=== PATIENT | male | born 1960 | race Caucasian/White ===

== ENCOUNTER 2018-12-15 09:57 | Inpatient (IN) ==
[2018-12-15] MEDS ORDERED: MoRPHine SULFATE 4 MG/ML 1 ML CARP\\VIAL ONE (10:18)
[2018-12-15] MEDS ORDERED: ONDANSETRON INJ 2 MG/ML 2 ML VIAL ONE (10:21)
[2018-12-15] MEDS ORDERED: SODIUM CHLORIDE 0.9% 1000ML 1,000 ML IV ONE ×3 (10:23→11:16)
[2018-12-15] MEDS ORDERED: ONDANSETRON INJ 2 MG/ML 2 ML VIAL IV STA (10:24)
[2018-12-15] MEDS ORDERED: OPTIRAY 320 125ml IV PRN (10:36)
--- NOTE | 2018-12-15 10:37 | XRay Report ---
XR chest 1V portable CLINICAL HISTORY: Chest pain. COMPARISON STUDY: No previous studies for comparison. FINDINGS: Lung volumes are normal. There is no pneumothorax or pleural effusion. There is no consolid ation or evidence for pulmonary edema. Cardiac size is normal. Mediastinal contours are normal. IMPRESSION: No acute cardiopulmonary findings. Electronically signed by: Tony Bonilla M.D. 12/15/2018 10:36 AM
[2018-12-15 10:38] LABS: Hematocrit (blood only) 48.3 % (42-52); Hemoglobin 16.7 g/dL (14.0-18.0); Mean Corpuscular Hgb Conc 34.6 g/dL (32-36); Mean Corpuscular Volume 98.4 fL (80-100); Mean Platelet Volume 11.6 fL (7.4-10.4); Platelet Count 299 K/uL (130-400); RDW Coefficient of Variation 12.5 % (11.5-14.5); RDW Standard Deviation 44.9 fL (36.4-46.3); Red Blood Count 4.91 M/uL (4.7-6.1); White Blood Count 26.26 K/uL (4.8-10.8)
[2018-12-15 10:42] LABS: iSTAT Creatinine 0.7 mg/dl (0.6-1.3); iSTAT Hemoglobin 17.3 g/dl (14.0-18.0); iSTAT Ionized Calcium 1.18 mmol/l (1.12-1.32); iSTAT Potassium 4.8 mEq/L (3.3-5.0)
--- NOTE | 2018-12-15 10:55 | CT Scan Report ---
CT OF THE CHEST WITH IV CONTRAST CLINICAL HISTORY: back pain and chest pain COMPARISON STUDY: No previous studies for comparison. TECHNIQUE: Following the IV administration of 119 mL of Optiray-320, CT of the thorax was performed from the thoracic inlet to the lung bases. Images are reviewed in the axial, sagittal, and coronal pl anes. IV contrast was administered without complication. A dose lowering technique was utilized adhe ring to the principles of ALARA. CT DOSE: 590.38 mGy.cm FINDINGS: Thyroid: Imaged portions of the thyroid gland are normal in appearance. Thoracic aorta: Noncontrast images reveal no evidence of acute aortic hematoma. Postcontrast images r eveal no evidence of thoracic aortic dissection. There is no evidence for aneurysm. Pulmonary vasculature: There is no definite pulmonary embolism however the study is limited due to co ntrast timing and significant respiratory motion artifact. HEART: There is no pericardial effusion. Lungs and pleural spaces: There is significant respiratory motion artifact. There is no pneumothorax. There is no focal pulmonary consolidation. There are no pleural effusions. Mediastinum: There is no evidence of pathologic lymphadenopathy Ramonita: There is no evidence of pathologic hilar adenopathy Axilla: There is no evidence of pathologic axillary lymphadenopathy Upper abdomen: Partially visualized upper abdominal viscera is within normal limits. Skeletal structures: There are no lytic or blastic osseous lesions. IMPRESSION: 1. Study compromised due to respiratory motion artifact 2. No evidence of thoracic aortic aneurysm or dissection 3. No acute intrathoracic findings. Electronically signed by: Williams Jacques M.D. 12/15/2018 10:54 AM
[2018-12-15 11:10] LABS: Alanine Aminotransferase 43 U/L (12-78); Aspartate Aminotransferase 25 U/L (15-37); BUN Creatinine Ratio 15.3 (10-20); Blood Urea Nitrogen 19 mg/dl (7-18); Calcium 8.2 mg/dl (8.5-10.1); Carbon Dioxide 5 mmol/L (21-32); Chloride 106 mmol/L (98-107); Creatinine Clr Calc Pharmacy 65.2 ml/min; Est GFR (African American) 71.9; Glucose 384 mg/dl (70-99); Sodium 137 mmol/L (136-145)
[2018-12-15 11:12] LABS: Albumin Globulin Ratio 1.1 (0.9-2); Alkaline Phosphatase 153 U/L (45-117); Bilirubin,Total 0.5 mg/dl (0.2-1); Globulin 3.5 gm/dl (2.5-4.0); Total Protein 7.5 gm/dl (6.4-8.2); Troponin I < 0.015 ng/ml (0-0.045)
--- NOTE | 2018-12-15 11:14 | CT Scan Report ---
CT ANGIOGRAM OF THE ABDOMEN AND PELVIS CLINICAL HISTORY: Atypical chest pain. Back pain. COMPARISON STUDY: Abdominal CT dated 03/20/2009. TECHNIQUE: Following the IV administration of 119 cc of Optiray 320, CT angiogram of the abdomen and pelvis was performed from the lung bases the proximal femora. Images are reviewed in the axial, sagit chela, and coronal planes. 3-D MIPS images are created and assessed. IV contrast was administered witho ut complication. A dose lowering technique was utilized adhering to the principles of ALARA. The exa mination is degraded by motion artifact. FINDINGS: Lower chest: The heart is enlarged and without pericardial effusion. The lung bases are clear. There is a small hiatal hernia. Liver: The contrast-enhanced liver is normal in size, contour, and attenuation. There is no intrahepa tic or ductal dilatation. Gallbladder: Unremarkable. Spleen: Normal in size and attenuation, noting heterogeneous arterial phase enhancement. Pancreas: Moderately atrophic and grossly unremarkable. Adrenal glands: Unremarkable. Kidneys: The contrast enhanced kidneys are normal in size and without hydronephrosis. The kidneys enh ance symmetrically. Abdominal aorta and iliac arteries: The abdominal aorta is normal in course and caliber noting mild a therosclerotic calcification. The iliac arteries are widely patent bilaterally. There is no aneurysm or dissection identified. Major branches of the abdominal aorta: The celiac trunk, superior mesenteric, and inferior mesenteric arteries are widely patent. Hepatic arterial anatomy is conventional. The splenic artery is patent. Single bilateral renal arteries are patent. Bowel: There is moderate colonic fecal retention. No bowel obstruction is seen. The appendix is norm al as visualized. Peritoneum: There is no intraperitoneal free air or abdominal ascites. There is a fat-containing umbi lical hernia. There is induration within the simultaneous fat of the ventral abdominal wall. Lymphadenopathy: None. Pelvic viscera: The prostate gland is enlarged and heterogeneous, measuring 5.5 cm in transverse diam eter. There is median lobe hypertrophy. The bladder is distended. The bladder wall is thickened and t rabeculated indicating chronic outlet obstruction. Skeletal structures: No destructive bony lesions are seen. IMPRESSION: 1. Motion compromised examination. 2. There is no aneurysm or dissection identified involving the abdominal aorta. 3. Unremarkable CT angiogram of the major branches of the abdominal aorta. 4. Cardiomegaly. 5. No acute infectious or inflammatory findings are identified in the abdomen or pelvis. 6. Moderate constipation. 7. Prostatomegaly with evidence of chronic bladder outlet obstruction. 8. Foci of induration are seen throughout the subcutaneous fat of the ventral abdominal wall, possibl y related to subcutaneous injections. Clinical correlation will be required. Electronically signed by: Navjot Barriga M.D. 12/15/2018 11:13 AM
[2018-12-15] MEDS ORDERED: SEVERE STRESS LEVEL ONE (11:15)
[2018-12-15] MEDS ORDERED: DKA GOAL RANGE 150-250 mg/dl ONE ×2 (11:15→12:57)
[2018-12-15] MEDS ORDERED: INSULIN REGULAR 250 UNITS in SODIUM CHLORIDE 0.9% 247.5 ML IV SCH ×2 (11:15→12:57)
[2018-12-15] MEDS ORDERED: PIPERACILLIN/TAZOBACTAM 4.5 GM/120 ML BAG IV ONE (11:16)
[2018-12-15] MEDS ORDERED: VANCOMYCIN CONSULT ACTIVE PRN (11:16)
[2018-12-15] MEDS ORDERED: VANCOMYCIN HCL 1,500 MG in SODIUM CHLORIDE 0.9% 500 ML IV ONE (11:16)
[2018-12-15] MEDS ORDERED: PIPERACILL/TAZOBAC CONSULT ACTIVE PRN ×2 (11:16→12:57)
[2018-12-15 11:17] LABS: Basophils # (auto) 0.12 K/uL (0-0.2); Basophils % (auto) 0.5 %; Eosinophils # (auto) 0.07 K/uL (0-0.5); Eosinophils % (auto) 0.3 %; Immature Granulocytes # (auto) 0.38 K/uL (0.00-0.02); Immature Granulocytes % (auto) 1.4 %; Lymphocytes # (auto) 3.93 K/uL (1.2-3.4); Monocytes # (auto) 1.13 K/uL (0.11-0.59); Monocytes % (auto) 4.3 %; Neutrophils # (auto) 20.63 K/uL (1.4-6.5); Neutrophils % (auto) 78.5 %
[2018-12-15] MEDS ORDERED: SODIUM BICARBONATE 8.4% 150 MEQ in DEXTROSE 5% 1,000 ML IV SCH (11:40)
[2018-12-15 11:46] LABS: Oxygen Saturation VBG 90.4 %; pH VBG 6.9 (7.36-7.41)
[2018-12-15 11:52] LABS: Acetaminophen < 2 ug/ml (10-30); Salicylate 5.5 mg/dl (2.8-20)
--- NOTE | 2018-12-15 12:02 | History & Physical Report ---
Date of Service December 15, 2018 Assessment & Plan (1) DKA (diabetic ketoacidoses): DM-I pt Has not checked BS in years per Recent weight loss Elevated AG and LA DKA protocol A1c pending Admit to ICU (2) Leukocytosis: Likely in response to DKA Diffuse rash Will cover with abx for now but no clear infection Vanco/zosyn in the ED, will continue zosyn for now (3) HTN (hypertension): continue home meds when taking PO PRN for now (4) Alcohol abuse: is uncertain and pt does not answer states at least 1 glass of per night and "maybe more. That could be an issue." Will put on risk for alcohol withdrawal protocol for now (5) DVT prophylaxis: Heparin for DVT proph History of Present Illness Primary Care Provider: Mike Sage MD 58 y/o M who was brought to the ED by EMS after he was found to be SOB and ill appearing at home. tells me that pt had been in [place] for a friend's birthday until yesterday. He was complaining of back pain yesterday, which he attributed to carrying heavy bags. was up this AM preparing for work around 5a and pt stated his back hurt more at that time. Then around 6am pt had 3 episodes of emesis and started to have SOB. also noted a diffuse rash over his chest, abd, back that she had not seen prior. At one point her asked her to rub an area under his L axilla, but he did not expressly state he was having chest pain. Pt was thrashing around in bed and having difficulty breathing, so she called 911. states that pt is a Type I DM pt. She is uncertain of his insulin regimen at home but know that he takes humalin and lantus. She states that he has stopped taking his BS for the last several years. She states he was recently started on HTN medication in the last year. She states he has lost a lot of weight in the last year and she has expressed concern to him about this. She denies known hx of prostate issues, but states that on recent car trips they have had to stop almost every hour for him to urinate. states that he has never had an episode of DKA to her knowledge. "He is never sick." She states he has been struggling recently as he has been unemployed for the last year. Pt states he is still having back pain. He also states he is very thirsty. Denies headache, vision changes, nausea, abd pain. Pt denies fever, SOB, chest pain, c/d, LE pain or swelling. Allergies Allergy/AdvReac Type Severity Reaction Status Date / Time No Known Allergies Allergy Unverified 12/15/18 11:31 Home Medications Home Medications Medication Instructions Recorded Confirmed Type insulin glargine [Lantus U-100 10 units SUBCUT QAM 12/15/18 12/15/18 History Insulin] losartan 25 mg PO DAILY 12/15/18 12/15/18 History Past Med/Surg History Medical History Diabetes HTN (hypertension) Family History Father Heart disease [facility] Social History Preferred Language: Serbian marital status: Current Living Situation: Spouse current occupational status: unemployed and previously employed Feels Safe at Home: Yes Smoking Status: Never smoker Hx Alcohol Use: Yes Hx Substance Use: No Review of Systems Pertinent positives and negatives reviewed in HPI--all others negative Physical Exam Vital Signs (Past 24 Hours): Last Vital Signs Pulse 114 H 12/15/18 10:45 Resp 32 H 12/15/18 10:45 BP 162/87 H 12/15/18 10:45 Pulse Ox 98 12/15/18 10:45 Constitutional: WD/WN, vitals as above + acute distress and + ill appearing Pt has lost weight since I have last seen him Thrashing in bed at times, other times resting comfortably Eyes: normal visual diaz by confrontation and + anicteric sclerae Neck: normal visual inspection and trachea midline Respiratory: + respiratory distress (thrashing at times, other times lying calm and breathing is WNL) Auscultation: lungs clear to auscultation bilaterally Cardiovascular: Rate/Rhythm: regular rhythm and + tachycardic Gastrointestinal (Abdomen): Inspection/Auscultation: abdomen not distended Percussion/Palpation: abdomen soft; abdomen nontender Musculoskeletal: Head/Neck/Chest: normocephalic and head atraumatic negative for edema, peripheral pulses intact Skin: diffuse rash over trunk, patchy Neurologic: awake; not confused Speech / Cognition: normal speech Psychiatric: Orientation: alert Affect: + anxious affect Results & Data Diagnostic Findings CT chest: neg for acute CXR: neg for acute CT AP: 1. Motion compromised examination. 2. There is no aneurysm or dissection identified involving the abdominal aorta. 3. Unremarkable CT angiogram of the major branches of the abdominal aorta. 4. Cardiomegaly. 5. No acute infectious or inflammatory findings are identified in the abdomen or pelvis. 6. Moderate constipation. 7. Prostatomegaly with evidence of chronic bladder outlet obstruction. 8. Foci of induration are seen throughout the subcutaneous fat of the ventral a bdominal wall, possibly related to subcutaneous injections. Clinical correlation will be required. ECG Rhythm: sinus tachycardia Code Status & VTE Plan Code Status Full code VTE Prophylaxis Plan VTE Prophylaxis will be ordered: Yes (1) DKA (diabetic ketoacidoses) Diabetes mellitus complication detail: without coma Diabetes mellitus type: type 1 Qualified Code(s): E10.10 - Type 1 diabetes mellitus with ketoacidosis without coma
[2018-12-15] MEDS ORDERED: LORazepam 1 MG TAB PO PRN ×2 (12:18)
[2018-12-15] MEDS ORDERED: LORazepam 1 MG/2 ML VIAL IV PRN (12:18)
[2018-12-15] MEDS ORDERED: NovoLIN-R BOLUS FROM BAG IV ONE (12:20)
[2018-12-15] MEDS: INSULIN REGULAR 250 UNITS in SODIUM CHLORIDE 0.9% 247.5 ML IV SCH (12:23)
[2018-12-15] MEDS ORDERED: CARBOHYDRATES FOR HYPOGLYCEMIA PO PRN (12:30)
[2018-12-15] MEDS ORDERED: GLUCAGON FOR INJ 1 MG VIAL IM PRN (12:30)
[2018-12-15] MEDS ORDERED: GLUCOSE 10 TABS/TUBE PO PRN (12:30)
[2018-12-15] MEDS ORDERED: DEXTROSE 50% 50 ML SYRINGE IV PRN (12:30)
[2018-12-15] MEDS ORDERED: GLUCOSE 40% GEL 15 GM TUBE PO PRN (12:30)
[2018-12-15 12:36] LABS: HCO3 ABG 3 mmol/L (19-24); Oxygen Saturation ABG 99.2 % (90-95); PCO2 ABG 14 mmHg (35-46); PO2 ABG 203 mm/Hg (80-95)
[2018-12-15] MEDS ORDERED: METOPROLOL TARTRATE 1 MG/ML VIAL IV PRN (12:38)
[2018-12-15 12:40] LABS: Allen Test Pos (Pos)
[2018-12-15] MEDS ORDERED: MoRPHine SULFATE 10 MG/ML CARP/VIAL IV STA (12:56)
[2018-12-15] MEDS ORDERED: MODERATE STRESS LEVEL ONE (12:57)
[2018-12-15] MEDS ORDERED: ICU PROTOCOL FOR HYPERGLYCEMIA PRN (12:57)
[2018-12-15] MEDS ORDERED: PIPERACILLIN/TAZOBACTAM 4.5 GM in DEXTROSE 5% 100 ML IV STA (12:57)
[2018-12-15] MEDS ORDERED: PHARMACY GLYCEMIC MGMT CONSULT STA (12:57)
[2018-12-15] MEDS ORDERED: INSULIN ASPART 100 UNITS/ML 3 ML PEN SC SCH (13:00)
[2018-12-15] MEDS ORDERED: PIPERACILLIN/TAZOBACTAM 4.5 GM in DEXTROSE 5% 100 ML IV ONE (13:30)
[2018-12-15 13:48] LABS: Base Excess VBG -27.6 mEq/L; pH VBG 6.85 (7.36-7.41)
[2018-12-15] MEDS: INSULIN ASPART 100 UNITS/ML 3 ML PEN SC SCH ×3 (14:18→20:10)
[2018-12-15] MEDS ORDERED: SODIUM BICARB 8.4% INJ 50 MEQ/50 ML SYR ONE (14:33)
[2018-12-15] MEDS ORDERED: SODIUM BICARB 8.4% INJ 50 MEQ/50 ML SYR IV STA (14:35)
[2018-12-15 14:42] LABS: BUN Creatinine Ratio 15.2 (10-20); Blood Urea Nitrogen 21 mg/dl (7-18); Calcium 7.9 mg/dl (8.5-10.1); Carbon Dioxide < 5 mmol/L (21-32); Chloride 105 mmol/L (98-107); Est GFR (African American) 62.7; Est GFR (Non-African American) 54.1; Glucose 471 mg/dl (70-99); Magnesium 2.6 mg/dl (1.8-2.4); Phosphorus 7.2 mg/dl (2.5-4.9); Potassium 4.5 mmol/L (3.5-5.1); Sodium 136 mmol/L (136-145)
[2018-12-15 14:57] LABS: Amphetamines+Metham, Urine Neg (Neg); Barbiturates, Urine Neg (Neg); Benzodiazepine, Urine Neg (Neg); Cocaine, Urine Neg (Neg); MDMA (Ecstacy), Urine Neg (Neg); Methadone, Urine Neg (Neg); Opiate, Urine Neg (Neg); Phencyclidine, Urine Neg (Neg)
--- NOTE | 2018-12-15 15:11 | Critical Care Consultation ---
Date of Consultation December 15, 2018 Assessment & Plan (1) DKA (diabetic ketoacidoses): Reason Critically Ill: 58-year-old male with past medical history of DM type I, who presents to the ICU with acute metabolic encephalopathy secondary to DKA. Neuro - [facility] ICU: Positive Acute metabolic encephalopathy/DKA/metabolic acidosis -Blood glucose 390 in the ED, pH 6.90 -Placed on insulin drip and bicarb drip -Hemoglobin A1c pending, states he has not been checking his glucose regularly in the past 2 years -Every 4 hours BMP, mag and phosphorus, VBG -Every hour blood glucose Cardiac - Hypertensioncontinue losartan when appropriate Respiratory - Tachypneacompensating for metabolic acidosis GI - Abdominal tendernessCT abdomen negative for acute process, likely symptomatic from DKA - RENAL/LYTES - Q. 4-hour BMPs, potassium additive to fluids for anticipated hypokalemia during correction of acidosis - Foleystrict I's and O's Suspected BPHCT abdomen showed prostatomegaly and chronic hyperinflation of bladder, may need follow-up outpatient ENDO - DM type Imanaged as stated above, will transition to insulin injection when appropriate, will need consult for nurse educator during this admission HEME - LeukocytosisWBC 27 on admission, likely secondary to DKA/metabolic acidosis, will rule out infectious process - routine CBCs, trend ID - Vancomycin and Zosyn narrowed to Rocephin Blood cultures and pro-calcitonin pending Chest x-ray negative UA pending Influenza swab pending LINES/IV ACCESS - Peripheral IV x2, Florence DVT PROPHYLAXIS - SCDs, subcu heparin (2) DVT prophylaxis: (3) Metabolic acidosis: (4) Encephalopathy acute: Supervising Physician Co-Signing Physician Notes I have personally evaluated and examined this patient. I agree with assessment and plan of Cait HUGGINS. Initially attempted PICC line, patient unable to follow commands adequately and violated sterile field several times so this procedure was aborted and moved to central venous access. Please see procedure note for further details. Central venous access required due to patient moving arms and requiring aggressive potassium repletion for severe DKA with profound metabolic acidosis. I have personally spent 70 minutes of critical care time in the direct management of this patient. This is a life/limb threatening event. This includes time spent evaluating patient, direct bedside care, chart review, placing orders, interpretation of diagnostic studies, discussion with consultants, patient, and/or family members regarding treatment decisions, as well as other required patient management activities. This time is exclusive of all separately billable procedures, and teaching time and separate from and in addition to any other critical care service time. History of Present Illness Attending Physician: Cuong Logan History of Present Illness 58-year-old male with past medical history diabetes type 1, who presented to the ED via EMS with altered mental status. Patient returned from a trip to [place] yesterday and had been complaining of back pain. states that the patient had episode of emesis x3 this morning and she later found the patient thrashing and breathing rapidly in bed. At this point she called 911. Of note, patient had stated he had not been feeling well for the past couple of weeks. She also states that the patient had been poorly managing his diabetes for the past 2 years. In the ED, blood glucose was 390 on admission and pH was 6.90. He was placed on insulin drip and bicarb drips. On arrival to the ICU the patient is confused, appearing very uncomfortable and tachypneic. He was afebrile, and complains of abdominal pain with palpation and back pain. He denies chest pain, neck pain, palpitations, syncope, dizziness. Of note, pH dropped to 6.85 on VBG, and patient given 2 amps of bicarb. Will remain in ICU for management of DKA with severe metabolic acidosis for now. Allergies Allergy/AdvReac Type Severity Reaction Status Date / Time No Known Allergies Allergy Unverified 12/15/18 11:31 Home Medications Home Medications Medication Instructions Recorded Confirmed Type insulin glargine [Lantus U-100 10 units SUBCUT QAM 12/15/18 12/15/18 History Insulin] losartan 25 mg PO DAILY 12/15/18 12/15/18 History Patient History Medical History Diabetes HTN (hypertension) Family History Father Heart disease [place] Social History Communication Ability: Effective Handle Bender Required: No Beliefs That Will Affect Care: None marital status: Current Living Situation: Spouse current occupational status: unemployed and previously employed Other Information That Helps Us Care for You: No Feels Safe at Home: Yes Safety Concerns: Feels Safe At This Time Smoking Status: Light tobacco smoker Hx Alcohol Use: Yes Hx Substance Use: No Review of Systems Unable to assess 12 system ROS secondary to altered mental status. See HPI Physical Exam Vital Signs (Past 24 Hours): Last Vital Signs Temp 35.8 C L 12/15/18 12:48 Pulse 110 H 12/15/18 12:48 Resp 36 H 12/15/18 12:48 BP 155/85 H 12/15/18 12:48 Pulse Ox 100 12/15/18 12:48 Constitutional: + acute distress, + ill appearing and + altered mental status Eyes: PERRL, conjunctivae normal, anicteric sclerae Neck: trachea midline, no thyromegaly No nuchal rigidity Respiratory: normal respiratory effort, lungs clear to auscultation Rapid and shallow breathing Cardiovascular: RRR, no murmur, no edema Rate/Rhythm: + tachycardic Heart Sounds: normal S1 and normal S2 No edema, no JVD Gastrointestinal (Abdomen): Abdomen is soft flat. Tender with palpation. Bowel normoactive with auscultation in all 4 quadrants Skin: no rashes, warm and dry Neurologic: Patient is confused but alert to self and identifies family. Displays rapid alternating movements. PERRLA. Cough gag corneals intact. Genitourinary: Florence inserted Results & Data Laboratory Results Laboratory Results - last 24 hr 12/15/18 12/15/18 12/15/18 10:12 10:25 10:25 WBC 26.26 H RBC 4.91 Hgb 16.7 POC Hgb Hct 48.3 POC Hct MCV 98.4 MCH 34.0 MCHC 34.6 RDW Std Deviation 44.9 RDW Coeff of Mart 12.5 Plt Count 299 MPV 11.6 H Immature Gran % (Auto) 1.4 Neut % (Auto) 78.5 Lymph % (Auto) 15.0 Stanley % (Auto) 4.3 Eos % (Auto) 0.3 Baso % (Auto) 0.5 Immature Gran # (Auto) 0.38 H Neut # (Auto) 20.63 H Lymph # (Auto) 3.93 H Stanley # (Auto) 1.13 H Eos # (Auto) 0.07 Baso # (Auto) 0.12 ABG pH ABG pCO2 ABG pO2 ABG HCO3 ABG O2 Saturation ABG Base Excess [place] Test VBG pH VBG pCO2 VBG pO2 VBG HCO3 VBG O2 Saturation VBG Base Excess Barometric Pressure Oxygen Given POC Sodium Sodium 137 POC Potassium Potassium 5.0 POC Chloride Chloride 106 Carbon Dioxide 5 L* POC Total CO2 Anion Gap 26.0 H POC Anion Gap POC BUN BUN 19 H Creatinine 1.26 POC Creatinine Est Cr Clr Drug Dosing 65.2 Est GFR ( Amer) 71.9 Est GFR (Non-Af Amer) 62.0 BUN/Creatinine Ratio 15.3 Glucose 384 H* POC Glucose 367 H* POC Glucose (other) POC Lactic Acid Jaspal Calcium 8.2 L POC Ioniz Calcium Vivi Phosphorus Magnesium Total Bilirubin 0.5 AST 25 ALT 43 Alkaline Phosphatase 153 H Troponin I < 0.015 Total Protein 7.5 Albumin 4.0 Globulin 3.5 Albumin/Globulin Ratio 1.1 Lipase 55 L Beta-Hydroxybutyric Acd Specimen Hemolysis Salicylates Acetaminophen Ethyl Alcohol mg/dL 12/15/18 12/15/18 12/15/18 10:25 10:29 10:58 WBC RBC Hgb POC Hgb 17.3 Hct POC Hct 51 MCV MCH MCHC RDW Std Deviation RDW Coeff of Mart Plt Count MPV Immature Gran % (Auto) Neut % (Auto) Lymph % (Auto) Stanley % (Auto) Eos % (Auto) Baso % (Auto) Immature Gran # (Auto) Neut # (Auto) Lymph # (Auto) Stanley # (Auto) Eos # (Auto) Baso # (Auto) ABG pH ABG pCO2 ABG pO2 ABG HCO3 ABG O2 Saturation ABG Base Excess [place] Test VBG pH VBG pCO2 VBG pO2 VBG HCO3 VBG O2 Saturation VBG Base Excess Barometric Pressure Oxygen Given POC Sodium 139 Sodium POC Potassium 4.8 Potassium POC Chloride 114 H Chloride Carbon Dioxide POC Total CO2 6 L* Anion Gap POC Anion Gap 26.0 H POC BUN 20 H BUN Creatinine POC Creatinine 0.7 Est Cr Clr Drug Dosing Est GFR ( Amer) Est GFR (Non-Af Amer) BUN/Creatinine Ratio Glucose POC Glucose POC Glucose (other) 393 H* POC Lactic Acid Jaspal Calcium POC Ioniz Calcium Vivi 1.18 Phosphorus Magnesium Total Bilirubin AST ALT Alkaline Phosphatase Troponin I Total Protein Albumin Globulin Albumin/Globulin Ratio Lipase Beta-Hydroxybutyric Acd 85.71 H Specimen Hemolysis Salicylates 5.5 Acetaminophen < 2 L Ethyl Alcohol mg/dL 12/15/18 12/15/18 12/15/18 11:05 11:26 11:59 WBC RBC Hgb POC Hgb Hct POC Hct MCV MCH MCHC RDW Std Deviation RDW Coeff of Mart Plt Count MPV Immature Gran % (Auto) Neut % (Auto) Lymph % (Auto) Stanley % (Auto) Eos % (Auto) Baso % (Auto) Immature Gran # (Auto) Neut # (Auto) Lymph # (Auto) Stanley # (Auto) Eos # (Auto) Baso # (Auto) ABG pH ABG pCO2 ABG pO2 ABG HCO3 ABG O2 Saturation ABG Base Excess [place] Test VBG pH 6.90 L VBG pCO2 22 L VBG pO2 78 VBG HCO3 4 VBG O2 Saturation 90.4 VBG Base Excess -28.0 Barometric Pressure 737.7 Oxygen Given POC Sodium Sodium POC Potassium Potassium POC Chloride Chloride Carbon Dioxide POC Total CO2 Anion Gap POC Anion Gap POC BUN BUN Creatinine POC Creatinine Est Cr Clr Drug Dosing Est GFR ( Amer) Est GFR (Non-Af Amer) BUN/Creatinine Ratio Glucose POC Glucose 450 H* POC Glucose (other) POC Lactic Acid Jaspal 4.46 H Calcium POC Ioniz Calcium Vivi Phosphorus Magnesium Total Bilirubin AST ALT Alkaline Phosphatase Troponin I Total Protein Albumin Globulin Albumin/Globulin Ratio Lipase Beta-Hydroxybutyric Acd Specimen Hemolysis Salicylates Acetaminophen Ethyl Alcohol mg/dL 12/15/18 12/15/18 12/15/18 12:05 13:03 13:17 WBC RBC Hgb POC Hgb Hct POC Hct MCV MCH MCHC RDW Std Deviation RDW Coeff of Mart Plt Count MPV Immature Gran % (Auto) Neut % (Auto) Lymph % (Auto) Stanley % (Auto) Eos % (Auto) Baso % (Auto) Immature Gran # (Auto) Neut # (Auto) Lymph # (Auto) Stanley # (Auto) Eos # (Auto) Baso # (Auto) ABG pH ABG pCO2 14 L ABG pO2 203 H ABG HCO3 3 L ABG O2 Saturation 99.2 H ABG Base Excess -28.9 L [place] Test Pos VBG pH 6.85 L VBG pCO2 35 L VBG pO2 41 VBG HCO3 6 VBG O2 Saturation 67.0 VBG Base Excess -27.6 Barometric Pressure 737.6 736.5 Oxygen Given ROOM AIR POC Sodium Sodium 136 POC Potassium Potassium 4.5 POC Chloride Chloride 105 Carbon Dioxide < 5 L* POC Total CO2 Anion Gap 27.0 H POC Anion Gap POC BUN BUN 21 H Creatinine 1.41 H POC Creatinine Est Cr Clr Drug Dosing 54.0 Est GFR ( Amer) 62.7 Est GFR (Non-Af Amer) 54.1 BUN/Creatinine Ratio 15.2 Glucose 471 H* POC Glucose POC Glucose (other) POC Lactic Acid Jaspal Calcium 7.9 L POC Ioniz Calcium Vivi Phosphorus 7.2 H Magnesium 2.6 H Total Bilirubin AST ALT Alkaline Phosphatase Troponin I Total Protein Albumin Globulin Albumin/Globulin Ratio Lipase Beta-Hydroxybutyric Acd Specimen Hemolysis Salicylates Acetaminophen Ethyl Alcohol mg/dL 12/15/18 13:17 WBC RBC Hgb POC Hgb Hct POC Hct MCV MCH MCHC RDW Std Deviation RDW Coeff of Mart Plt Count MPV Immature Gran % (Auto) Neut % (Auto) Lymph % (Auto) Stanley % (Auto) Eos % (Auto) Baso % (Auto) Immature Gran # (Auto) Neut # (Auto) Lymph # (Auto) Stanley # (Auto) Eos # (Auto) Baso # (Auto) ABG pH ABG pCO2 ABG pO2 ABG HCO3 ABG O2 Saturation ABG Base Excess [place] Test VBG pH VBG pCO2 VBG pO2 VBG HCO3 VBG O2 Saturation VBG Base Excess Barometric Pressure Oxygen Given POC Sodium Sodium POC Potassium Potassium POC Chloride Chloride Carbon Dioxide POC Total CO2 Anion Gap POC Anion Gap POC BUN BUN Creatinine POC Creatinine Est Cr Clr Drug Dosing Est GFR ( Amer) Est GFR (Non-Af Amer) BUN/Creatinine Ratio Glucose POC Glucose POC Glucose (other) POC Lactic Acid Jaspal Calcium POC Ioniz Calcium Vivi Phosphorus Magnesium Total Bilirubin AST ALT Alkaline Phosphatase Troponin I Total Protein Albumin Globulin Albumin/Globulin Ratio Lipase Beta-Hydroxybutyric Acd Specimen Hemolysis Salicylates Acetaminophen Ethyl Alcohol mg/dL < 3.0 Medications Administered Home Medications insulin glargine [Lantus U-100 Insulin] 10 units SUBCUT QAM 12/15/18 [History Confirmed 12/15/18] losartan 25 mg PO DAILY 12/15/18 [History Confirmed 12/15/18] Active Medications Dextrose (Dextrose 50%) 25 - 50 ml IV UD PRN; Protocol PRN Reason: Hypoglycemia Protocol Stop: 01/14/19 12:29 Glucagon (Glucagen) 1 mg IM UD PRN; Protocol PRN Reason: Hypoglycemia Protocol Stop: 01/14/19 12:29 Glucose (Glucose 40%) 15 - 30 gm PO UD PRN; Protocol PRN Reason: Hypoglycemia Protocol Stop: 01/14/19 12:29 Glucose (Dex4 Glucose) 4 - 8 tabs PO UD PRN; Protocol PRN Reason: Hypoglycemia Protocol Stop: 01/14/19 12:29 Heparin Sodium (Porcine) (Heparin Sodium (Porcine)) 5,000 units SQ Q12 PATSY Stop: 01/14/19 20:59 Sodium Bicarbonate 150 meq/ (Dextrose) 1,150 mls @ 120 mls/hr IV .Q9H35M PATSY Stop: 12/15/18 21:14 Last Admin: 12/15/18 12:16 Dose: 120 mls/hr Documented by: Insulin Human Regular 250 (units/ Sodium Chloride) 250 mls @ 3 mls/hr IV .Q24H PATSY; Protocol Stop: 01/14/19 12:19 Last Titration: 12/15/18 14:07 Dose: 5.9 units/hr, 5.9 mls/hr Documented by: Lorazepam (Ativan) 1 mg in 2 mls @ 2 mls/min IV ONE PRN; Protocol PRN Reason: EtoH Withdrawal AWSS 6-10 Stop: 01/14/19 12:17 Potassium Acetate 10 meq/ (Sodium Chloride) 105 mls @ 105 mls/hr IV Q1H STA Stop: 12/15/18 15:36 Insulin Aspart (Novolog Flexpen) 0 units SC [facility] Stop: 01/14/19 12:59 Last Admin: 12/15/18 13:20 Dose: Not Given Documented by: Insulin Aspart (Novolog Flexpen) 0 units SC [facility] Stop: 01/14/19 12:59 Last Admin: 12/15/18 14:18 Dose: Not Given Documented by: Ioversol (Optiray 320 125ml) 119 ml IV ONCE PRN PRN Reason: Interaction Checking Stop: 12/19/18 10:35 Last Admin: 12/15/18 10:36 Dose: 119 ml Documented by: Lorazepam (Ativan) 1 mg PO ONE PRN; Protocol PRN Reason: EtoH Withdrawal AWSS 6-10 Lorazepam (Ativan) 1 - 3 mg PO UD PRN; Protocol PRN Reason: EtoH Withdrawal AWSS 6-10+ Stop: 01/14/19 12:17 Metoprolol Tartrate (Lopressor) 5 mg IV Q5M PRN PRN Reason: Tachycardia Stop: 01/14/19 12:37 Miscellaneous (Carbohydrates For Hypoglycemia) 15 - 30 gm PO UD PRN PRN Reason: Hypoglycemia Treatment Stop: 01/14/19 12:29 Miscellaneous (Pending 1/2nss+20meq Kcl Ivf) 1 ea N/A Q2H PATSY Stop: 01/14/19 12:56 Miscellaneous (Pending D5 1/2ns+20meq Kcl Ivf) 1 ea N/A Q2H PATSY Stop: 01/14/19 12:56 Miscellaneous (Icu Protocol For Hyperglycemia) 1 ea N/A PRN PRN; Protocol PRN Reason: Hyperglycemia Protocol Stop: 12/17/18 12:56 Miscellaneous Information (Consult) 1 ea N/A UD PRN PRN Reason: Consult Stop: 01/14/19 11:15 Miscellaneous Information (Consult) 1 ea N/A UD PRN PRN Reason: Consult Stop: 01/14/19 11:15 Miscellaneous Information (Consult Glycemic Management Pharmacy) 1 ea N/A NOW STA Stop: 12/15/18 12:58 Last Admin: 12/15/18 14:40 Dose: 1 ea Documented by: Sodium Bicarbonate (Sodium Bicarbonate 8.4%) 100 meq IV NOW STA Stop: 12/15/18 14:36 Last Admin: 12/15/18 14:39 Dose: 100 meq Documented by: (1) DKA (diabetic ketoacidoses) Diabetes mellitus complication detail: without coma Diabetes mellitus type: type 1 Qualified Code(s): E10.10 - Type 1 diabetes mellitus with ketoacidosis without coma
[2018-12-15] MEDS ORDERED: PHARMACY GLYCEMIC MGMT CONSULT PRN (15:15)
[2018-12-15 15:17] LABS: INR 1.1 (0.9-1.1); Prothrombin Time 11.2 Seconds (9.0-12.0)
[2018-12-15] MEDS: PENDING 1/2NSS+20mEq KCL IVF SCH ×4 (15:18→22:25)
[2018-12-15] MEDS: PENDING D5 1/2NS+20mEq KCL IVF SCH ×5 (15:18→22:25)
[2018-12-15] MEDS ORDERED: MIDAZOLAM HCL 5 MG/ML 1 ML VIAL IV STA ×2 (15:20→16:26)
[2018-12-15] MEDS ORDERED: POTASSIUM CHLORIDE PWD 20 MEQ PACK PO ONE (15:21)
[2018-12-15] MEDS ORDERED: MIDAZOLAM HCL 1 MG/ML 2ML VIAL ONE (15:24)
[2018-12-15] MEDS: POTASSIUM ACETATE 10 MEQ in 0.9 % SODIUM CHLORIDE 100 ML IV SCH ×2 (15:32→16:46)
[2018-12-15 16:22] LABS: Appearance Urine Clear (Clear); Bacteria Urine Automated Negative (Negative); Bilirubin Urine Negative (Negative); Blood Urine 1+ (Negative); Color Urine Yellow; Epithelial Cell Urine Auto >30 /lpf (0-5); Glucose Urine UA 3+ (Negative); Leukocyte Esterase Urine Negative (Negative); Nitrite Urine Negative (Negative); Protein Urine 1+ (Negative); RBC Urine Automated 0-4 /hpf (0-4); Specific Gravity Urine 1.036 (1.000-1.030); Urobilinogen Urine Negative (Negative)
[2018-12-15 16:26] LABS: Ketones Urine 4+ (Negative)
--- NOTE | 2018-12-15 16:30 | Emergency Department Note ---
Entered by Sheba Phillips acting as a scribe for History of Present Illness General Chief complaint: Shoulder Pain Time Seen by Provider: 12/15/18 10:14 Source: family History of Present Illness Onset (ago): day(s) (last night) Location: back Radiation: extremity (left arm) and other (chest) Pain Consistency: + other (worsening) Maximum Pain Intensity: 10 Quality: + stabbing Associated symptoms: + denies other symptoms (rhinorrhea), + chest pain, + nausea/vomiting, + shortness of breath and + other (left arm pain, abdominal pain); no cough The patient is a 58 year old male who presents to the Emergency Room with complaints of worsening back pain starting last night. Per the patients , last night the patient started having a sharp pain in between his shoulder blades. She states that by this morning it was radiating into the left side of his chest, under his left armpit, and down his left arm. She reports that he has also been short of breath and vomiting from the pain. The patient complains of a bdominal pain. The patient denies cough and rhinorrhea. 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 and A total of 10 systems reviewed and were otherwise negative Physical Exam Vital Signs Vital Signs - 24 hr 12/15/18 10:00 12/15/18 10:33 12/15/18 10:45 Temperature Temperature Source Sepsis Recent Fever Within 48 Hours No Sepsis New/Unexplained Change in Mental Status No Sepsis Action Taken by Nursing No Action Required Pulse Rate 110 H Pulse Rate [Apical] 114 H Pulse Rate from SpO2 Sensor Pulse Rhythm Regular Pulse Rhythm [Apical] Regular Respiratory Rate 31 H 32 H Respiratory Effort / Characteristics Short of Breath Short of Breath Respiratory Depth Respiratory Pattern Regular Rapid/Shallow Tachypnea Blood Pressure 211/107 H Blood Pressure [Left Arm] Blood Pressure [Right Arm] 162/87 H Blood Pressure Mean 141 Blood Pressure Mean [Left Arm] Blood Pressure Mean [Right Arm] 112 Blood Pressure Position [Left Arm] Blood Pressure Position [Right Arm] Pulse Oximetry 98 100 98 Oxygen Delivery Method Room Air Room Air Room Air 12/15/18 11:15 12/15/18 12:29 12/15/18 12:48 Temperature 35.8 C L Temperature Source Temporal Artery Scan Sepsis Recent Fever Within 48 Hours Sepsis New/Unexplained Change in Mental Status Sepsis Action Taken by Nursing Pulse Rate 111 H Pulse Rate [Apical] 112 H 110 H Pulse Rate from SpO2 Sensor Pulse Rhythm Pulse Rhythm [Apical] Regular Respiratory Rate 30 H 30 H 36 H Respiratory Effort / Characteristics Short of Breath Spontaneous SOB on Exertion Respiratory Depth Normal Respiratory Pattern Rapid/Shallow Tachypnea Tachypnea Blood Pressure 173/95 H Blood Pressure [Left Arm] 155/85 H Blood Pressure [Right Arm] 157/80 H Blood Pressure Mean Blood Pressure Mean [Left Arm] 108 Blood Pressure Mean [Right Arm] 105 Blood Pressure Position [Left Arm] Lying Blood Pressure Position [Right Arm] Lying Pulse Oximetry 100 98 100 Oxygen Delivery Method Room Air Room Air Room Air 12/15/18 15:00 12/15/18 15:30 Temperature Temperature Source Sepsis Recent Fever Within 48 Hours Sepsis New/Unexplained Change in Mental Status Sepsis Action Taken by Nursing Pulse Rate 115 H 120 H Pulse Rate [Apical] Pulse Rate from SpO2 Sensor 116 H 120 H Pulse Rhythm Pulse Rhythm [Apical] Respiratory Rate 31 H 30 H Respiratory Effort / Characteristics Respiratory Depth Respiratory Pattern Blood Pressure 120/76 127/55 L Blood Pressure [Left Arm] Blood Pressure [Right Arm] Blood Pressure Mean 90 79 Blood Pressure Mean [Left Arm] Blood Pressure Mean [Right Arm] Blood Pressure Position [Left Arm] Blood Pressure Position [Right Arm] Pulse Oximetry 100 100 Oxygen Delivery Method Room Air GENERAL: Rolling around in bed, alert, tachypneic, unable to talk, holding chest and back EYE EXAM: normal conjunctiva. PERRL and EOM's grossly intact. OROPHARYNX: no exudate, no erythema, lips, buccal mucosa, and tongue normal and mucous membranes are dry NECK: supple, no nuchal rigidity, no adenopathy, non-tender LUNGS: Clear to auscultation. Normal chest wall mechanics HEART: tachycardic, no murmurs, S1 normal and S2 normal ABDOMEN: abdomen soft, acutely tender in the epigastric/RUQ, normo-active bowel, sounds, no masses, no rebound or guarding. BACK: Back is symmetrical on inspection and there is no deformity, no midline tenderness, no CVA tenderness. SKIN: no rashes and no bruising UPPER EXTREMITIES: upper extremities are grossly normal. LOWER EXTREMITIES: No pitting edema. NEURO EXAM: Normal sensorium, cranial nerves II-XII grossly intact, soft speech, no gross weakness of arms, no gross weakness of legs. Radial pulses are equal bilaterally. DP and pedal pulses are equal bilaterally. BED SIDE ULTRA SOUND: No pericardial effusion. Normal proximal aorta. No free fluid in the pelvis. Course ED COURSE: Vital signs were reviewed and showed hypertension and tachycardia. The patients medical record was reviewed The above diagnostic studies were performed and reviewed. ED treatments and interventions as stated above. 1014: The patient was evaluated in room A12A. A complete history and physical examination was performed. I performed a bedside ultrasound at this time. 1025: I called radiology at this time and told them to clear the table for the patient. 1026: I called the charge nurse to have radiology have his test be read first once it is done. 1027: I reevaluated the patient and he is getting an EKG at this time. 1032: I reevaluated the patient and he is going to CT at this time. 1044: I reviewed the imaging and CT at this time. There is no obvious dissection. 1047: I reevaluated the patient and he declines wanting anything more for pain. 1100: I discussed the patient's case with Dr. Jacques -Radiology. He states that the read for the abdomen and pelvis is next for the other radiologist. 1107: I discussed the patient's case with Dr. Bonilla- Radiology. He informed me of the results of his tests. 1111: Upon reevaluation, the patient is resting more comfortably. I discussed my findings with the patient and he understands and agrees with the treatment plan. Based on the patients age, coexisting illnesses, exam and lab findings the decision to treat as an inpatient was made. The patient remained stable while under my care. The patient will be evaluated for further management. 1113: I discussed the patient's case with Dr. Sage, who is a close friend of the patient. I updated him on his test results at this time. 1118: I paged the hospitalist at this time. 1120: [facility] notified through Dr. Sage and Dr. Sharif [facility] Hospitalist about the patient and will accept him for further management. 1127: Dr. Sage is currently updating and speaking to Dr. Perez [facility] Hospitalist. Consultations Consultation #1: I discussed the patient's case with Dr. Jacques -Radiology. He states that the read for the abdomen and pelvis is next for the other radiologist. Time: 11:00 Consultation #2: I discussed the patient's case with Dr. Bonilla- Radiology. He informed me of the results of his tests. Time: 11:07 Administered Medications Sodium Bicarbonate 150 meq/ (Dextrose) 1,150 mls @ 120 mls/hr IV .Q9H35M [facility] Stop: 12/15/18 21:14 Last Admin: 12/15/18 12:16 Dose: 120 mls/hr Documented by: [id number] Insulin Human Regular 250 (units/ Sodium Chloride) 250 mls @ 8.3 mls/hr IV .Q24H [facility]; Protocol Stop: 01/14/19 12:19 Last Titration: 12/15/18 16:13 Dose: 10 units/hr, 10 mls/hr Documented by: [id number] Cosigned by: [id number] Titration: 12/15/18 15:17 Dose: 8.3 units/hr, 8.3 mls/hr Documented by: [id number] Cosigned by: [id number] Titration: 12/15/18 14:07 Dose: 5.9 units/hr, 5.9 mls/hr Documented by: [id number] Cosigned by: [id number] Titration: 12/15/18 13:10 Dose: 4.2 units/hr, 4.2 mls/hr Documented by: [id number] Cosigned by: [id number] Admin: 12/15/18 12:23 Dose: 3 units/hr, 3 mls/hr Documented by: [id number] Cosigned by: [id number] Potassium Acetate 10 meq/ (Sodium Chloride) 105 mls @ 105 mls/hr IV Q1H PATSY Stop: 12/15/18 17:29 Last Admin: 12/15/18 15:32 Dose: 105 mls/hr Documented by: [id number] Insulin Aspart (Novolog Flexpen) 0 units SC PC PATSY Stop: 01/14/19 12:59 Last Admin: 12/15/18 14:18 Dose: Not Given Documented by: [id number] Cosigned by: [id number] Ioversol (Optiray 320 125ml) 119 ml IV ONCE PRN PRN Reason: Interaction Checking Stop: 12/19/18 10:35 Last Admin: 12/15/18 10:36 Dose: 119 ml Documented by: [id number] Miscellaneous (Pending 1/2nss+20meq Kcl Ivf) 1 ea N/A Q2H PATSY Stop: 01/14/19 12:56 Last Admin: 12/15/18 15:19 Dose: Not Given Documented by: [id number] Admin: 12/15/18 15:18 Dose: Not Given Documented by: [id number] Miscellaneous (Pending D5 1/2ns+20meq Kcl Ivf) 1 ea N/A Q2H PATSY Stop: 01/14/19 12:56 Last Admin: 12/15/18 15:19 Dose: Not Given Documented by: [id number] Admin: 12/15/18 15:18 Dose: Not Given Documented by: [id number] Discontinued Medications Sodium Chloride (Nss 1000ml) 1,000 mls @ 999 mls/hr IV .Q1H1M ONE Stop: 12/15/18 11:23 Last Infusion: 12/15/18 12:23 Dose: 0 mls/hr Documented by: [id number] Admin: 12/15/18 10:30 Dose: 999 mls/hr Documented by: [id number] Sodium Chloride (Nss 1000ml) 1,000 mls @ 999 mls/hr IV .Q1H1M ONE Stop: 12/15/18 11:49 Last Infusion: 12/15/18 14:41 Dose: 0 mls/hr Documented by: [id number] Admin: 12/15/18 13:17 Dose: 999 mls/hr Documented by: [id number] Sodium Chloride (Nss 1000ml) 1,000 mls @ 999 mls/hr IV .Q1H1M ONE Stop: 12/15/18 12:16 Last Infusion: 12/15/18 16:13 Dose: 0 mls/hr Documented by: [id number] Admin: 12/15/18 14:40 Dose: 999 mls/hr Documented by: [id number] Piperacillin Sod/Tazobactam Sod (Zosyn) 4.5 gm in 120 mls @ 240 mls/hr IV NOW ONE Stop: 12/15/18 11:45 Last Infusion: 12/15/18 12:58 Dose: 0 mls/hr Documented by: [id number] Admin: 12/15/18 12:15 Dose: 240 mls/hr Documented by: [id number] Vancomycin HCl 1,500 mg/ (Sodium Chloride) 530 mls @ 200 mls/hr IV NOW ONE Stop: 12/15/18 13:54 Last Infusion: 12/15/18 15:32 Dose: 0 mls/hr Documented by: [id number] Admin: 12/15/18 12:16 Dose: 200 mls/hr Documented by: [id number] Piperacillin Sod/Tazobactam (Sod 4.5 gm/ Dextrose) 120 mls @ 30 mls/hr IV Q8H STA Stop: 12/15/18 16:56 Last Admin: 12/15/18 14:42 Dose: Not Given Documented by: [id number] Insulin Aspart (Novolog Flexpen) 0 units SC [facility] PATSY Stop: 01/14/19 12:59 Last Admin: 12/15/18 13:20 Dose: Not Given Documented by: [id number] Cosigned by: [id number] Insulin Human Regular (Novolin R Bolus From Bag) 3 units IV 1220 ONE Stop: 12/15/18 12:21 Last Admin: 12/15/18 12:27 Dose: 3 units Documented by: [id number] Cosigned by: [id number] Midazolam HCl (Versed) 2 mg IV NOW STA Stop: 12/15/18 15:21 Last Admin: 12/15/18 15:33 Dose: 2 mg Documented by: [id number] Midazolam HCl (Versed) Confirm Administered Dose 2 mg .ROUTE .STK-MED ONE Stop: 12/15/18 15:25 Last Admin: 12/15/18 15:34 Dose: Not Given Documented by: [id number] [facility] (Insulin Protocol Dka Goal Range) 1 ea N/A ONE ONE Stop: 12/15/18 11:16 Last Admin: 12/15/18 13:17 Dose: 1 ea Documented by: [id number] [facility] (Insulin Protocol Severe Stress) 1 ea N/A ONE ONE Stop: 12/15/18 11:16 Last Admin: 12/15/18 14:19 Dose: Not Given Documented by: [id number] [facility] (Insulin Protocol Dka Goal Range) 1 ea N/A ONE ONE Stop: 12/15/18 12:58 Last Admin: 12/15/18 14:17 Dose: Not Given Documented by: [id number] [facility] (Insulin Protocol Moderate Stress Level) 1 ea N/A ONE ONE Stop: 12/15/18 12:58 Last Admin: 12/15/18 14:17 Dose: 1 ea Documented by: [id number] [facility] Information (Consult Glycemic Management Pharmacy) 1 ea N/A NOW STA Stop: 12/15/18 12:58 Last Admin: 12/15/18 14:40 Dose: 1 ea Documented by: [id number] Morphine Sulfate (Morphine Sulfate) Confirm Administered Dose 8 mg .ROUTE .STK- MED ONE Stop: 12/15/18 10:19 Last Admin: 12/15/18 10:17 Dose: 6 mg Documented by: [id number] Morphine Sulfate (Morphine Sulfate) 6 mg IV NOW STA Stop: 12/15/18 12:57 Last Admin: 12/15/18 13:01 Dose: Not Given Documented by: [id number] Ondansetron HCl (Zofran) Confirm Administered Dose 4 mg .ROUTE .STK-MED ONE Stop: 12/15/18 10:22 Last Admin: 12/15/18 10:23 Dose: 4 mg Documented by: [id number] Ondansetron HCl (Zofran) 4 mg IV NOW STA Stop: 12/15/18 10:25 Last Admin: 12/15/18 10:30 Dose: Not Given Documented by: [id number] Sodium Bicarbonate (Sodium Bicarbonate 8.4%) Confirm Administered Dose 100 meq .ROUTE .STK-MED ONE Stop: 12/15/18 14:34 Last Admin: 12/15/18 14:40 Dose: Not Given Documented by: [id number] Sodium Bicarbonate (Sodium Bicarbonate 8.4%) 100 meq IV NOW STA Stop: 12/15/18 14:36 Last Admin: 12/15/18 14:39 Dose: 100 meq Documented by: [id number] Medical Decision Making Differential Diagnosis Differential diagnosis includes etiologies such as sepsis, UTI, pneumonia, metabolic, electrolyte abnormalities, cardiac sources, intracerebral event, toxicologic, neurologic, as well as others were entertained. Medical Records Attestation: I reviewed the patient's medical records. Home Medications Current Medication List: was personally reviewed by me Laboratory Data Attestation: I reviewed the patient's lab results. Result diagrams: 12/15/18 10:25 12/15/18 13:03 Lab Results 12/15/18 12/15/18 12/15/18 Range/Units 10:12 10:15 10:25 WBC 26.26 H (4.8-10.8) K/uL RBC 4.91 (4.7-6.1) M/uL Hgb 16.7 (14.0-18.0) g/dL POC Hgb (14.0-18.0) g/dl Hct 48.3 (42-52) % POC Hct (42-52) % MCV 98.4 (80-100) fL MCH 34.0 (25-34) pg MCHC 34.6 (32-36) g/dL RDW Std Deviation 44.9 (36.4-46.3) fL RDW Coeff of Mart 12.5 (11.5-14.5) % Plt Count 299 (130-400) K/uL MPV 11.6 H (7.4-10.4) fL Immature Gran % (Auto) 1.4 % Neut % (Auto) 78.5 % Lymph % (Auto) 15.0 % Tift % (Auto) 4.3 % Eos % (Auto) 0.3 % Baso % (Auto) 0.5 % Immature Gran # (Auto) 0.38 H (0.00-0.02) K/uL Neut # (Auto) 20.63 H (1.4-6.5) K/uL Lymph # (Auto) 3.93 H (1.2-3.4) K/uL Tift # (Auto) 1.13 H (0.11-0.59) K/uL Eos # (Auto) 0.07 (0-0.5) K/uL Baso # (Auto) 0.12 (0-0.2) K/uL PT (9.0-12.0) Seconds INR (0.9-1.1) ABG pH (7.35-7.45) ABG pCO2 (35-46) mmHg ABG pO2 (80-95) mm/Hg ABG HCO3 (19-24) mmol/L ABG O2 Saturation (90-95) % ABG Base Excess (-9-1.8) mEq/L [place] Test (Pos) VBG pH (7.36-7.41) VBG pCO2 (38-50) mmHg VBG pO2 mmHg VBG HCO3 mmol/L VBG O2 Saturation % VBG Base Excess mEq/L Barometric Pressure mm/Hg Oxygen Given POC Sodium (135-144) mEq/L Sodium (136-145) mmol/L POC Potassium (3.3-5.0) mEq/L Potassium (3.5-5.1) mmol/L POC Chloride (101-112) mEq/L Chloride (98-107) mmol/L Carbon Dioxide (21-32) mmol/L POC Total CO2 (24-31) mEq/l Anion Gap (3-11) POC Anion Gap (16-25) mmol/L POC BUN (7-18) mg/dl BUN (7-18) mg/dl Creatinine (0.6-1.4) mg/dl POC Creatinine (0.6-1.3) mg/dl Est Cr Clr Drug Dosing ml/min Est GFR ( Amer) Est GFR (Non-Af Amer) BUN/Creatinine Ratio (10-20) Glucose (70-99) mg/dl POC Glucose 367 H* (70-99) POC Glucose (other) (70-99) mg/dl POC Lactic Acid Jaspal (0.90-1.70) mmol/L Calcium (8.5-10.1) mg/dl POC Ioniz Calcium Vivi (1.12-1.32) mmol/l Phosphorus (2.5-4.9) mg/dl Magnesium (1.8-2.4) mg/dl Total Bilirubin (0.2-1) mg/dl AST (15-37) U/L ALT (12-78) U/L Alkaline Phosphatase (45-117) U/L Troponin I (0-0.045) ng/ml Total Protein (6.4-8.2) gm/dl Albumin (3.4-5.0) gm/dl Globulin (2.5-4.0) gm/dl Albumin/Globulin Ratio (0.9-2) Lipase (73-393) U/L Beta-Hydroxybutyric Acd (0.2-2.81) mg/dl Specimen Hemolysis Nasal Screen MRSA (PCR) (Negative) Salicylates (2.8-20) mg/dl Urine Opiates Screen Neg (Neg) Ur Methadone, Qual Neg (Neg) Acetaminophen (10-30) ug/ml Urine Barbiturates Neg (Neg) Ur Phencyclidine (PCP) Neg (Neg) U Amphetamin/Meth Scrn Neg (Neg) MDMA (Ecstasy) Screen Neg (Neg) U Benzodiazepines Scrn Neg (Neg) Ur Cocaine Metabolite Neg (Neg) U Marijuana (THC) Screen Neg (Neg) Ethyl Alcohol mg/dL (0-3) mg/dl 12/15/18 12/15/18 12/15/18 Range/Units 10:25 10:25 10:25 WBC (4.8-10.8) K/uL RBC (4.7-6.1) M/uL Hgb (14.0-18.0) g/dL POC Hgb (14.0-18.0) g/dl Hct (42-52) % POC Hct (42-52) % MCV (80-100) fL MCH (25-34) pg MCHC (32-36) g/dL RDW Std Deviation (36.4-46.3) fL RDW Coeff of Mart (11.5-14.5) % Plt Count (130-400) K/uL MPV (7.4-10.4) fL Immature Gran % (Auto) % Neut % (Auto) % Lymph % (Auto) % Tift % (Auto) % Eos % (Auto) % Baso % (Auto) % Immature Gran # (Auto) (0.00-0.02) K/uL Neut # (Auto) (1.4-6.5) K/uL Lymph # (Auto) (1.2-3.4) K/uL Tift # (Auto) (0.11-0.59) K/uL Eos # (Auto) (0-0.5) K/uL Baso # (Auto) (0-0.2) K/uL PT 11.2 (9.0-12.0) Seconds INR 1.1 (0.9-1.1) ABG pH (7.35-7.45) ABG pCO2 (35-46) mmHg ABG pO2 (80-95) mm/Hg ABG HCO3 (19-24) mmol/L ABG O2 Saturation (90-95) % ABG Base Excess (-9-1.8) mEq/L [place] Test (Pos) VBG pH (7.36-7.41) VBG pCO2 (38-50) mmHg VBG pO2 mmHg VBG HCO3 mmol/L VBG O2 Saturation % VBG Base Excess mEq/L Barometric Pressure mm/Hg Oxygen Given POC Sodium (135-144) mEq/L Sodium 137 (136-145) mmol/L POC Potassium (3.3-5.0) mEq/L Potassium 5.0 (3.5-5.1) mmol/L POC Chloride (101-112) mEq/L Chloride 106 (98-107) mmol/L Carbon Dioxide 5 L* (21-32) mmol/L POC Total CO2 (24-31) mEq/l Anion Gap 26.0 H (3-11) POC Anion Gap (16-25) mmol/L POC BUN (7-18) mg/dl BUN 19 H (7-18) mg/dl Creatinine 1.26 (0.6-1.4) mg/dl POC Creatinine (0.6-1.3) mg/dl Est Cr Clr Drug Dosing 65.2 ml/min Est GFR ( Amer) 71.9 Est GFR (Non-Af Amer) 62.0 BUN/Creatinine Ratio 15.3 (10-20) Glucose 384 H* (70-99) mg/dl POC Glucose (70-99) POC Glucose (other) (70-99) mg/dl POC Lactic Acid Jaspal (0.90-1.70) mmol/L Calcium 8.2 L (8.5-10.1) mg/dl POC Ioniz Calcium Vivi (1.12-1.32) mmol/l Phosphorus (2.5-4.9) mg/dl Magnesium (1.8-2.4) mg/dl Total Bilirubin 0.5 (0.2-1) mg/dl AST 25 (15-37) U/L ALT 43 (12-78) U/L Alkaline Phosphatase 153 H (45-117) U/L Troponin I < 0.015 (0-0.045) ng/ml Total Protein 7.5 (6.4-8.2) gm/dl Albumin 4.0 (3.4-5.0) gm/dl Globulin 3.5 (2.5-4.0) gm/dl Albumin/Globulin Ratio 1.1 (0.9-2) Lipase 55 L (73-393) U/L Beta-Hydroxybutyric Acd (0.2-2.81) mg/dl Specimen Hemolysis Nasal Screen MRSA (PCR) (Negative) Salicylates 5.5 (2.8-20) mg/dl Urine Opiates Screen (Neg) Ur Methadone, Qual (Neg) Acetaminophen < 2 L (10-30) ug/ml Urine Barbiturates (Neg) Ur Phencyclidine (PCP) (Neg) U Amphetamin/Meth Scrn (Neg) MDMA (Ecstasy) Screen (Neg) U Benzodiazepines Scrn (Neg) Ur Cocaine Metabolite (Neg) U Marijuana (THC) Screen (Neg) Ethyl Alcohol mg/dL (0-3) mg/dl 12/15/18 12/15/18 12/15/18 Range/Units 10:29 10:58 11:05 WBC (4.8-10.8) K/uL RBC (4.7-6.1) M/uL Hgb (14.0-18.0) g/dL POC Hgb 17.3 (14.0-18.0) g/dl Hct (42-52) % POC Hct 51 (42-52) % MCV (80-100) fL MCH (25-34) pg MCHC (32-36) g/dL RDW Std Deviation (36.4-46.3) fL RDW Coeff of Mart (11.5-14.5) % Plt Count (130-400) K/uL MPV (7.4-10.4) fL Immature Gran % (Auto) % Neut % (Auto) % Lymph % (Auto) % Tift % (Auto) % Eos % (Auto) % Baso % (Auto) % Immature Gran # (Auto) (0.00-0.02) K/uL Neut # (Auto) (1.4-6.5) K/uL Lymph # (Auto) (1.2-3.4) K/uL Tift # (Auto) (0.11-0.59) K/uL Eos # (Auto) (0-0.5) K/uL Baso # (Auto) (0-0.2) K/uL PT (9.0-12.0) Seconds INR (0.9-1.1) ABG pH (7.35-7.45) ABG pCO2 (35-46) mmHg ABG pO2 (80-95) mm/Hg ABG HCO3 (19-24) mmol/L ABG O2 Saturation (90-95) % ABG Base Excess (-9-1.8) mEq/L [place] Test (Pos) VBG pH (7.36-7.41) VBG pCO2 (38-50) mmHg VBG pO2 mmHg VBG HCO3 mmol/L VBG O2 Saturation % VBG Base Excess mEq/L Barometric Pressure mm/Hg Oxygen Given POC Sodium 139 (135-144) mEq/L Sodium (136-145) mmol/L POC Potassium 4.8 (3.3-5.0) mEq/L Potassium (3.5-5.1) mmol/L POC Chloride 114 H (101-112) mEq/L Chloride (98-107) mmol/L Carbon Dioxide (21-32) mmol/L POC Total CO2 6 L* (24-31) mEq/l Anion Gap (3-11) POC Anion Gap 26.0 H (16-25) mmol/L POC BUN 20 H (7-18) mg/dl BUN (7-18) mg/dl Creatinine (0.6-1.4) mg/dl POC Creatinine 0.7 (0.6-1.3) mg/dl Est Cr Clr Drug Dosing ml/min Est GFR ( Amer) Est GFR (Non-Af Amer) BUN/Creatinine Ratio (10-20) Glucose (70-99) mg/dl POC Glucose (70-99) POC Glucose (other) 393 H* (70-99) mg/dl POC Lactic Acid Jaspal 4.46 H (0.90-1.70) mmol/L Calcium (8.5-10.1) mg/dl POC Ioniz Calcium Vivi 1.18 (1.12-1.32) mmol/l Phosphorus (2.5-4.9) mg/dl Magnesium (1.8-2.4) mg/dl Total Bilirubin (0.2-1) mg/dl AST (15-37) U/L ALT (12-78) U/L Alkaline Phosphatase (45-117) U/L Troponin I (0-0.045) ng/ml Total Protein (6.4-8.2) gm/dl Albumin (3.4-5.0) gm/dl Globulin (2.5-4.0) gm/dl Albumin/Globulin Ratio (0.9-2) Lipase (73-393) U/L Beta-Hydroxybutyric Acd 85.71 H (0.2-2.81) mg/dl Specimen Hemolysis Nasal Screen MRSA (PCR) (Negative) Salicylates (2.8-20) mg/dl Urine Opiates Screen (Neg) Ur Methadone, Qual (Neg) Acetaminophen (10-30) ug/ml Urine Barbiturates (Neg) Ur Phencyclidine (PCP) (Neg) U Amphetamin/Meth Scrn (Neg) MDMA (Ecstasy) Screen (Neg) U Benzodiazepines Scrn (Neg) Ur Cocaine Metabolite (Neg) U Marijuana (THC) Screen (Neg) Ethyl Alcohol mg/dL (0-3) mg/dl 12/15/18 12/15/18 12/15/18 Range/Units 11:26 11:59 12:05 WBC (4.8-10.8) K/uL RBC (4.7-6.1) M/uL Hgb (14.0-18.0) g/dL POC Hgb (14.0-18.0) g/dl Hct (42-52) % POC Hct (42-52) % MCV (80-100) fL MCH (25-34) pg MCHC (32-36) g/dL RDW Std Deviation (36.4-46.3) fL RDW Coeff of Mart (11.5-14.5) % Plt Count (130-400) K/uL MPV (7.4-10.4) fL Immature Gran % (Auto) % Neut % (Auto) % Lymph % (Auto) % Tift % (Auto) % Eos % (Auto) % Baso % (Auto) % Immature Gran # (Auto) (0.00-0.02) K/uL Neut # (Auto) (1.4-6.5) K/uL Lymph # (Auto) (1.2-3.4) K/uL Tift # (Auto) (0.11-0.59) K/uL Eos # (Auto) (0-0.5) K/uL Baso # (Auto) (0-0.2) K/uL PT (9.0-12.0) Seconds INR (0.9-1.1) ABG pH (7.35-7.45) ABG pCO2 14 L (35-46) mmHg ABG pO2 203 H (80-95) mm/Hg ABG HCO3 3 L (19-24) mmol/L ABG O2 Saturation 99.2 H (90-95) % ABG Base Excess -28.9 L (-9-1.8) mEq/L [place] Test Pos (Pos) VBG pH 6.90 L (7.36-7.41) VBG pCO2 22 L (38-50) mmHg VBG pO2 78 mmHg VBG HCO3 4 mmol/L VBG O2 Saturation 90.4 % VBG Base Excess -28.0 mEq/L Barometric Pressure 737.7 737.6 mm/Hg Oxygen Given ROOM AIR POC Sodium (135-144) mEq/L Sodium (136-145) mmol/L POC Potassium (3.3-5.0) mEq/L Potassium (3.5-5.1) mmol/L POC Chloride (101-112) mEq/L Chloride (98-107) mmol/L Carbon Dioxide (21-32) mmol/L POC Total CO2 (24-31) mEq/l Anion Gap (3-11) POC Anion Gap (16-25) mmol/L POC BUN (7-18) mg/dl BUN (7-18) mg/dl Creatinine (0.6-1.4) mg/dl POC Creatinine (0.6-1.3) mg/dl Est Cr Clr Drug Dosing ml/min Est GFR ( Amer) Est GFR (Non-Af Amer) BUN/Creatinine Ratio (10-20) Glucose (70-99) mg/dl POC Glucose 450 H* (70-99) POC Glucose (other) (70-99) mg/dl POC Lactic Acid Jaspal (0.90-1.70) mmol/L Calcium (8.5-10.1) mg/dl POC Ioniz Calcium Vivi (1.12-1.32) mmol/l Phosphorus (2.5-4.9) mg/dl Magnesium (1.8-2.4) mg/dl Total Bilirubin (0.2-1) mg/dl AST (15-37) U/L ALT (12-78) U/L Alkaline Phosphatase (45-117) U/L Troponin I (0-0.045) ng/ml Total Protein (6.4-8.2) gm/dl Albumin (3.4-5.0) gm/dl Globulin (2.5-4.0) gm/dl Albumin/Globulin Ratio (0.9-2) Lipase (73-393) U/L Beta-Hydroxybutyric Acd (0.2-2.81) mg/dl Specimen Hemolysis Nasal Screen MRSA (PCR) (Negative) Salicylates (2.8-20) mg/dl Urine Opiates Screen (Neg) Ur Methadone, Qual (Neg) Acetaminophen (10-30) ug/ml Urine Barbiturates (Neg) Ur Phencyclidine (PCP) (Neg) U Amphetamin/Meth Scrn (Neg) MDMA (Ecstasy) Screen (Neg) U Benzodiazepines Scrn (Neg) Ur Cocaine Metabolite (Neg) U Marijuana (THC) Screen (Neg) Ethyl Alcohol mg/dL (0-3) mg/dl 12/15/18 12/15/18 12/15/18 Range/Units 13:03 13:17 13:17 WBC (4.8-10.8) K/uL RBC (4.7-6.1) M/uL Hgb (14.0-18.0) g/dL POC Hgb (14.0-18.0) g/dl Hct (42-52) % POC Hct (42-52) % MCV (80-100) fL MCH (25-34) pg MCHC (32-36) g/dL RDW Std Deviation (36.4-46.3) fL RDW Coeff of Mart (11.5-14.5) % Plt Count (130-400) K/uL MPV (7.4-10.4) fL Immature Gran % (Auto) % Neut % (Auto) % Lymph % (Auto) % Tift % (Auto) % Eos % (Auto) % Baso % (Auto) % Immature Gran # (Auto) (0.00-0.02) K/uL Neut # (Auto) (1.4-6.5) K/uL Lymph # (Auto) (1.2-3.4) K/uL Tift # (Auto) (0.11-0.59) K/uL Eos # (Auto) (0-0.5) K/uL Baso # (Auto) (0-0.2) K/uL PT (9.0-12.0) Seconds INR (0.9-1.1) ABG pH (7.35-7.45) ABG pCO2 (35-46) mmHg ABG pO2 (80-95) mm/Hg ABG HCO3 (19-24) mmol/L ABG O2 Saturation (90-95) % ABG Base Excess (-9-1.8) mEq/L Dakotah Test (Pos) VBG pH 6.85 L (7.36-7.41) VBG pCO2 35 L (38-50) mmHg VBG pO2 41 mmHg VBG HCO3 6 mmol/L VBG O2 Saturation 67.0 % VBG Base Excess -27.6 mEq/L Barometric Pressure 736.5 mm/Hg Oxygen Given POC Sodium (135-144) mEq/L Sodium 136 (136-145) mmol/L POC Potassium (3.3-5.0) mEq/L Potassium 4.5 (3.5-5.1) mmol/L POC Chloride (101-112) mEq/L Chloride 105 (98-107) mmol/L Carbon Dioxide < 5 L* (21-32) mmol/L POC Total CO2 (24-31) mEq/l Anion Gap 27.0 H (3-11) POC Anion Gap (16-25) mmol/L POC BUN (7-18) mg/dl BUN 21 H (7-18) mg/dl Creatinine 1.41 H (0.6-1.4) mg/dl POC Creatinine (0.6-1.3) mg/dl Est Cr Clr Drug Dosing 54.0 ml/min Est GFR ( Amer) 62.7 Est GFR (Non-Af Amer) 54.1 BUN/Creatinine Ratio 15.2 (10-20) Glucose 471 H* (70-99) mg/dl POC Glucose (70-99) POC Glucose (other) (70-99) mg/dl POC Lactic Acid Jaspal (0.90-1.70) mmol/L Calcium 7.9 L (8.5-10.1) mg/dl POC Ioniz Calcium Vivi (1.12-1.32) mmol/l Phosphorus 7.2 H (2.5-4.9) mg/dl Magnesium 2.6 H (1.8-2.4) mg/dl Total Bilirubin (0.2-1) mg/dl AST (15-37) U/L ALT (12-78) U/L Alkaline Phosphatase (45-117) U/L Troponin I (0-0.045) ng/ml Total Protein (6.4-8.2) gm/dl Albumin (3.4-5.0) gm/dl Globulin (2.5-4.0) gm/dl Albumin/Globulin Ratio (0.9-2) Lipase (73-393) U/L Beta-Hydroxybutyric Acd (0.2-2.81) mg/dl Specimen Hemolysis Nasal Screen MRSA (PCR) (Negative) Salicylates (2.8-20) mg/dl Urine Opiates Screen (Neg) Ur Methadone, Qual (Neg) Acetaminophen (10-30) ug/ml Urine Barbiturates (Neg) Ur Phencyclidine (PCP) (Neg) U Amphetamin/Meth Scrn (Neg) MDMA (Ecstasy) Screen (Neg) U Benzodiazepines Scrn (Neg) Ur Cocaine Metabolite (Neg) U Marijuana (THC) Screen (Neg) Ethyl Alcohol mg/dL < 3.0 (0-3) mg/dl 12/15/18 Range/Units 13:20 WBC (4.8-10.8) K/uL RBC (4.7-6.1) M/uL Hgb (14.0-18.0) g/dL POC Hgb (14.0-18.0) g/dl Hct (42-52) % POC Hct (42-52) % MCV (80-100) fL MCH (25-34) pg MCHC (32-36) g/dL RDW Std Deviation (36.4-46.3) fL RDW Coeff of Mart (11.5-14.5) % Plt Count (130-400) K/uL MPV (7.4-10.4) fL Immature Gran % (Auto) % Neut % (Auto) % Lymph % (Auto) % Tift % (Auto) % Eos % (Auto) % Baso % (Auto) % Immature Gran # (Auto) (0.00-0.02) K/uL Neut # (Auto) (1.4-6.5) K/uL Lymph # (Auto) (1.2-3.4) K/uL Tift # (Auto) (0.11-0.59) K/uL Eos # (Auto) (0-0.5) K/uL Baso # (Auto) (0-0.2) K/uL PT (9.0-12.0) Seconds INR (0.9-1.1) ABG pH (7.35-7.45) ABG pCO2 (35-46) mmHg ABG pO2 (80-95) mm/Hg ABG HCO3 (19-24) mmol/L ABG O2 Saturation (90-95) % ABG Base Excess (-9-1.8) mEq/L Dakotah Test (Pos) VBG pH (7.36-7.41) VBG pCO2 (38-50) mmHg VBG pO2 mmHg VBG HCO3 mmol/L VBG O2 Saturation % VBG Base Excess mEq/L Barometric Pressure mm/Hg Oxygen Given POC Sodium (135-144) mEq/L Sodium (136-145) mmol/L POC Potassium (3.3-5.0) mEq/L Potassium (3.5-5.1) mmol/L POC Chloride (101-112) mEq/L Chloride (98-107) mmol/L Carbon Dioxide (21-32) mmol/L POC Total CO2 (24-31) mEq/l Anion Gap (3-11) POC Anion Gap (16-25) mmol/L POC BUN (7-18) mg/dl BUN (7-18) mg/dl Creatinine (0.6-1.4) mg/dl POC Creatinine (0.6-1.3) mg/dl Est Cr Clr Drug Dosing ml/min Est GFR ( Amer) Est GFR (Non-Af Amer) BUN/Creatinine Ratio (10-20) Glucose (70-99) mg/dl POC Glucose (70-99) POC Glucose (other) (70-99) mg/dl POC Lactic Acid Jaspal (0.90-1.70) mmol/L Calcium (8.5-10.1) mg/dl POC Ioniz Calcium Vivi (1.12-1.32) mmol/l Phosphorus (2.5-4.9) mg/dl Magnesium (1.8-2.4) mg/dl Total Bilirubin (0.2-1) mg/dl AST (15-37) U/L ALT (12-78) U/L Alkaline Phosphatase (45-117) U/L Troponin I (0-0.045) ng/ml Total Protein (6.4-8.2) gm/dl Albumin (3.4-5.0) gm/dl Globulin (2.5-4.0) gm/dl Albumin/Globulin Ratio (0.9-2) Lipase (73-393) U/L Beta-Hydroxybutyric Acd (0.2-2.81) mg/dl Specimen Hemolysis Nasal Screen MRSA (PCR) Negative (Negative) Salicylates (2.8-20) mg/dl Urine Opiates Screen (Neg) Ur Methadone, Qual (Neg) Acetaminophen (10-30) ug/ml Urine Barbiturates (Neg) Ur Phencyclidine (PCP) (Neg) U Amphetamin/Meth Scrn (Neg) MDMA (Ecstasy) Screen (Neg) U Benzodiazepines Scrn (Neg) Ur Cocaine Metabolite (Neg) U Marijuana (THC) Screen (Neg) Ethyl Alcohol mg/dL (0-3) mg/dl Imaging Data Radiologist's Impression: Radiology results as stated below per my review and the radiologist's interpretation: XR chest 1V portable CLINICAL HISTORY: Chest pain. COMPARISON STUDY: No previous studies for comparison. FINDINGS: Lung volumes are normal. There is no pneumothorax or pleural effusion. There is no consolidation or evidence for pulmonary edema. Cardiac size is normal. Mediastinal contours are normal. IMPRESSION: No acute cardiopulmonary findings. Electronically signed by: Tony Bonilla M.D. 12/15/2018 10:[address] OF THE CHEST WITH IV CONTRAST CLINICAL HISTORY: back pain and chest pain COMPARISON STUDY: No previous studies for comparison. TECHNIQUE: Following the IV administration of 119 mL of Optiray-320, CT of the thorax was performed from the thoracic inlet to the lung bases. Images are reviewed in the axial, sagittal, and coronal planes. IV contrast was administered without complication. A dose lowering technique was utilized adhering to the principles of ALARA. CT DOSE: 590.38 mGy.cm FINDINGS: Thyroid: Imaged portions of the thyroid gland are normal in appearance. Thoracic aorta: Noncontrast images reveal no evidence of acute aortic hematoma. Postcontrast images reveal no evidence of thoracic aortic dissection. There is no evidence for aneurysm. Pulmonary vasculature: There is no definite pulmonary embolism however the study is limited due to contrast timing and significant respiratory motion artifact. HEART: There is no pericardial effusion. Lungs and pleural spaces: There is significant respiratory motion artifact. There is no pneumothorax. There is no focal pulmonary consolidation. There are no pleural effusions. Mediastinum: There is no evidence of pathologic lymphadenopathy Ramonita: There is no evidence of pathologic hilar adenopathy Axilla: There is no evidence of pathologic axillary lymphadenopathy Upper abdomen: Partially visualized upper abdominal viscera is within normal limits. Skeletal structures: There are no lytic or blastic osseous lesions. IMPRESSION: 1. Study compromised due to respiratory motion artifact 2. No evidence of thoracic aortic aneurysm or dissection 3. No acute intrathoracic findings. Electronically signed by: Williams Jacques M.D. 12/15/2018 10:[address] ANGIOGRAM OF THE ABDOMEN AND PELVIS CLINICAL HISTORY: Atypical chest pain. Back pain. COMPARISON STUDY: Abdominal CT dated 03/20/2009. TECHNIQUE: Following the IV administration of 119 cc of Optiray 320, CT angiogram of the abdomen and pelvis was performed from the lung bases the proximal femora. Images are reviewed in the axial, sagittal, and coronal planes. 3-D MIPS images are created and assessed. IV contrast was administered without complication. A dose lowering technique was utilized adhering to the principles of ALARA. The examination is degraded by motion artifact. FINDINGS: Lower chest: The heart is enlarged and without pericardial effusion. The lung bases are clear. There is a small hiatal hernia. Liver: The contrast-enhanced liver is normal in size, contour, and attenuation. There is no intrahepatic or ductal dilatation. Gallbladder: Unremarkable. Spleen: Normal in size and attenuation, noting heterogeneous arterial phase enhancement. Pancreas: Moderately atrophic and grossly unremarkable. Adrenal glands: Unremarkable. Kidneys: The contrast enhanced kidneys are normal in size and without hydronephrosis. The kidneys enhance symmetrically. Abdominal aorta and iliac arteries: The abdominal aorta is normal in course and caliber noting mild atherosclerotic calcification. The iliac arteries are widely patent bilaterally. There is no aneurysm or dissection identified. Major branches of the abdominal aorta: The celiac trunk, superior mesenteric, and inferior mesenteric arteries are widely patent. Hepatic arterial anatomy is conventional. The splenic artery is patent. Single bilateral renal arteries are patent. Bowel: There is moderate colonic fecal retention. No bowel obstruction is seen. The appendix is normal as visualized. Peritoneum: There is no intraperitoneal free air or abdominal ascites. There is a fat-containing umbilical hernia. There is induration within the simultaneous fat of the ventral abdominal wall. Lymphadenopathy: None. Pelvic viscera: The prostate gland is enlarged and heterogeneous, measuring 5.5 cm in transverse diameter. There is median lobe hypertrophy. The bladder is dist ended. The bladder wall is thickened and trabeculated indicating chronic outlet obstruction. Skeletal structures: No destructive bony lesions are seen. IMPRESSION: 1. Motion compromised examination. 2. There is no aneurysm or dissection identified involving the abdominal aorta. 3. Unremarkable CT angiogram of the major branches of the abdominal aorta. 4. Cardiomegaly. 5. No acute infectious or inflammatory findings are identified in the abdomen or pelvis. 6. Moderate constipation. 7. Prostatomegaly with evidence of chronic bladder outlet obstruction. 8. Foci of induration are seen throughout the subcutaneous fat of the ventral abdominal wall, possibly related to subcutaneous injections. Clinical correlation will be required. Electronically signed by: Navjot Barriga M.D. 12/15/2018 11:13 AM ECG Data Attestation: I personally reviewed and interpreted this ECG as follows: Indication: back/shoulder pain Rate (beats per minute): 101 Rhythm: normal sinus Findings: + nonspecific-ST abn (lateral leads) and + Q waves (septal) Comparison ECG Date: no prior available Additional Comments: REPEAT EKG: Sinus tachycardia at a rate of 111. Normal axis. Poor baseline in inferior leads. Nonspecific ST changes in the lateral leads. Blood Pressure Blood Pressure Findings: Elevated blood pressure Blood Pressure Disposition: further management by hospitalist DWAIN Narrative Patient is a 58-year-old male who presents the ER in severe distress via EMS. He is rolling around on the bed unable to give a history. She was obtained by the who was initially very agitated as it took so long for someone to get into the room to evaluate her . She notes it started as back pain migrated up through to his chest. She repeatedly asked for a certified emergency vehicle technician to be present at bedside and initially thought I was 1. Explained that as an ER physician. IVs were established blood work was obtained. I formed performed a bedside ultrasound due to the crushing back and chest pain was concern for diss ection with his pressures in the 200s and heart rate in the low 120s. His respiratory rate was in the 40s. BSG per EMS was 400. I-STAT were obtained he was immediately taken to the CT. CT dissection study was negative. Once this resulted blood work was coming back as well and showed that he was in DKA with a severe metabolic acidosis and a lactic acidosis of 4. VBG showed a pH of 6.9. Patient was placed on insulin drip and given insulin bolus. He was given over 2 L IV fluids. He was placed on a bicarb drip as well. Dr. Mandel office was called by the and evaluate the patient at bedside and requested an ABG along with bicarb drip. Patient was given IV morphine and Zofran. He was updated bedside. He was discussed with the hospitalist. He was admitted for further workup of his DKA with metabolic acidosis and significant leukocytosis. He was covered with broad-spectrum antibiotics. Of note EKG did show sinus tachycardia with some mild nonspecific ST wave changes in the lateral leads which I do favor secondary to the stress and the acidosis. Impression & Plan DKA (diabetic ketoacidoses), Metabolic acidosis, Lactic acid acidosis Critical Care Time I have personally spent greater than 75 minutes of critical care time in the direct management of this patient. This includes bedside care, interpretation of diagnostic studies, and testing, discussion with consultants, patient, and family members, and other required patient management activities. This 75 minutes is in excess of all separately billable procedures. Critical Care Time: Yes Total Critical Care Time: 75 Discharge Plan Visit Data *Final* Discharge Date/Time: 12/15/18 12:29 Chief Complaint: Shoulder Pain ED Provider: Darian Thomas Discharge Problem: DKA (diabetic ketoacidoses), Metabolic acidosis, Lactic acid acidosis Patient Disposition: Admitted As Inpatient Discharge Instructions Interventions: ED Discharge Assessment Last Done: 12/15/18 12:29 Discharge Problem: DKA (diabetic ketoacidoses) Qualifiers: Diabetes mellitus type: type 1 Diabetes mellitus complication detail: without coma Qualified Code(s): E10.10 - Type 1 diabetes mellitus with ketoacidosis without coma The scribe's documentation has been prepared under my direction and personally reviewed by me in its entirety. I confirm that the note above accurately reflects all work, treatment, procedures, and medical decision making performed by me.
--- NOTE | 2018-12-15 17:03 | Procedure Note ---
Procedure Note Date of Service December 15, 2018 Procedure date: Noted above Procedure: Central venous access Pre-procedure indication: Need for aggressive electrolyte repletion, profound metabolic acidosis Post-procedure Diagnosis: same as above Prior to Procedure: Informed Consent: The risks, benefits, indications, potential complications, and alternatives were explained to the patient's , patient has acute encephalopathy metabolic in origin and informed consent obtained. Attending Staff: Tonya Blackwell DO Resident/APC: Cait HUGGINS Skin Prep: Chlorhexidine Anesthesia: 4 mL 1% lidocaine without epinephrine The identity of the patient was confirmed and a bedside time out was performed. Description of Procedure: After sterile prep and sterile drape utilizing standard sterile technique the superficial skin of the right internal jugular area was anesthetized. The target vessel was identified and entered with an 18-gauge needle. Dark venous blood return was noted. A guidewire was inserted through the needle and into the vessel. The needle was withdrawn and a skin harman was made. A tissue dilator was advanced via Seldinger technique and removed. A triple lumen catheter was inserted via Seldinger technique and the guidewire removed. All ports floyd and flushed easily. A Biopatch was placed, and the catheter was secured via silk suture at the proximal point and commercial device at the distal point. A sterile dressing was then applied. Complications: None Estimated blood loss: Trace Patient tolerated the procedure well. Procedure Date: Noted Above Procedure: Procedural Ultrasound Indication: Central venous access Attending: Tonya Blackwell DO Resident/Physician [employer] Programmer: Cait HUGGINS Artery visualized: Yes Vein visualized: Yes Compressible Vein: Yes Vein patent: Yes Guidewire or Short Catheter seen in vein prior to dilation: Yes Line confirmed in Vein with ultrasound: Yes Lung Sliding on side of attempt (if applicable): NA If no lung sliding or not obtained has CXR been ordered: Yes Impression: Successful central venous access placement Images obtained are saved for permanent record
[2018-12-15 17:09] LABS: Influenza A virus by PCR Neg for Influ A (Neg); Influenza B virus by PCR Neg for Influ B (Neg)
--- NOTE | 2018-12-15 17:26 | XRay Report ---
XR chest 1V portable HISTORY: Central line placement. COMPARISON: Chest 12/15/2018. FINDINGS: Interval placement of a right jugular central venous catheter which terminates at the expec misha location of the SVC. Study is slightly rotated. The heart is top normal in size. No pleural effus ions. No pneumothorax. No evidence for pulmonary edema. No focal lung consolidations to suggest pneum onia. IMPRESSION: The right jugular central venous catheter terminates at the expected location of the SVC. No pneumoth orax. Electronically signed by: Umair Stark M.D. 12/15/2018 5:24 PM
[2018-12-15] MEDS ORDERED: POTASSIUM ACETATE 20 MEQ in 0.9 % SODIUM CHLORIDE 100 ML IV ONE (17:30)
[2018-12-15 17:56] LABS: Base Excess VBG -15.4 mEq/L; Oxygen Saturation VBG 80.1 %; pH VBG 7.26 (7.36-7.41)
[2018-12-15] MEDS ORDERED: cefTRIAXone SODIUM 1,000 MG in DEXTROSE 5% 50 ML IV SCH (18:00)
[2018-12-15 18:30] LABS: Blood Urea Nitrogen 23 mg/dl (7-18); Calcium 6.9 mg/dl (8.5-10.1); Carbon Dioxide 9 mmol/L (21-32); Chloride 114 mmol/L (98-107); Creatinine Clr Calc Pharmacy 56.4 ml/min; Est GFR (African American) 66.1; Est GFR (Non-African American) 57.1; Glucose 394 mg/dl (70-99); Magnesium 2.1 mg/dl (1.8-2.4); Phosphorus 1.4 mg/dl (2.5-4.9); Potassium 3.8 mmol/L (3.5-5.1); Sodium 144 mmol/L (136-145); Troponin I < 0.015 ng/ml (0-0.045)
[2018-12-15] MEDS ORDERED: POTASSIUM PHOS 3 MMOL/1 ML INFUSION IV STA ×2 (18:33→22:13)
[2018-12-15] MEDS ORDERED: POTASSIUM PHOSPHATE 24 MMOL in SODIUM CHLORIDE 0.9% 500 ML IV ONE (19:00)
[2018-12-15] MEDS ORDERED: METOCLOPRAMIDE HCL INJ 5 MG/ML 2 ML VIAL IV ONE (19:08)
[2018-12-15] MEDS ORDERED: SODIUM CHLOR 0.45% + 20MEQ KCL 20 MEQ/1,000 ML BAG IV SCH (20:00)
[2018-12-15] MEDS: HEPARIN SOD 5,000 UNIT/0.5 ML VIAL SQ SCH (20:11)
[2018-12-15 21:21] LABS: Base Excess VBG -7.5 mEq/L; Oxygen Saturation VBG 80.9 %; pH VBG 7.38 (7.36-7.41)
[2018-12-15 21:38] LABS: BUN Creatinine Ratio 15.7 (10-20); Blood Urea Nitrogen 22 mg/dl (7-18); Calcium 6.7 mg/dl (8.5-10.1); Carbon Dioxide 17 mmol/L (21-32); Chloride 117 mmol/L (98-107); Creatinine Clr Calc Pharmacy 54.8 ml/min; Est GFR (African American) 63.8; Est GFR (Non-African American) 55.1; Glucose 239 mg/dl (70-99); Magnesium 1.7 mg/dl (1.8-2.4); Potassium 3.3 mmol/L (3.5-5.1); Sodium 146 mmol/L (136-145)
[2018-12-15 21:49] LABS: Troponin I < 0.015 ng/ml (0-0.045)
[2018-12-15] MEDS ORDERED: POTASSIUM PHOSPHATE 15 MMOL in SODIUM CHLORIDE 0.9% 250 ML IV ONE (22:30)
[2018-12-15] MEDS: D5W AND 1/2NSS + 20MEQ KCL 20 MEQ/1,000 ML BAG IV SCH (22:34)
[2018-12-16 01:17] LABS: Base Excess VBG -3.2 mEq/L; Oxygen Saturation VBG 81.9 %; pH VBG 7.43 (7.36-7.41)
[2018-12-16 01:30] LABS: Calcium 6.7 mg/dl (8.5-10.1); Creatinine Clr Calc Pharmacy 55.2 ml/min; Est GFR (African American) 64.4; Est GFR (Non-African American) 55.6; Magnesium 1.6 mg/dl (1.8-2.4); Potassium 3.1 mmol/L (3.5-5.1)
[2018-12-16] MEDS ORDERED: POTASSIUM PHOS 3 MMOL/1 ML INFUSION IV STA (02:57)
[2018-12-16] MEDS ORDERED: MAGNESIUM SULFATE / D5W 1 GM/100 ML BAG IV ONE (03:15)
[2018-12-16] MEDS: POTASSIUM CHLORIDE / WTR 20 MEQ/100 ML PLCT IV SCH ×2 (03:26→04:57)
[2018-12-16] MEDS ORDERED: POTASSIUM PHOSPHATE 24 MMOL in SODIUM CHLORIDE 0.9% 500 ML IV ONE (03:45)
[2018-12-16] MEDS: D5W AND 1/2NSS + 20MEQ KCL 20 MEQ/1,000 ML BAG IV SCH ×3 (04:56→18:09)
[2018-12-16] MEDS: INSULIN REGULAR 250 UNITS in SODIUM CHLORIDE 0.9% 247.5 ML IV SCH (04:56)
[2018-12-16 07:18] LABS: Phosphorus 0.9 mg/dl (2.5-4.9)
[2018-12-16 07:45] LABS: BUN Creatinine Ratio 16.9 (10-20); Calcium 6.8 mg/dl (8.5-10.1); Creatinine Clr Calc Pharmacy 76.9 ml/min; Est GFR (African American) 96.2; Magnesium 1.9 mg/dl (1.8-2.4); Phosphorus 2.7 mg/dl (2.5-4.9); Potassium 4.2 mmol/L (3.5-5.1)
--- NOTE | 2018-12-16 07:54 | Critical Care Progress Note ---
Date of Service December 16, 2018 Assessment & Plan (1) DKA (diabetic ketoacidoses): Reason Critically Ill: 58-year-old male with past medical history of DM type I, who presents to the ICU with acute metabolic encephalopathy secondary to DKA. Neuro - [facility] ICU: Positive Acute metabolic encephalopathy/DKA/metabolic acidosis -Blood glucose 390 in the ED, pH 6.90 -A1c 16.9, will need ict educator -Continue insulin drip, will convert to Lantus/NovoLog when appropriate -Routine BMPs -Every hour blood glucose Cardiac - Hypertensioncontinue losartan Respiratory - Tachypnearesolved GI - Abdominal tendernessCT abdomen negative for acute process, likely symptomatic from DKA - RENAL/LYTES - Routine BMPs, replete electrolytes as indicated - Foleystrict I's and O's Suspected BPHCT abdomen showed prostatomegaly and chronic hyperinflation of bladder, may need follow-up outpatient ENDO - DM type Imanaged as stated above, will transition to insulin injection when appropriate, will need consult for ict educator during this admission HEME - LeukocytosisWBC 27 on admission, likely secondary to DKA/metabolic acidosis, will rule out infectious process - routine CBCs, trend ID - Vancomycin and Zosyn narrowed to Rocephin Initial blood cultures pending Pro-calcitonin elevated, will repeat blood cultures Chest x-ray negative UA negative for infection Influenza negative LINES/IV ACCESS - Peripheral IV x2, Florence DVT PROPHYLAXIS - SCDs, subcu heparin (2) DVT prophylaxis: (3) Metabolic acidosis: (4) Encephalopathy acute: Supervising Physician Co-Signing Physician Notes I have personally evaluated and examined this patient. I agree with assessment and plan of Cait HUGGINS. Significant improvement in metabolic derangements. Mental status is also improving. We are discontinuing antibiotics at this time, there does not appear to be a urinary nor pulmonary source of infection. His lipase is elevated but the CT scan obtained yesterday while noncontrast still appears to be largely unremarkable. There is still complaining of back pain and while I would entertain the thought of discitis with the acute kidney injury and metabolic derangements obtaining additional studies which are nonspecific would be of minimal benefit therefore I have ordered a second set of blood cultures to further evaluate for discitis. I do believe discitis would be rather unlikely, he does not have significant risk factors of IV drug use, alcoholism, the renal failure is presumptive acute, he does have diabetes and appears to be significantly out of control so this will need to be followed. I have discussed the case with the hospitalist service. He is stable for downgrade out of the ICU. Subjective 58-year-old male with past medical history diabetes type 1, who presented to the ED via EMS with altered mental status. Patient returned from a trip to [place] and had been complaining of back pain. states that the patient had episode of emesis x3 yesterday morning and she later found the patient thrashing and breathing rapidly in bed. At this point she called 911. Of note, patient had stated he had not been feeling well for the past couple of weeks. She also states that the patient had been poorly managing his diabetes for the past 2 years.In the ED, blood glucose was 390 on admission and pH was 6.90. He was pl aced on insulin drip and bicarb drips. This morning mentation has significantly improved although patient is still confused. Gap closed and bicarb improved as well. Unable to wean from insulin drip at this point. Patient remains hemodynamically stable and able for downgrade to telemetry status. Patient denies chest pain, palpitations, dyspnea, headache, neck pain. Patient still complains of back pain and mild abdominal pain. Review of Systems All systems reviewed & are unremarkable except as noted in HPI & below Physical Exam Vital Signs (Past 24 Hours): Last Vital Signs Temp 36.5 C 12/16/18 04:00 Pulse 99 H 12/16/18 06:00 Resp 15 12/16/18 06:00 BP 121/68 12/16/18 06:00 Pulse Ox 99 12/16/18 06:00 Constitutional: + altered mental status and comfortable Eyes: PERRL, conjunctivae normal, anicteric sclerae Neck: trachea midline, no thyromegaly Respiratory: normal respiratory effort, lungs clear to auscultation Cardiovascular: RRR, no murmur, no edema Heart Sounds: normal S1 and normal S2 Gastrointestinal (Abdomen): Soft flat, soft, mildly tender with palpation, normoactive bowel sounds in all 4 quadrants Skin: no rashes, warm and dry Neurologic: Confused, PERRLA, symmetrical movement Genitourinary: Florence, adequate urine output (1) DKA (diabetic ketoacidoses) Diabetes mellitus complication detail: without coma Diabetes mellitus type: type 1 Qualified Code(s): E10.10 - Type 1 diabetes mellitus with ketoacidosis without coma
[2018-12-16] MEDS ORDERED: ACETAMINOPHEN 65 ML IV PRN (08:00)
[2018-12-16] MEDS: HEPARIN SOD 5,000 UNIT/0.5 ML VIAL SQ SCH ×2 (08:38→20:58)
[2018-12-16] MEDS: INSULIN ASPART 100 UNITS/ML 3 ML PEN SC SCH ×5 (08:56→21:01)
[2018-12-16 09:28] LABS: BUN Creatinine Ratio 15.5 (10-20); Calcium 6.5 mg/dl (8.5-10.1); Creatinine Clr Calc Pharmacy 77.7 ml/min; Est GFR (African American) 97.4; Est GFR (Non-African American) 84.1; Magnesium 1.9 mg/dl (1.8-2.4); Phosphorus 2.7 mg/dl (2.5-4.9); Potassium 3.5 mmol/L (3.5-5.1)
[2018-12-16 10:06] LABS: Estimated Average Glucose > 438 mg/dl
[2018-12-16 10:15] LABS: Hemoglobin A1C > 16.9 % (4.5-5.6)
[2018-12-16 10:50] LABS: Basophils # (auto) 0.02 K/uL (0-0.2); Basophils % (auto) 0.1 %; Eosinophils # (auto) 0.02 K/uL (0-0.5); Eosinophils % (auto) 0.1 %; Hematocrit (blood only) 36.1 % (42-52); Hemoglobin 12.9 g/dL (14.0-18.0); Immature Granulocytes # (auto) 0.04 K/uL (0.00-0.02); Immature Granulocytes % (auto) 0.3 %; Lymphocytes # (auto) 0.87 K/uL (1.2-3.4); Lymphocytes % (auto) 6.1 %; Mean Corpuscular Hgb Conc 35.7 g/dL (32-36); Mean Corpuscular Volume 90.5 fL (80-100); Mean Platelet Volume 10.9 fL (7.4-10.4); Monocytes # (auto) 1.26 K/uL (0.11-0.59); Monocytes % (auto) 8.8 %; Neutrophils # (auto) 12.03 K/uL (1.4-6.5); Neutrophils % (auto) 84.6 %; Platelet Count 177 K/uL (130-400); RDW Coefficient of Variation 12.4 % (11.5-14.5); RDW Standard Deviation 41.4 fL (36.4-46.3); Red Blood Count 3.99 M/uL (4.7-6.1); White Blood Count 14.24 K/uL (4.8-10.8)
[2018-12-16 11:24] LABS: Alanine Aminotransferase 32 U/L (12-78); Albumin Level 2.5 gm/dl (3.4-5.0); Alkaline Phosphatase 74 U/L (45-117); Aspartate Aminotransferase 26 U/L (15-37); Bilirubin Direct < 0.1 mg/dl (0-0.2); Bilirubin,Total 0.3 mg/dl (0.2-1); Total Protein 5.4 gm/dl (6.4-8.2)
[2018-12-16] MEDS ORDERED: INSULIN GLARGINE SOLOSTAR 100 UNITS/ML 3 ML PEN SC ONE (13:00)
--- NOTE | 2018-12-16 14:02 | Pharmacy Report ---
Pharmacy Glycemic Short Note 2 - Date of Service December 16, 2018 - Glycemic Short BSG Results (Last 24 hours): 12/15/18 12/15/18 12/15/18 13:03 13:03 14:05 Glucose 471 H* POC Glucose 438 H* 466 H* 12/15/18 12/15/18 12/15/18 15:15 16:09 17:05 Glucose POC Glucose 467 H* 421 H* 393 H* 12/15/18 12/15/18 12/15/18 17:40 18:07 19:20 Glucose 394 H* POC Glucose 391 H* 323 H 12/15/18 12/15/18 12/15/18 20:05 21:03 21:09 Glucose 239 H POC Glucose 284 H 258 H 12/15/18 12/15/18 12/16/18 22:17 23:00 00:06 Glucose POC Glucose 179 H 185 H 178 H 12/16/18 12/16/18 12/16/18 01:02 01:05 02:07 Glucose 181 H POC Glucose 172 H 173 H 12/16/18 12/16/18 12/16/18 04:06 05:01 05:25 Glucose POC Glucose 131 H 104 H 145 H 12/16/18 12/16/18 12/16/18 05:41 06:08 06:55 Glucose 180 H POC Glucose 140 H 135 H 12/16/18 12/16/18 12/16/18 07:33 08:47 08:48 Glucose 200 H POC Glucose 175 H 196 H 12/16/18 12/16/18 12/16/18 09:42 11:48 12:48 Glucose POC Glucose 171 H 133 H 106 H 12/16/18 12/16/18 12/16/18 13:03 13:18 13:32 Glucose POC Glucose 94 97 88 OUTPATIENT ANTIDIABETIC REGIMEN: * Lantus 5-10 units qAM * ?Humulin -- unsure if patient uses * HbA1c: >16.9% ASSESSMENT: * Mr Sanchez is a 58yo Type 1 diabetic male admitted with severe DKA. * According to the patient and his , he has not checked his BSGs for years. reports weight loss in the past year. * Labs on admission: * Glucose: 450 mg/dL, anion gap 27, bicarb <5, BHBA 85.7, urine ketones 4+, pH 6.82 * Patient was admitted to the ICU and started on an insulin infusion. * Presently, labs have resolved. * Glucose: 133, 88, anion gap 11, bicarb 17, pH 7.43 * Patient is ordered a diet. IVF are infusing with dextrose. * Pt was transferred from ICU to tele this morning. Lantus dose was ordered to aid in transition off of IV insulin infusion PLAN FOR INPATIENT GLYCEMIC CONTROL: * Continue insulin gtt until BSGs are stable x2 AND insulin gtt rate is less than 2 units/hr * Patient's BSGs have fallen below 100mg/dL, so anticipate that insulin gtt may not be required again after Lantus administration. * Basal insulin * Lantus 15 units SQ x1 dose * Will re-assess and dose Lantus again in the morning * Bolus insulin -- begin when insulin gtt is discontinued * NovoLog per scale q4h for now -- to provide continuous coverage in the setting of significant DKA and extremely elevated A1c * Goal Range: Low 140 mg/dL - High 180 mg/dL * Correction Factor: 45 mg/dL/unit * Nutritional / Prandial insulin per carb ratio of 1 unit per 20 grams CHO consumed PLAN FOR DISCHARGE: * Will re-assess as admission progresses. Certainly, patient requires adjustments to outpatient regimen, even if those changes are simply improved patient compliance. * Patient's A1c (>16.9%) corresponds to an estimated average glucose of >430 mg/dL. * Patient will require immediate f/u with outpatient providers after discharge to work toward optimizing A1c and improving diabetic care. * Consider consulting CDE.
[2018-12-16 18:43] LABS: BUN Creatinine Ratio 11.8 (10-20); Creatinine Clr Calc Pharmacy 76.2 ml/min; Est GFR (African American) 95.1; Potassium 3.4 mmol/L (3.5-5.1)
[2018-12-16 18:55] LABS: Cortisol Random 17.05 mcg/dl; Vitamin D, 25 Hydrox 15.1 ng/ml (30-100)
[2018-12-16] MEDS: DICLOFENAC SOD 1% GEL 100 GM TUBE EXT SCH ×2 (19:18→20:59)
[2018-12-16] MEDS: CLOTRIMAZOLE 10 MG TROCHE BUCCAL SCH ×2 (19:18→23:16)
--- NOTE | 2018-12-16 20:41 | Hospitalist Progress Note ---
Date of Service December 16, 2018 Assessment & Plan (1) DKA (diabetic ketoacidoses): resolved insulin drip just about off pharmacy consult & management appreciated patient uncertain if he wants to change humulin-R to newer agent (novolog,etc) we discussed his markedly high a1c and I highly advised referral to tin flipper he expressed a lot of reluctancy in doing such but may be willing to see Trini Dejan stop serial labs cut fluid rate - he is eating although he had very high WBC count at admission I see no evidence of infectious process and agree w/ d/c of antibiotics (2) Uncontrolled type 1 diabetes mellitus: see above in "DKA" uncertain how much etoh he drinks but certainly could be playing a role in his T1DM in addition to noncompliance (3) Encephalopathy acute: 2nd to DKA resolving (4) Cold intolerance: check TSH, r/o hypothyroidism check random cortisol (5) Mood disorder: would benefit from psych eval and counseling at minimum check TSH,b12,vit D level,etc (6) Back pain: musculoskeletal CT chest w/o pathology may have been related to carrying a heavy piece of luggage recently voltaren gel qid heat (7) Candidiasis of mouth and esophagus: clotrimazole 5x/day x 7-10 days 2nd to severe hyperglycemia (8) DVT prophylaxis: heparin TID repeat lipase in am --- doubt of clinical significance likely reactive central line d/c today updated at bedside Subjective pt overall feeling better he reports not having felt well for some time admits to not checking blood sugars at home admits to not following with any physician for his DM has had T1DM since childhood takes 10 units Lantus takes humulin-R 20 units breakfast, 10 units lunch, 20 units with dinner 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 has had oral/tongue pain also with cold intolerance for 1-2 years main complaint during the visit is that of upper back pain near the left scapula worsened by movement Constitutional: + anorexia; no fever and no chills Ear, Nose, Mouth, Throat: no sore throat and no dysphagia Respiratory: no cough and no dyspnea Cardiovascular: no chest pain Gastrointestinal: no abdominal pain, no nausea, no vomiting and no change in stools Genitourinary (Male): + urinary frequency and + nocturia Neurologic: no numbness Psychiatric: + depression and + anxiety Physical Exam Vital Signs (Past 24 Hours): Last Vital Signs Temp 37.1 C 12/16/18 19:12 Pulse 92 H 12/16/18 19:12 Resp 17 12/16/18 19:12 BP 131/71 12/16/18 19:12 Pulse Ox 100 12/16/18 19:12 Constitutional: + ill appearing and + thin; no acute distress ENMT: Mouth: + oral mucosal abnormality (thrush plaques buccal mucosa) Neck: trachea midline, no thyromegaly Respiratory: normal respiratory effort, lungs clear to auscultation Cardiovascular: Rate/Rhythm: regular rate and regular rhythm Heart Sounds: normal S1 and normal S2; no murmur Vessels: posterior tibial pulses present and dorsalis pedis pulses present; no JVD Extremities: + pedal edema Gastrointestinal (Abdomen): normal bowel sounds, soft, nontender, no hepatosplenomegaly Musculoskeletal: tender to touch over left inferior scapular border; no t- spine or l-spine pain Skin: no rashes, warm and dry Neurologic: moves all extremities; no focal motor deficits Psychiatric: Affect: + depressed affect Lymphatic: no cervical lymphadenopathy (1) DKA (diabetic ketoacidoses) Diabetes mellitus complication detail: without coma Diabetes mellitus type: type 1 Qualified Code(s): E10.10 - Type 1 diabetes mellitus with ketoacidosis without coma (2) Uncontrolled type 1 diabetes mellitus Glycemic state: with hyperglycemia Qualified Code(s): E10.65 - Type 1 diabetes mellitus with hyperglycemia (3) Back pain Back pain location: thoracic back pain Chronicity: acute Back pain laterality: left Qualified Code(s): M54.6 - Pain in thoracic spine
[2018-12-16] MEDS: POTASSIUM CHLORIDE 20 MEQ TABCR PO SCH (20:58)
[2018-12-17 07:13] LABS: Hematocrit (blood only) 34.9 % (42-52); Hemoglobin 12.2 g/dL (14.0-18.0); Mean Corpuscular Volume 91.6 fL (80-100); Platelet Count 129 K/uL (130-400); RDW Coefficient of Variation 13.2 % (11.5-14.5); RDW Standard Deviation 43.9 fL (36.4-46.3); Red Blood Count 3.81 M/uL (4.7-6.1); White Blood Count 6.92 K/uL (4.8-10.8)
[2018-12-17 07:43] LABS: BUN Creatinine Ratio 10.3 (10-20); Calcium 7.3 mg/dl (8.5-10.1); Creatinine Clr Calc Pharmacy 102.9 ml/min; Magnesium 1.9 mg/dl (1.8-2.4); Potassium 3.9 mmol/L (3.5-5.1)
[2018-12-17 07:49] LABS: Phosphorus 2.1 mg/dl (2.5-4.9)
[2018-12-17] MEDS: INSULIN ASPART 100 UNITS/ML 3 ML PEN SC SCH ×2 (08:03→11:58)
[2018-12-17] MEDS: CLOTRIMAZOLE 10 MG TROCHE BUCCAL SCH ×2 (08:03→10:03)
[2018-12-17] MEDS: HEPARIN SOD 5,000 UNIT/0.5 ML VIAL SQ SCH (08:04)
[2018-12-17] MEDS: DICLOFENAC SOD 1% GEL 100 GM TUBE EXT SCH ×2 (08:10→12:02)
[2018-12-17] MEDS: POTASSIUM CHLORIDE 20 MEQ TABCR PO SCH (08:11)
[2018-12-17] MEDS ORDERED: INSULIN GLARGINE SOLOSTAR 100 UNITS/ML 3 ML PEN SC STA (08:13)
[2018-12-17] MEDS ORDERED: SODIUM PHOSPHATE 3 MMOL/1 ML INFUSION IV STA (08:45)
[2018-12-17] MEDS ORDERED: MAGNESIUM SULFATE / D5W 1 GM/100 ML BAG IV ONE (09:15)
[2018-12-17] MEDS ORDERED: SODIUM PHOSPHATE 15 MMOL in SODIUM CHLORIDE 0.9% 250 ML IV ONE (10:00)
--- NOTE | 2018-12-17 13:20 | Pharmacy Report ---
Pharmacy Glycemic Short Note 2 - Date of Service December 17, 2018 - Glycemic Short BSG Results (Last 24 hours): 12/16/18 12/16/18 12/16/18 13:03 13:18 13:32 Glucose POC Glucose 94 97 88 12/16/18 12/16/18 12/16/18 13:50 14:06 14:21 Glucose POC Glucose 89 90 107 H 12/16/18 12/16/18 12/16/18 14:39 14:56 15:41 Glucose POC Glucose 98 118 H 134 H 12/16/18 12/16/18 12/16/18 16:06 16:40 17:44 Glucose POC Glucose 118 H 110 H 172 H 12/16/18 12/16/18 12/16/18 17:51 18:35 20:54 Glucose 198 H POC Glucose 206 H 233 H 12/17/18 12/17/18 12/17/18 06:43 07:21 10:58 Glucose 260 H POC Glucose 258 H 317 H OUTPATIENT ANTIDIABETIC REGIMEN: * Lantus 5-10 units qAM * ?Humulin -- unsure if patient uses * HbA1c: >16.9% ASSESSMENT: * BSGs since being transitioned off the insulin infusion have been hyperglycemic, 155-890-234mx/dL. 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 With an A1C >17% his average daily BSG is >430mg/dL. * Given this elevated A1C, I hesitate to correct his sugars too quickly. Pronounced corrections in A1C have been linked to retinal detachment. * I did speak with the hospitalist, BSGs bt 200-~280mg/dL are acceptable. 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 If he responds poorly to the 13units given this AM, we will reassess tomorrow. * It doesn't sound like he is interested in counting carbs. Ergo, will recommend a set dose of novolog/regular insulin: 4u TIDM * Prompt f/u with endo
--- NOTE | 2018-12-17 13:31 | Discharge Summary ---
Date of Service December 17, 2018 Admission HPI Per Admitting Provider 58 y/o M who was brought to the ED by EMS after he was found to be SOB and ill appearing at home. tells me that pt had been in [place] for a friend's birthday until yesterday. He was complaining of back pain yesterday, which he attributed to carrying heavy bags. was up this AM preparing for work around 5a and pt stated his back hurt more at that time. Then around 6am pt had 3 episodes of emesis and started to have SOB. also noted a diffuse rash over his chest, abd, back that she had not seen prior. At one point her asked her to rub an area under his L axilla, but he did not expressly state he was having chest pain. Pt was thrashing around in bed and having difficulty breathing, so she called 911. states that pt is a Type I DM pt. She is uncertain of his insulin regimen at home but know that he takes humalin and lantus. She states that he has stopped taking his BS for the last several years. She states he was recently started on HTN medication in the last year. She states he has lost a lot of weight in the last year and she has expressed concern to him about this. She denies known hx of prostate issues, but states that on recent car trips they have had to stop almost every hour for him to urinate. states that he has never had an episode of DKA to her knowledge. "He is never sick." She states he has been struggling recently as he has been unemployed for the last year. Pt states he is still having back pain. He also states he is very thirsty. Denies headache, vision changes, nausea, abd pain. Pt denies fever, SOB, chest pain, c/d, LE pain or swelling. Principal Diagnosis DKA Discharge Exam Constitutional WD/WN, vitals as above Eyes PERRL, conjunctivae normal, anicteric sclerae ENMT external ear and nose normal, oropharynx normal Neck trachea midline, no thyromegaly Respiratory normal respiratory effort, lungs clear to auscultation Cardiovascular RRR, no murmur, no edema Gastrointestinal (Abdomen) normal bowel sounds, soft, nontender, no hepatosplenomegaly Musculoskeletal Extremities: extremities normal to inspection; no cyanosis and no clubbing Skin no rashes, warm and dry Neurologic moves all extremities and awake; no focal motor deficits Psychiatric A+Ox3, euthymic affect Discharge Data Allergies Allergy/AdvReac Type Severity Reaction Status Date / Time No Known Allergies Allergy Unverified 12/15/18 11:31 Consultations Director Of Revenue Procedures Performed RIJ placement Ordered Studies 12/15/18 10:23 CT angio chest dissec wo/w con Stat 12/15/18 10:24 CT angio abdomen pelvis w con Stat 12/15/18 16:25 US point of care ultrasound Stat CXR x 2 Hospital Course (1) DKA (diabetic ketoacidoses): Resolved, severe, pH 6.8 on presentation Treated with insulin drip and copious IVFs-now titrated off insulin gtt and all IVFs--> and on Basal/bolus insulin, glucose in the 200s [facility] is ok given severely chronically elevated glucose with HgbA1C>17% pharmacy consult & management appreciated although he had very high WBC count at admission I see no evidence of infectious process and have since d/cd all antibiotics Plan to discharge to home on Lantus 13 units and Novolog 4 units with meals--> will certainly need to be titrated upward, but want to go slowly as Becky points out risk of retinal detachment with correcting glucose too quickly in the setting of severe chronically elevated glucose. -Pt will follow up with PCP for up-titration on Thursday after discharge (2) Uncontrolled type 1 diabetes mellitus: see above in "DKA" (3) Encephalopathy acute: Secondary to DKA Resolved (4) Cold intolerance: TSH and random cortisol checked and both normal (5) Mood disorder: Suspected--> would benefit from psych eval and counseling at minimum as outpt TSH, B12 normal Vit D low (6) Back pain: musculoskeletal in nature with TTP on examination, improving on day of discharge CT chest w/o pathology may have been related to carrying a heavy piece of luggage recently Continue voltaren gel qid and heat (7) Candidiasis of mouth and esophagus: clotrimazole 5x/day x 7-10 days Secondary to severe hyperglycemia (8) Enlarged prostate: Seen on CT abd/pel with evidence in bladder of chronic bladder outlet obstruction. -f/u with PCP and possible Urology referral as outpt (9) Thrombocytopenia: Plts mildly decreased today from yesterday at 129, however received copious fluids and likely hemodilutional. HIT risk score 3, no antibody testing needed Repeat CBC later on day of discharge stable from the morning, no evidence of bleeding Stable for dc to home and have PCP check CBC as outpt (10) Hypophosphatemia: replaced (11) Vitamin D deficiency: Vit D level low here at 15 -recommended to pt to buy OTC Vit D3 1000 units daily (12) Elevated lipase: mildly elevated at 600 during admission, no evidence of pancreatitis on CT, came down on own, nonspecific finding (13) DVT prophylaxis: heparin TID, then held when platelets dropped Dispo-much improved, stable for dc to home today Total Time Total Time Spent Total Time Spent (In Minutes): >30 min Total Time Includes: Examination of the Patient, Discharge Planning and Medication Reconciliation Discharge Plan Discharge Items Patient Disposition: Home - Self-Care Reason For Visit: DKA Discharge Diagnosis: DKA Condition: Fair Discharge Goals: Decrease discomfort, Improve disease control and Therapeutic intervention Activity: As commented below Lifting: Gradually increase as tolerated Bathing: No limitations Exercise/Sports: Gradually increase as tolerated Non-emergency contact: Primary Care Provider Call non-emergency contact if: you have any medication questions, your symptoms worsen, your pain is not controlled, your pain is worsening, your pain is unusual for you and your pain is concerning for you Follow-up/Referrals: Mike Sage MD [Primary Care Provider] - (Follow up on Thursday12/20/18 as planned) Diet: Carb Count or DM1 Addtl Provider Instructions: You were admitted with DKA and treated with IV fluids and insulin which resulted in improvement in your condition. You should continue Lantus 13 units once daily in the morning, but increase to 15 units daily if your fasting glucose in the AM is >200. You should take the Novolog 4 units with each meal. Both of these insulins will likely need to be titrated upward, but we don't want to do this too quickly given how high your blood glucose has been lately. Please follow up with Dr. Sage as scheduled on Thursday. Prescriptions: New Novolog Flexpen U-100 Insulin 100 unit/mL Insulin Pen 4 units SC TIDM Qty: 15 RF: 0 Lantus Solostar U-100 Insulin 100 unit/mL (3 mL) insulin pen 13 units SQ DAILY Qty: 15 RF: 0 clotrimazole 10 mg Joanne 10 mg buccal [id number] Qty: 45 RF: 0 Continued losartan 25 mg tablet 25 mg PO DAILY RF: 0 Discontinued Lantus U-100 Insulin 100 unit/mL solution 10 units subcut QAM RF: 0 Stand-Alone Forms: [facility], [facility] Discharge Orders: Discharge Order (Routine); Ordered 12/17/18 Ordered By: Haydee Lehman Admission Data Admit Date/Time: 12/15/18 12:01 Attending Provider: Haydee Lehman Admit Provider: Emily Borrego Primary Care Provider: Mike Sage Other Providers: Hermes Blackwell Service: Telemetry Other Interventions: Discharge Summary Assessment (RN) Last Done: 12/17/18 16:29 Pending Studies at Discharge: No DC Date/Time DO NOT enter until pt leaves facility: 12/17/18 16:50
[2018-12-17 16:19] LABS: Hematocrit (blood only) 37.3 % (42-52); Hemoglobin 12.8 g/dL (14.0-18.0); Mean Corpuscular Hgb Conc 34.3 g/dL (32-36); Mean Platelet Volume 10.8 fL (7.4-10.4); Platelet Count 130 K/uL (130-400); RDW Coefficient of Variation 13.1 % (11.5-14.5); RDW Standard Deviation 44.9 fL (36.4-46.3); Red Blood Count 3.97 M/uL (4.7-6.1); White Blood Count 5.77 K/uL (4.8-10.8)
[2018-12-18] MEDS ORDERED: POTASSIUM CHLORIDE 20 MEQ TABCR PO SCH (09:00)
== END 2018-12-17 16:50 | disposition home or self-care (01) | DRG 637 ==
LOC: ED 09:57 → 1E 12:01 → SUATTDRO 12:01 → 1E 12:29 → 2S 12-16 11:04
DX: F10.10 Alcohol abuse, uncomplicated; F41.8 Other specified anxiety disorders; E10.10 Type 1 diabetes mellitus with ketoacidosis without coma; Z79.899 Other long term (current) drug therapy; R35.0 Frequency of micturition; F17.200 Nicotine dependence, unspecified, uncomplicated; I10 Essential (primary) hypertension; R35.1 Nocturia; F39 Unspecified mood [affective] disorder; Z79.4 Long term (current) use of insulin; B37.0 Candidal stomatitis; G93.41 Metabolic encephalopathy; Z91.19 Patient's noncompliance with other medical treatment and regimen; R21 Rash and other nonspecific skin eruption

== ENCOUNTER 2019-04-16 09:47 | Inpatient (IN) ==
[2019-04-16] MEDS ORDERED: ONDANSETRON INJ 2 MG/ML 2 ML VIAL IV STA (10:15)
[2019-04-16] MEDS ORDERED: SODIUM CHLORIDE 0.9% 1000ML 1,000 ML IV SCH (10:15)
[2019-04-16] MEDS ORDERED: SODIUM CHLORIDE 0.9% 500 ML IV SCH (10:15)
[2019-04-16] MEDS ORDERED: FAMOTIDINE 20MG/5ML IV PUSH IV STA (10:24)
[2019-04-16 10:25] LABS: Basophils # (auto) 0.02 K/uL (0-0.2); Basophils % (auto) 0.4 %; Eosinophils # (auto) 0.08 K/uL (0-0.5); Eosinophils % (auto) 1.5 %; Hematocrit (blood only) 38.9 % (42-52); Hemoglobin 14.5 g/dL (14.0-18.0); Immature Granulocytes # (auto) 0.01 K/uL (0.00-0.02); Immature Granulocytes % (auto) 0.2 %; Lymphocytes # (auto) 1.37 K/uL (1.2-3.4); Lymphocytes % (auto) 25.6 %; Mean Corpuscular Hgb Conc 37.3 g/dL (32-36); Mean Corpuscular Volume 85.5 fL (80-100); Monocytes # (auto) 0.66 K/uL (0.11-0.59); Monocytes % (auto) 12.3 %; Neutrophils # (auto) 3.21 K/uL (1.4-6.5); Platelet Count 247 K/uL (130-400); RDW Coefficient of Variation 11.9 % (11.5-14.5); RDW Standard Deviation 36.8 fL (36.4-46.3); Red Blood Count 4.55 M/uL (4.7-6.1); White Blood Count 5.35 K/uL (4.8-10.8)
[2019-04-16 10:27] LABS: iSTAT Creatinine 0.8 mg/dl (0.6-1.3); iSTAT Hemoglobin 13.9 g/dl (14.0-18.0); iSTAT Ionized Calcium 1.21 mmol/l (1.12-1.32); iSTAT Potassium 4.5 mEq/L (3.3-5.0)
[2019-04-16 10:33] LABS: Alanine Aminotransferase 28 U/L (12-78); Albumin Level 3.9 gm/dl (3.4-5.0); Aspartate Aminotransferase 12 U/L (15-37); Blood Urea Nitrogen 11 mg/dl (7-18); Calcium 9.9 mg/dl (8.5-10.1); Carbon Dioxide 26 mmol/L (21-32); Chloride 98 mmol/L (98-107); Est GFR (African American) 95.1; Glucose 169 mg/dl (70-99); Magnesium 2.5 mg/dl (1.8-2.4); Potassium 4.3 mmol/L (3.5-5.1); Sodium 132 mmol/L (136-145)
--- NOTE | 2019-04-16 10:36 | XRay Report ---
XR chest 1V portable CLINICAL HISTORY: 58 years-old Male presenting with back pain, abd pain. TECHNIQUE: Portable upright AP view of the chest was obtained. COMPARISON: 03/30/2019. FINDINGS: Atherosclerosis of the aortic arch. Cardiac silhouette top normal in size. No focal opacity. No large effusion or pneumothorax. Osseous structures normal. Upper abdomen normal. IMPRESSION: 1. No acute cardiopulmonary disease. Electronically signed by: Edu Burk M.D. 04/16/2019 10:34 AM
[2019-04-16] MEDS: HYDROmorphone INJ 0.5 MG/0.5 ML SYR IV PRN ×6 (10:39→22:38)
[2019-04-16 10:44] LABS: Albumin Globulin Ratio 1.2 (0.9-2); Alkaline Phosphatase 51 U/L (45-117); Bilirubin,Total 0.7 mg/dl (0.2-1); Globulin 3.2 gm/dl (2.5-4.0); Total Protein 7.1 gm/dl (6.4-8.2); Troponin I < 0.015 ng/ml (0-0.045)
[2019-04-16 11:06] LABS: Acetaminophen < 2 ug/ml (10-30); Salicylate < 1.7 mg/dl (2.8-20)
[2019-04-16 11:59] LABS: Appearance Urine Clear (Clear); Bilirubin Urine Negative (Negative); Blood Urine Negative (Negative); Color Urine Yellow; Glucose Urine UA Negative (Negative); Ketones Urine Negative (Negative); Leukocyte Esterase Urine Negative (Negative); Nitrite Urine Negative (Negative); Protein Urine Negative (Negative); Specific Gravity Urine 1.011 (1.000-1.030); Urobilinogen Urine Negative (Negative); pH Urine 7.5 (4.5-7.5)
[2019-04-16] MEDS ORDERED: OPTIRAY 320 125ml IV PRN (13:12)
[2019-04-16] MEDS ORDERED: DEXAMETHASONE **PF** INJ 10 MG/ML VIAL IV ONE (13:28)
[2019-04-16] MEDS ORDERED: DiphenhydrAMINE HCL 50 MG/ML VIAL IV STA (13:28)
--- NOTE | 2019-04-16 13:35 | CT Scan Report ---
CT angio chest PE protocol CLINICAL HISTORY: 58 years-old Male presenting with Vera abdominal and thoracic back pain, recent hos pitalization and travel, concern for pulmonary embolus. TECHNIQUE: Multidetector CT angiography of the chest was performed after administration of intravenou s contrast. 3-D volumetric and/or maximum intensity projection (MIP) images were subsequently reconst ructed for review. IV contrast: 94 mL of Optiray 320. One or more dose lowering techniques were used consistent with the principles of ALARA (as low as reasonably achievable), including automatic exposu re control, mA or kV adjustment to individual patient size, and/or use of iterative reconstruction. COMPARISON: 12/15/2018. CT DOSE (mGy.cm): The estimated cumulative dose is 604.06 mGy.cm. FINDINGS: General House Worker topogram: Unremarkable. Pulmonary vasculature: The study is adequate for assessment of the pulmonary vascular tree. No filling defect within the pul monary arteries to suggest embolus. Main pulmonary artery is not enlarged. No flattening of the inter ventricular septum. No intracardiac filling defect. No reflux of contrast into the hepatic veins. Remaining chest: Soft tissues: Normal thyroid and thoracic inlet. No axillary, supraclavicular, mediastinal, or hilar lymphadenopathy. Normal aorta. Normal heart size. Coronary artery calcification. No pericardial or pl eural effusion. Upper abdomen normal. Lungs and airways: No pneumothorax. Central airways patent. Pulmonary arteries are not significantly enlarged relative to adjacent bronchi. No interlobular septal thickening. Minimal dependent changes l ikely atelectasis. Mild mosaic attenuation at the lung bases. Musculoskeletal: Normal osseous structures. IMPRESSION: 1. No evidence of pulmonary embolus. 2. Mosaic attenuation of the lung bases could suggest mild small airways disease. 3. No focal infiltrate to suggest pneumonia or other acute intrathoracic pathology. Electronically signed by: Edu Burk M.D. 04/16/2019 1:32 PM
--- NOTE | 2019-04-16 13:42 | CT Scan Report ---
CT abd pelvis oral and IV con CLINICAL HISTORY: 58 years-old Male presenting with severe abd pain, recent dry CT with dilated cecum . TECHNIQUE: Multidetector CT of the abdomen and pelvis was performed after the administration of oral and intravenous contrast. IV contrast: 94 mL of Optiray 320. One or more dose lowering techniques wer e used consistent with the principles of ALARA (as low as reasonably achievable), including automatic exposure control, mA or kV adjustment to individual patient size, and/or use of iterative reconstruc tion. COMPARISON: 04/13/2019. CT DOSE (mGy.cm): The estimated cumulative dose is 604.06. FINDINGS: Aircraft Engine Mechanic topogram: Unremarkable. Lung bases: Normal heart size. Coronary artery calcification. No pericardial or pleural effusion. Min imal dependent changes likely atelectasis. Liver: Normal morphology. Well-defined hypodense lesion in the left hepatic lobe likely hepatic cyst or hamartoma. Patent hepatic vasculature. Biliary: No intrahepatic or extrahepatic biliary ductal dilatation. Normal gallbladder. Pancreas: Mild parenchymal atrophy. Spleen: Normal. Splenule noted. Adrenal glands: Normal. Kidneys and ureters: Normal. No hydronephrosis. Bladder: Circumferential bladder wall thickening. Pelvic organs: Prostate enlargement likely secondary to benign prostatic hyperplasia. Bowel: Fluid in the colon suggests a diarrheal state. Resolution of prior stool burden. No colonic or small bowel distention. The appendix is normal. No bowel obstruction. Trace hiatal hernia may be pre sent. Duodenal diverticulum anteriorly at the level of the descending portion. Peritoneal cavity: No free fluid or intraperitoneal gas. Lymph nodes: No enlarged lymph nodes in the abdomen or pelvis. Vasculature: Atherosclerosis of the normal caliber abdominal aorta. IVC patent. Abdominal wall: Skin thickening and subcutaneous fat infiltration in the lower abdominal wall more so on the left. Fat-containing umbilical hernia. Musculoskeletal: Normal. IMPRESSION: 1. Skin thickening and subcutaneous fat infiltration in the lower anterior abdominal wall more so on the left. This most likely relates to medication administration. Correlate clinically to exclude pauline lulitis. 2. Fluid in the colon suggests a diarrheal or cathartic state. No stool burden. No colonic distentio n. No bowel obstruction. 3. Chronic bladder outlet obstruction secondary to prostatomegaly. Electronically signed by: Edu Burk M.D. 04/16/2019 1:41 PM
--- NOTE | 2019-04-16 15:03 | History & Physical Report ---
Date of Service April 16, 2019 Assessment & Plan (1) Abdominal pain, generalized: Patient's abdominal pain is significant and unremitting. Given the CT scan showing relative improvement of his large stool burden rules out possibility this is related to obstipation. Possibilities could include his bladder outlet obstruction and urinary tract infection versus abdominal wall cellulitis that is yet to declare itself versus shingles on that left side. Patient has no systemic signs or symptoms of infection such as leukocytosis or fever. We will control his pain check blood cultures and follow fever curve and white blood cell count. If cellulitis declares itself likely covering for MRSA would be warranted and vancomycin should be started. Given the patient does inject himself for insulin coverage of cellulitis may be more likely if the patient appears to have what could be zoster we will begin acyclovir or valacyclovir. CT scan seem to rule out any significant intra-abdominal pathology with exception of enlarged bladder and urine analysis will be checked, Flomax will be begun (2) Diabetes type 1, uncontrolled: Patient's blood glucoses have been reasonably controlled as far as Mrs. Sanchez showed me on her glucometer. Patient be maintained on a substitution of Lantus for Tresiba and sliding scale and A1c will be checked (3) HTN (hypertension): Patient traditionally is on lisinopril for blood pressure control and secondary prevention of diabetic nephropathy this will be maintained (4) Insomnia: Patient related significant insomnia to me during my evaluation we will try Seroquel at bedtime consider an at bedtime antidepressant such as Remeron to help both mood appetite and insomnia. This we discussed further with the patient throughout his hospital stay (5) DVT prophylaxis: Lovenox will be used for DVT prevention History of Present Illness Primary Care Provider: Mike Sage MD 58-year-old insulin requiring diabetic who presents to the ER with complaints of muscular paraspinous back pain and intense abdominal pain more left-sided than right. Patient's been wrestling with infrequent bowel habits as an outpatient and did have an outpatient CT scan on 13 April showing large cecum wi th moderate stool burden in his abdomen. No other intra-abdominal pathology was seen. Patient states that his back pain began as intrascapular thoracic axial back pain with then progressed towards muscular back pain of the latissimus dorsi and serratus. 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 He also feels left side of his abdomen is more distended or and tender even to light touch. Of note the patient is a subcutaneous insulin user but uses abdomen for injection sites. In the emergency department the quite patient required parenteral opiate pain relief. Laboratories initially did not show any significant abnormalities. CT angiogram of his chest was without pulmonary embolism, or other significant pathology. CT scan of the abdomen pelvis with oral contrast shows skin thickening and subcutaneous fat infiltration of the lower anterior abdominal wall more so on the left most likely related to medication administration fluid- filled: No stool burden chronic bladder outlet obstruction. Patient is currently pending a MRI scan of his spine as ordered by emergency attending Allergies Allergy/AdvReac Type Severity Reaction Status Date / Time Iodinated Contrast- Oral and Allergy Rash Verified 04/16/19 14:00 IV Dye Home Medications Home Medications Medication Instructions Recorded Confirmed Type insulin degludec [Tresiba 10 unit SUBCUT HS 02/23/19 04/16/19 History FlexTouch U-100] acetaminophen [Tylenol Extra 1,000 mg PO Q6H PRN 03/30/19 04/16/19 History Strength] cholecalciferol (vitamin D3) 1,000 unit PO DAILY 03/30/19 04/16/19 History [Vitamin D3] gabapentin 600 mg PO DIRECTED 03/30/19 04/16/19 History ibuprofen [Advil] 800 mg PO Q8H PRN 03/30/19 04/16/19 History insulin aspart U-100 [Novolog 0 units SC DIRECTED 03/30/19 04/16/19 History Flexpen U-100 Insulin] insulin degludec [Tresiba 15 unit SUBCUT QAM 03/30/19 04/16/19 History FlexTouch U-100] lisinopril 10 mg PO QAM 03/30/19 04/16/19 History ergocalciferol (vitamin D2) 50,000 unit PO WK 04/16/19 04/16/19 History [Vitamin D2] Past Med/Surg History Medical History DKA (diabetic ketoacidoses) DVT prophylaxis Diabetes Diabetes type 1, uncontrolled HTN (hypertension) Leukocytosis No significant past surgical history Thrombocythemia Family History Father Heart disease [place] Social History Preferred Language: [place] Communication Ability: Effective Beliefs That Will Affect Care: None marital status: Current Living Situation: Spouse current occupational status: unemployed and previously employed Feels Safe at Home: Yes Smoking Status: Never smoker Tobacco Type: cigars Second Hand Exposure: No Hx Alcohol Use: No (none since last admit in December,) Hx Substance Use: No Review of Systems Review of Systems: ROS: Patient is in mild to moderate discomfort saying he has not slept for days and has not had normal bowel movements for days No double vision blurry vision No problems with speech or swallowing No palpitations, chest pain or pressure No Wheezing or breathing issues Left-sided persistent abdominal pain worsened to touch, no nausea or vomiting with decreased appetite of late recently with liquid stools No burning urine urine frequency he is aware that he has an enlarged prostate but does not denies lower urinary tract symptoms No focal joint pain relates paraspinous muscular pain No skin rashes or oral lesions regularly no changes on his left abdominal wall No unusual bruising or bleeding Persistent bilateral focused back pain without radicular symptoms or loss of strength No changes in memory or confusion Physical Exam Physical Exam: The patient appeared in mild to moderate distress Vital signs as documented. Head exam is unremarkable. normocephalic, atraumatic oropharynx is clear as he recently has had a history of thrush Neck is without jugular venous distension, thyromegaly, or lymphademopathy Lungs are clear to auscultation and percussion. Cardiac exam reveals Rhythm is regular. First and second heart sounds normal. Abdominal exam reveals normal bowel sounds, diffusely tender to percussion to palpation no focal areas of guarding rebound no acute abdomen, no masses, no organomegaly Extremities are nonedematous and both pedal pulses are present Neurologic exam is A&Ox3, no focal deficits, strength is equal bilateral sensation is equal bilaterally Psychologically seems anxious Skin is warm Dry without bruises or lesions particularly no skin changes to his left abdominal wall Results & Data Vital Signs (Past 12 Hours) Vital Signs Temp Pulse Pulse Resp BP BP Pulse Ox 04/16/19 14:22 92 H 18 104/75 98 04/16/19 14:01 95 04/16/19 13:37 108 H 20 112/71 98 04/16/19 12:43 85 16 147/95 H 100 04/16/19 11:28 92 H 16 157/90 H 98 04/16/19 10:42 82 20 147/89 H 100 04/16/19 10:15 100 04/16/19 09:51 36.6 C 106 H 18 89/[address] scan of the abdomen pelvis shows skin thickening and subcutaneous fat in filtration of the lower anterior abdominal wall more so on the left, this most likely represents medication administration however clinical correlation is recommended. Fluid in the colon suggest diarrheal cathartic state no stool burden no colonic distention no obstruction Chronic bladder outlet obstruction secondary prostatomegaly CT chest for PE shows no evidence of PE mosaic attenuation of the lung bases suggesting small airway disease no focal infiltrate suggesting pneumonia or other intrathoracic pathology EKG shows sinus rhythm with nonspecific T wave changes which is similar to March 2019 PG Care Time/CCT Total # of Minutes Spent Total Time Spent with Patient: Total time spent is greater than 50% in coordination of care (as documented) at patient's floor/unit and/or counseling patient:
[2019-04-16] MEDS ORDERED: GLUCAGON FOR INJ 1 MG VIAL SQ PRN (16:16)
[2019-04-16] MEDS ORDERED: DEXTROSE 50% 50 ML SYRINGE IV PRN (16:16)
[2019-04-16] MEDS ORDERED: CARBOHYDRATES FOR HYPOGLYCEMIA PO PRN (16:16)
[2019-04-16] MEDS ORDERED: GLUCOSE 40% GEL 15 GM TUBE PO PRN (16:16)
[2019-04-16] MEDS ORDERED: ACETAMINOPHEN 500 MG TAB PO PRN (16:16)
[2019-04-16] MEDS ORDERED: IBUPROFEN 800 MG TAB PO PRN (16:16)
[2019-04-16] MEDS ORDERED: GABAPENTIN 600 MG TAB PO PRN (16:16)
[2019-04-16] MEDS ORDERED: GLUCOSE 10 TABS/TUBE PO PRN (16:16)
--- NOTE | 2019-04-16 16:22 | Magnetic Resonance Report ---
MR thoracic spine wo con CLINICAL HISTORY: 58 years-old Male presenting with thoracic back pain, chronic mid back pain. TECHNIQUE: Multisequence, multiplanar MR imaging of the thoracic spine was performed without the use of intravenous contrast. IV contrast: None. COMPARISON: Correlation made to CTA chest from earlier today. FINDINGS: Localizer images: Unremarkable. Normal thoracic kyphosis. Vertebral bodies maintain normal height and alignment. Mild disc desiccatio n may be present in the thoracic spine. No intervertebral disc height loss. Small disc osteophyte com plexes noted at T5-6 through T7-8, with mild effacement of the ventral thecal sac. Mild contouring of the anterior spinal cord along the paracentral right aspect at T6-7 and paracentral left aspect at T 7-8. No significant neural foraminal narrowing. Thoracic spinal cord normal in morphology and signal intensity. No gross evidence of an epidural isabela ection. No paraspinal muscle edema. T2 flow-voids within the vasculature preserved. Visualized soft t issues within normal limits. IMPRESSION: Mild degenerative changes in the midthoracic spine from T5-6 through T7-8 with mild contouring of the spinal cord. No evidence of spinal cord impingement. No neural foraminal narrowing. Electronically signed by: Edu Burk M.D. 04/16/2019 4:20 PM
--- NOTE | 2019-04-16 17:28 | Emergency Department Note ---
Entered by Serenity Pham acting as a scribe for Fransisco Norwood MD ED Provider Note CHIEF COMPLAINT: Back pain HISTORY OF PRESENT ILLNESS: The patient is a 58 year old male who presents to the Emergency Room with complaints of worsening left sided back pain. The patient states that he was discharged in December for DKA. He reports that he started to develop back pain 2 weeks after discharge. He reports that the pain worsens when he takes deep breaths and with movement. The patient notes that he believes that the pain is muscular and not thoracic. He notes that his pain is a 9/10. He states that he received CT scans 2 days ago for his CT scan that showed constipation, but no perforation of abscess. He reports that he has developed abdominal pain 3 days ago. He states that he has been experiencing nausea and vomiting that started last night. The patient reports that he has been taking 2000 mg of Tylenol, 2400 mg of Advil, and 650 mg of Aspirin a day for his pain. He states that he has been having normal blood sugar of 128-158 recently. Pt denies LOC, headache, fevers, chills, diaphoresis, visual changes, neck pain, chest pain, breathing difficulties, dark or bloody stools, hematemesis, melena, hematochezia, urinary symptoms, numbness, weakness, lymphadenopathy, rash, or other complaints. REVIEW OF SYSTEMS: See HPI for pertinent positives and negatives. A total of ten systems were reviewed and were otherwise negative. PMHx/PSHx: DKA SOCIAL HISTORY: Patient lives at home. PHYSICAL EXAM: GENERAL: Awake, alert, very uncomfortable-appearing, in severe distress HENT: Normocephalic, atraumatic. Oropharynx unremarkable. EYES: PERRL. Normal conjunctiva. Sclera non-icteric. NECK: Inspection normal. Non-tender. Supple. No nuchal rigidity. FROM. No masses. RESPIRATORY: Clear to auscultation. No wheezes. No rales. Normal respiratory effort. CARDIAC: Tachycardic. Normal rhythm. No murmurs. No rubs. Extremities warm and well perfused. Pulses equal. No JVD. GI: Soft, non-distended. Diffuse severe tenderness to palpation. Guarding. No rebound. No masses. RECTAL: Deferred. MUSCULOSKELETAL: Atraumatic. Chest examination reveals no tenderness. The back is symmetrical on inspection without obvious abnormality. Tenderness to rhomboids, lats, and lower perispinal msucles. There is no CVA tenderness to palpation. No joint edema. LOWER EXTREMITIES: Calves are equal size bilaterally and non-tender. No edema. No discoloration. NEURO: Normal sensorium. No sensory or motor deficits noted. SKIN: No rash or jaundice noted. EMERGENCY DEPARTMENT COURSE: 1000: Past medical records reviewed. The patient was evaluated in room B12B, and a complete history and physical examination were performed. 1034: I reevaluated the patient and he is currently being medicated. 1045: I reevaluated the patient. 1250: I discussed the patient's [facility] he will evaluate the patient. 1335: The patient had an allergic reaction from the CT dye. He received steroids and Benadryl and is feeling better. 1410: [facility] will further evaluate the patient. MEDICAL DECISION MAKING: Prior records/ancillary studies reviewed. The patient had an admission for DKA in December of this year. The patient had a recent outpatient CT scan which showed a dilated cecum 2 days ago. Nursing notes reviewed and agree them. Additional history obtained from patient's . The patient's history was concerning for abdominal pain, thoracic back pain, and vomiting. Differential diagnosis: Etiologies such as perforated viscus, severe constipation, mesenteric ischemia, diverticulitis, osteomyelitis, discitis, herniated disc, DKA, metabolic, infection, hypo/hyperglycemia, electrolyte abnormalities, cardiac sources, intracerebral event, toxicologic, neurologic, as well as others were entertained. Physical examination: As above. Patient was in severe distress. He is very uncomfortable. Very tender abdomen and thoracic musculature. ER treatment provided: IV Lock Normal saline hydration IV Dilaudid x2 IV Zofran IV Pepcid On reassessment the patient felt better. After CT imaging the patient had an allergic reaction and developed hives and itching diffusely. IV Benadryl 50 mg IV Decadron 10 mg On reassessment the patient was feeling better. His allergic symptoms had abated. No airway issues. Diagnostics interpretation by me: ECG: Nonspecific ST changes not new compared to prior. The labs revealed an unremarkable i-STAT. Normal renal function. CBC was unremarkable. The patient's chemistry panel was unremarkable as well. LFTs negative. Lipase normal. Cardiac troponin is negative. Magnesium minimal elevated. Imaging studies: Chest x-ray. Findings: A chest x-ray was performed and revealed no pneumothorax, effusion, infiltrate, pulmonary edema, free air under the diaphragm, or wide mediastinum. Impression: No acute disease. CT scan of the chest, abdomen and pelvis were performed. There was no evidence of thromboembolic disease. No pneumonia. The patient had no perforated viscus, obstruction, abscess, or other emergent pathology noted within the abdomen and pelvis. Moderate amount of liquid noted scattered throughout the bowel. No impaction or colitis. No radiologic evidence to explain the patient's level of discomfort. MR imaging of the thoracic spine was performed due to the significant amount of upper back pain. There is no evidence of discitis, osteomyelitis, or abnormal cord pathology. The patient was able to rest comfortably after the above treatment. His diagnostic Work-up at this time is unrevealing. Further management will be necessary in the hospital. Consultation: A consultation was placed with the [facility] hospitalist. The case was discussed and diagnostics were reviewed. The patient was evaluated in the ER for further treatment. IMPRESSION: Generalized Abdominal Pain. Thoracic back pain. Hypotension Tachycardia History of diabetes PLAN: Admitted. The scribe's documentation has been prepared under my direction and personally reviewed by me in its entirety. I confirm that the note above accurately reflects all work, treatment, procedures, and medical decision making performed by me. 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 That might be an issue." Hx Substance Use: No Results & Data Vital Signs Vital Signs - 24 hr 04/16/19 09:51 04/16/19 10:15 04/16/19 10:42 Temperature 36.6 C Temperature Source Oral Sepsis Recent Fever Within 48 Hours No Sepsis Action Taken by Nursing No Action Required Pulse Rate 106 H Pulse Rate [Apical] 82 Pulse Rhythm [Apical] Regular Respiratory Rate 18 20 Respiratory Effort / Characteristics Grunting Moaning Non-Labored Respiratory Depth Normal Normal Respiratory Pattern Regular Regular Blood Pressure 89/58 L Blood Pressure [Left Arm] 147/89 H Blood Pressure Mean 68 Blood Pressure Mean [Left Arm] 108 Blood Pressure Position Sitting Blood Pressure Position [Left Arm] Lying Pulse Oximetry 100 100 100 Oxygen Delivery Method Room Air Room Air Room Air Oxygen Flow Rate 04/16/19 11:28 04/16/19 12:43 04/16/19 13:37 Temperature Temperature Source Sepsis Recent Fever Within 48 Hours Sepsis Action Taken by Nursing Pulse Rate Pulse Rate [Apical] 92 H 85 108 H Pulse Rhythm [Apical] Respiratory Rate 16 16 20 Respiratory Effort / Characteristics Non-Labored Spontaneous Non-Labored Spontaneous Non-Labored Spontaneous Respiratory Depth Normal Respiratory Pattern Blood Pressure Blood Pressure [Left Arm] 157/90 H 147/95 H 112/71 Blood Pressure Mean Blood Pressure Mean [Left Arm] 112 112 84 Blood Pressure Position Blood Pressure Position [Left Arm] Lying Pulse Oximetry 98 100 98 Oxygen Delivery Method Room Air Room Air Room Air Oxygen Flow Rate 04/16/19 14:01 04/16/19 14:22 04/16/19 14:26 Temperature Temperature Source Sepsis Recent Fever Within 48 Hours Sepsis Action Taken by Nursing Pulse Rate Pulse Rate [Apical] 92 H Pulse Rhythm [Apical] Respiratory Rate 18 Respiratory Effort / Characteristics Non-Labored Spontaneous Respiratory Depth Normal Respiratory Pattern Blood Pressure Blood Pressure [Left Arm] 104/75 Blood Pressure Mean Blood Pressure Mean [Left Arm] 84 Blood Pressure Position Blood Pressure Position [Left Arm] Pulse Oximetry 95 98 Oxygen Delivery Method Nasal Cannula Nasal Cannula Room Air Oxygen Flow Rate 2 2 Home Medications Current Medication List: was personally reviewed by me Laboratory Data Attestation: I reviewed the patient's lab results. Result diagrams: 04/16/19 10:08 04/16/19 10:08 Lab Results 04/16/19 04/16/19 04/16/19 Range/Units 10:08 10:08 10:08 WBC 5.35 (4.8-10.8) K/uL RBC 4.55 L (4.7-6.1) M/uL Hgb 14.5 (14.0-18.0) g/dL POC Hgb (14.0-18.0) g/dl Hct 38.9 L (42-52) % POC Hct (42-52) % MCV 85.5 (80-100) fL MCH 31.9 (25-34) pg MCHC 37.3 H (32-36) g/dL RDW Std Deviation 36.8 (36.4-46.3) fL RDW Coeff of Mart 11.9 (11.5-14.5) % Plt Count 247 (130-400) K/uL MPV 10.0 (7.4-10.4) fL Immature Gran % (Auto) 0.2 % Neut % (Auto) 60.0 % Lymph % (Auto) 25.6 % [place] % (Auto) 12.3 % Eos % (Auto) 1.5 % Baso % (Auto) 0.4 % Immature Gran # (Auto) 0.01 (0.00-0.02) K/uL Neut # (Auto) 3.21 (1.4-6.5) K/uL Lymph # (Auto) 1.37 (1.2-3.4) K/uL [place] # (Auto) 0.66 H (0.11-0.59) K/uL Eos # (Auto) 0.08 (0-0.5) K/uL Baso # (Auto) 0.02 (0-0.2) K/uL POC Sodium (135-144) mEq/L Sodium 132 L (136-145) mmol/L POC Potassium (3.3-5.0) mEq/L Potassium 4.3 (3.5-5.1) mmol/L POC Chloride (101-112) mEq/L Chloride 98 (98-107) mmol/L Carbon Dioxide 26 (21-32) mmol/L POC Total CO2 (24-31) mEq/l Anion Gap 8.0 (3-11) POC Anion Gap (16-25) mmol/L POC BUN (7-18) mg/dl BUN 11 (7-18) mg/dl Creatinine 1.00 (0.6-1.4) mg/dl POC Creatinine (0.6-1.3) mg/dl Est Cr Clr Drug Dosing Not Reportable Est GFR ( Amer) 95.1 Est GFR (Non-Af Amer) 82.0 BUN/Creatinine Ratio 11.0 (10-20) Glucose 169 H (70-99) mg/dl POC Glucose (other) (70-99) mg/dl Calcium 9.9 (8.5-10.1) mg/dl POC Ioniz Calcium Vivi (1.12-1.32) mmol/l Magnesium 2.5 H (1.8-2.4) mg/dl Total Bilirubin 0.7 (0.2-1) mg/dl AST 12 L (15-37) U/L ALT 28 (12-78) U/L Alkaline Phosphatase 51 (45-117) U/L Troponin I < 0.015 (0-0.045) ng/ml Total Protein 7.1 (6.4-8.2) gm/dl Albumin 3.9 (3.4-5.0) gm/dl Globulin 3.2 (2.5-4.0) gm/dl Albumin/Globulin Ratio 1.2 (0.9-2) Lipase 126 (73-393) U/L TSH 2.850 (0.300-4.500) uIu/ml Urine Color Urine Appearance (Clear) Urine pH (4.5-7.5) Ur Specific [place] (1.000-1.030) Urine Protein (Negative) Urine Glucose (UA) (Negative) Urine Ketones (Negative) Urine Blood (Negative) Urine Nitrite (Negative) Urine Bilirubin (Negative) Urine Urobilinogen (Negative) Ur Leukocyte Esterase (Negative) Salicylates (2.8-20) mg/dl Acetaminophen (10-30) ug/ml 04/16/19 04/16/19 04/16/19 Range/Units 10:08 10:13 11:50 WBC (4.8-10.8) K/uL RBC (4.7-6.1) M/uL Hgb (14.0-18.0) g/dL POC Hgb 13.9 L (14.0-18.0) g/dl Hct (42-52) % POC Hct 41 L (42-52) % MCV (80-100) fL MCH (25-34) pg MCHC (32-36) g/dL RDW Std Deviation (36.4-46.3) fL RDW Coeff of Mart (11.5-14.5) % Plt Count (130-400) K/uL MPV (7.4-10.4) fL Immature Gran % (Auto) % Neut % (Auto) % Lymph % (Auto) % [place] % (Auto) % Eos % (Auto) % Baso % (Auto) % Immature Gran # (Auto) (0.00-0.02) K/uL Neut # (Auto) (1.4-6.5) K/uL Lymph # (Auto) (1.2-3.4) K/uL [place] # (Auto) (0.11-0.59) K/uL Eos # (Auto) (0-0.5) K/uL Baso # (Auto) (0-0.2) K/uL POC Sodium 131 L (135-144) mEq/L Sodium (136-145) mmol/L POC Potassium 4.5 (3.3-5.0) mEq/L Potassium (3.5-5.1) mmol/L POC Chloride 94 L (101-112) mEq/L Chloride (98-107) mmol/L Carbon Dioxide (21-32) mmol/L POC Total CO2 22 L (24-31) mEq/l Anion Gap (3-11) POC Anion Gap 21.0 (16-25) mmol/L POC BUN 10 (7-18) mg/dl BUN (7-18) mg/dl Creatinine (0.6-1.4) mg/dl POC Creatinine 0.8 (0.6-1.3) mg/dl Est Cr Clr Drug Dosing Est GFR ( Amer) Est GFR (Non-Af Amer) BUN/Creatinine Ratio (10-20) Glucose (70-99) mg/dl POC Glucose (other) 170 H (70-99) mg/dl Calcium (8.5-10.1) mg/dl POC Ioniz Calcium Vivi 1.21 (1.12-1.32) mmol/l Magnesium (1.8-2.4) mg/dl Total Bilirubin (0.2-1) mg/dl AST (15-37) U/L ALT (12-78) U/L Alkaline Phosphatase (45-117) U/L Troponin I (0-0.045) ng/ml Total Protein (6.4-8.2) gm/dl Albumin (3.4-5.0) gm/dl Globulin (2.5-4.0) gm/dl Albumin/Globulin Ratio (0.9-2) Lipase (73-393) U/L TSH (0.300-4.500) uIu/ml Urine Color Yellow Urine Appearance Clear (Clear) Urine pH 7.5 (4.5-7.5) Ur Specific [place] 1.011 (1.000-1.030) Urine Protein Negative (Negative) Urine Glucose (UA) Negative (Negative) Urine Ketones Negative (Negative) Urine Blood Negative (Negative) Urine Nitrite Negative (Negative) Urine Bilirubin Negative (Negative) Urine Urobilinogen Negative (Negative) Ur Leukocyte Esterase Negative (Negative) Salicylates < 1.7 L (2.8-20) mg/dl Acetaminophen < 2 L (10-30) ug/ml Administered Medications Sodium Chloride (Nss 1000ml) 1,000 mls @ 125 mls/hr IV .Q8H PATSY Stop: 04/16/19 18:14 Last Admin: 04/16/19 11:28 Dose: 125 mls/hr Documented by: [id number] Ioversol (Optiray 320 125ml) 94 ml IV ONCE PRN PRN Reason: Interaction Checking Stop: 04/20/19 13:11 Last Admin: 04/16/19 13:13 Dose: 94 ml Documented by: [id number] Discontinued Medications Dexamethasone Sodium Phosphate (Decadron Pf) 10 mg IV NOW ONE Stop: 04/16/19 13:29 Last Admin: 04/16/19 13:36 Dose: 10 mg Documented by: [id number] Diphenhydramine HCl (Benadryl) 50 mg IV NOW STA Stop: 04/16/19 13:29 Last Admin: 04/16/19 13:36 Dose: 50 mg Documented by: [id number] Famotidine (Pepcid 20mg Iv Push) 20 mg IV ONE STA Stop: 04/16/19 10:25 Last Admin: 04/16/19 10:39 Dose: 20 mg Documented by: [id number] Hydromorphone HCl (Dilaudid) 0.5 mg IV Q15M PRN PRN Reason: Pain Stop: 04/30/19 10:14 Last Admin: 04/16/19 15:10 Dose: 0.5 mg Documented by: [id number] Admin: 04/16/19 13:01 Dose: 0.5 mg Documented by: [id number] Admin: 04/16/19 11:54 Dose: 0.5 mg Documented by: [id number] Admin: 04/16/19 10:39 Dose: 0.5 mg Documented by: [id number] Sodium Chloride (Nss) 500 mls @ 999 mls/hr IV .Q31M PATSY Stop: 04/16/19 10:45 Last Infusion: 04/16/19 11:28 Dose: 0 mls/hr Documented by: [id number] Admin: 04/16/19 10:38 Dose: 999 mls/hr Documented by: [id number] Ondansetron HCl (Zofran) 4 mg IV NOW STA Stop: 04/16/19 10:16 Last Admin: 04/16/19 10:39 Dose: 4 mg Documented by: [id number] Imaging Data Radiologist's Impression: Radiology results as stated below per my review and the radiologist's interpretation: XR chest 1V portable CLINICAL HISTORY: 58 years-old Male presenting with back pain, abd pain. TECHNIQUE: Portable upright AP view of the chest was obtained. COMPARISON: 03/30/2019. FINDINGS: Atherosclerosis of the aortic arch. Cardiac silhouette top normal in size. No focal opacity. No large effusion or pneumothorax. Osseous structures normal. Upper abdomen normal. IMPRESSION: 1. No acute cardiopulmonary disease. Electronically signed by: Edu Burk M.D. 04/16/2019 10:[address] abd pelvis oral and IV con CLINICAL HISTORY: 58 years-old Male presenting with severe abd pain, recent dry CT with dilated cecum. TECHNIQUE: Multidetector CT of the abdomen and pelvis was performed after the administration of oral and intravenous contrast. IV contrast: 94 mL of Optiray 320. One or more dose lowering techniques were used consistent with the principles of ALARA (as low as reasonably achievable), including automatic exposure control, mA or kV adjustment to individual patient size, and/or use of iterative reconstruction. COMPARISON: 04/13/2019. CT DOSE (mGy.cm): The estimated cumulative dose is 604.06. FINDINGS: Production Control Manager topogram: Unremarkable. Lung bases: Normal heart size. Coronary artery calcification. No pericardial or pleural effusion. Minimal dependent changes likely atelectasis. Liver: Normal morphology. Well-defined hypodense lesion in the left hepatic lobe likely hepatic cyst or hamartoma. Patent hepatic vasculature. Biliary: No intrahepatic or extrahepatic biliary ductal dilatation. Normal gallbladder. Pancreas: Mild parenchymal atrophy. Spleen: Normal. Splenule noted. Adrenal glands: Normal. Kidneys and ureters: Normal. No hydronephrosis. Bladder: Circumferential bladder wall thickening. Pelvic organs: Prostate enlargement likely secondary to benign prostatic hyperplasia. Bowel: Fluid in the colon suggests a diarrheal state. Resolution of prior stool burden. No colonic or small bowel distention. The appendix is normal. No bowel obstruction. Trace hiatal hernia may be present. Duodenal diverticulum anteriorly at the level of the descending portion. Peritoneal cavity: No free fluid or intraperitoneal gas. Lymph nodes: No enlarged lymph nodes in the abdomen or pelvis. Vasculature: Atherosclerosis of the normal caliber abdominal aorta. IVC patent. Abdominal wall: Skin thickening and subcutaneous fat infiltration in the lower abdominal wall more so on the left. Fat-containing umbilical hernia. Musculoskeletal: Normal. IMPRESSION: 1. Skin thickening and subcutaneous fat infiltration in the lower anterior abdominal wall more so on the left. This most likely relates to medication administration. Correlate clinically to exclude cellulitis. 2. Fluid in the colon suggests a diarrheal or cathartic state. No stool burden. No colonic distention. No bowel obstruction. 3. Chronic bladder outlet obstruction secondary to prostatomegaly. Electronically signed by: Edu Burk M.D. 04/16/2019 1:[address] angio chest PE protocol CLINICAL HISTORY: 58 years-old Male presenting with Vera abdominal and thoracic back pain, recent hospitalization and travel, concern for pulmonary embolus. TECHNIQUE: Multidetector CT angiography of the chest was performed after administration of intravenous contrast. 3-D volumetric and/or maximum intensity projection (MIP) images were subsequently reconstructed for review. IV contrast: 94 mL of Optiray 320. One or more dose lowering techniques were used consistent with the principles of ALARA (as low as reasonably achievable), including automatic exposure control, mA or kV adjustment to individual patient size, and/or use of iterative reconstruction. COMPARISON: 12/15/2018. CT DOSE (mGy.cm): The estimated cumulative dose is 604.06 mGy.cm. FINDINGS: Production Control Manager topogram: Unremarkable. Pulmonary vasculature: The study is adequate for assessment of the pulmonary vascular tree. No filling defect within the pulmonary arteries to suggest embolus. Main pulmonary artery is not enlarged. No flattening of the interventricular septum. No intracardiac filling defect. No reflux of contrast into the hepatic veins. Remaining chest: Soft tissues: Normal thyroid and thoracic inlet. No axillary, supraclavicular, mediastinal, or hilar lymphadenopathy. Normal aorta. Normal heart size. Coronary artery calcification. No pericardial or pleural effusion. Upper abdomen normal. Lungs and airways: No pneumothorax. Central airways patent. Pulmonary arteries are not significantly enlarged relative to adjacent bronchi. No interlobular septal thickening. Minimal dependent changes likely atelectasis. Mild mosaic attenuation at the lung bases. Musculoskeletal: Normal osseous structures. IMPRESSION: 1. No evidence of pulmonary embolus. 2. Mosaic attenuation of the lung bases could suggest mild small airways disease. 3. No focal infiltrate to suggest pneumonia or other acute intrathoracic pathology. Electronically signed by: Edu Burk M.D. 04/16/2019 1:32 PM ECG Data Attestation: I personally reviewed and interpreted this ECG as follows: Indication: back/shoulder pain Rate (beats per minute): 88 Rhythm: normal sinus Findings: + nonspecific-ST abn; no PAC, no PVC, no ST depression and no ST elevation Comparison ECG Date: from (03/30/19) Change: no significant change Blood Pressure Blood Pressure Findings: Normal blood pressure Blood Pressure Disposition: did not require urgent referral Discharge Plan Visit Data *Final* Discharge Date/Time: 04/16/19 15:40 Chief Complaint: Back Injury/Pain Stated Complaint: BACK AND ABDOMINAL PAIN ED Provider: Fransisco Norwood Discharge Problem: Abdominal pain, generalized, Back pain, thoracic Patient Disposition: Admitted As Inpatient Discharge Instructions Interventions: ED Discharge Assessment Last Done: 04/16/19 15:40 Discharge Problem: Back pain, thoracic Qualifiers: Chronicity: unspecified Back pain laterality: bilateral Qualified Code(s): M54.6 - Pain in thoracic spine The scribe's documentation has been prepared under my direction and personally reviewed by me in its entirety. I confirm that the note above accurately reflects all work, treatment, procedures, and medical decision making performed by me.
[2019-04-16] MEDS ORDERED: KETOROLAC TROMETHAMINE 15 MG/ML VIAL IV ONE (17:45)
[2019-04-16] MEDS: INSULIN ASPART 100 UNITS/ML 3 ML PEN SC SCH ×2 (17:48→21:25)
[2019-04-16] MEDS: ONDANSETRON INJ 2 MG/ML 2 ML VIAL IV PRN (19:44)
[2019-04-16] MEDS ORDERED: QUETIAPINE FUMARATE 25 MG TABLET PO ONE (21:00)
[2019-04-16] MEDS: TAMSULOSIN HCL 0.4 MG CAP PO SCH (21:21)
[2019-04-16] MEDS: INSULIN GLARGINE SOLOSTAR 100 UNITS/ML 3 ML PEN SC SCH (21:25)
[2019-04-17] MEDS: HYDROmorphone INJ 0.5 MG/0.5 ML SYR IV PRN ×7 (02:06→22:09)
[2019-04-17] MEDS: ONDANSETRON INJ 2 MG/ML 2 ML VIAL IV PRN (05:49)
[2019-04-17] MEDS: BACLOFEN 10 MG TAB PO SCH ×3 (06:34→21:51)
[2019-04-17 06:56] LABS: BUN Creatinine Ratio 19.8 (10-20); Calcium 8.9 mg/dl (8.5-10.1); Creatinine Clr Calc Pharmacy 99.6 ml/min; Est GFR (African American) 113.3; Est GFR (Non-African American) 97.8; Potassium 4.3 mmol/L (3.5-5.1)
[2019-04-17] MEDS: CHOLECALCIFEROL 1,000 UNITS TAB PO SCH (07:55)
[2019-04-17] MEDS: LISINOPRIL 10 MG TAB PO SCH (07:55)
[2019-04-17] MEDS ORDERED: ENOXAPARIN INJ 40 MG/0.4 ML SYR SQ SCH (09:00)
[2019-04-17] MEDS ORDERED: POLYETHYLENE (MIRALAX) 17 GM PACK PO SCH (09:00)
[2019-04-17] MEDS ORDERED: INSULIN GLARGINE SOLOSTAR 100 UNITS/ML 3 ML PEN SC SCH (09:00)
[2019-04-17] MEDS: INSULIN ASPART 100 UNITS/ML 3 ML PEN SC SCH ×4 (09:19→22:25)
[2019-04-17] MEDS ORDERED: FAMOTIDINE 20MG/5ML IV PUSH IV SCH (11:30)
[2019-04-17] MEDS: FAMOTIDINE 20 MG in SYRINGE 3 ML IV SCH ×2 (12:19→21:50)
[2019-04-17] MEDS: NORMOSOL-R 1,000 ML IV SCH (12:24)
--- NOTE | 2019-04-17 12:33 | Hospitalist Progress Note ---
Date of Service April 17, 2019 Assessment & Plan (1) Abdominal pain, generalized: Patient's abdominal pain continues. Given the CT scan showing relative improvement of his large stool burden rules out possibility this is related to obstipation. Patient has no systemic signs or symptoms of infection such as leukocytosis or fever. Patient notes he has not been eating is using his abdomen for insulin injections and uses his thighs more often than his abdomen. Patient also relates weight loss and increasing symptoms after eating. He denies having any gallbladder disease and initial liver function tests have been unremarkable. He was taking large doses of ibuprofen for his back pain prior to presenting. I personally spoke to just in case gastroenterology the patient be placed on scheduled for tentative upper endoscopy on 04/18, as he will be made n.p.o. he will be started on a Normosol infusion CT scan seem to rule out any significant intra-abdominal pathology with exception of enlarged bladder and urine urine culture pending tolerating Flomax (2) Diabetes type 1, uncontrolled: Patient's blood glucoses have been reasonably controlled Patient be maintained on a substitution of Lantus for Tresiba and sliding scale and A1c is pending (3) HTN (hypertension): Patient traditionally is on lisinopril for blood pressure control and secondary prevention of diabetic nephropathy this will be maintained (4) Insomnia: Patient related significant insomnia to me during my evaluation we will try Seroquel at bedtime consider an at bedtime antidepressant such as Remeron to help both mood appetite and insomnia. This we discussed further with the patient throughout his hospital stay (5) DVT prophylaxis: Lovenox will be used for DVT prevention he will be held prior to his procedure Subjective Patient had slight improvement overnight his back pain has improved after muscle relaxants were added however he is now main focus his abdominal discomfort is central in nature he is anorexia complains about 15 pound weight loss over the last 3 months. States anytime he eats he becomes nauseated he does not vomit he has not had any melena however he did have some increased stool production with cathartic agents that were given because of his previous constipation. His is at the bedside she reminds me that he did not have any health maintenance such as a screening colonoscopy. He is never had an upper endoscopy nor has a history of ulcer disease however he has been taking large doses of prescription ibuprofen at home prior to coming in for his back pain he remains not anemic Review of Systems Review of Systems: ROS: well nourished well developed. No double vision blurry vision No problems with speech or swallowing No palpitations, chest pain or pressure No Wheezing or breathing issues Centralized abdominal pain which is dull and achy worsened by eating more epigastric No burning urine urine frequency seems to have no complaints associated with his enlarged prostate No focal joint pain or muscle pain No skin rashes or oral lesions No unusual bruising or bleeding No focused back pain or numbness or loss of strength No changes in memory or confusion Physical Exam Physical Exam: The patient appeared well nourished and normally developed. Vital signs as documented. Head exam is unremarkable. normocephalic, atraumatic Neck is without jugular venous distension, thyromegaly, or lymphademopathy Lungs are clear to auscultation and percussion. Cardiac exam reveals Rhythm is regular. First and second heart sounds normal. Abdominal exam reveals normal bowel sounds, he is voluntary guarding he has some soft tissue fullness in the left side without evidence of induration fluctuance or erythema. He has negative tenderness in the right upper quadrant or right lower quadrant. He has no rebound Extremities are nonedematous and both pedal pulses are present Neurologic exam is A&Ox3, no focal deficits, strength is equal bilateral Psychologically seems anxious Skin is warm Dry without bruises or lesions Results & Data Vital Signs (Past 12 Hours) Vital Signs Temp Pulse Resp BP BP Pulse Ox 04/17/19 08:21 36.7 C 89 18 134/75 98 04/17/19 06:18 36.3 C L 85 18 142/80 H 98 PG Care Time/CCT Total # of Minutes Spent Total Time Spent with Patient: Total time spent is greater than 50% in coordination of care (as documented) at patient's floor/unit and/or counseling patient:
[2019-04-17] MEDS ORDERED: Nursing to Pharmacy Communication ONE (17:11)
[2019-04-17] MEDS: TAMSULOSIN HCL 0.4 MG CAP PO SCH (21:52)
[2019-04-18] MEDS: NORMOSOL-R 1,000 ML IV SCH (00:23)
[2019-04-18] MEDS: HYDROmorphone INJ 0.5 MG/0.5 ML SYR IV PRN ×3 (01:20→06:45)
[2019-04-18] MEDS: ONDANSETRON INJ 2 MG/ML 2 ML VIAL IV PRN ×2 (05:55→17:51)
[2019-04-18 06:04] LABS: Hematocrit (blood only) 36.1 % (42-52); Hemoglobin 12.8 g/dL (14.0-18.0); Mean Corpuscular Hgb Conc 35.5 g/dL (32-36); Mean Corpuscular Volume 88.7 fL (80-100); Mean Platelet Volume 10.1 fL (7.4-10.4); Platelet Count 228 K/uL (130-400); RDW Coefficient of Variation 12.4 % (11.5-14.5); RDW Standard Deviation 39.6 fL (36.4-46.3); Red Blood Count 4.07 M/uL (4.7-6.1); White Blood Count 5.81 K/uL (4.8-10.8)
[2019-04-18 06:38] LABS: BUN Creatinine Ratio 15.5 (10-20); Calcium 9.1 mg/dl (8.5-10.1); Creatinine Clr Calc Pharmacy 97.1 ml/min; Est GFR (African American) 112.2; Est GFR (Non-African American) 96.8; Potassium 3.9 mmol/L (3.5-5.1)
[2019-04-18 06:45] LABS: Estimated Average Glucose 163 mg/dl; Hemoglobin A1C 7.3 % (4.5-5.6)
--- NOTE | 2019-04-18 07:01 | Ultrasound Report ---
US liver CLINICAL HISTORY: eval for GB disease pain. Nausea. COMPARISON STUDY: No previous studies for comparison. FINDINGS: Normal gallbladder. Common bile duct 4 mm. Liver is uniform throughout. There is a small le ft hepatic lobe cyst measuring 8 mm. Right kidney is negative for hydronephrosis. IMPRESSION: No acute process. The above report was generated using voice recognition software. It may contain grammatical, syntax or spelling errors. Electronically signed by: Cody Barreto M.D. 04/18/2019 7:00 AM
[2019-04-18] MEDS: INSULIN ASPART 100 UNITS/ML 3 ML PEN SC SCH ×4 (08:22→20:53)
[2019-04-18] MEDS ORDERED: HYDROmorphone INJ 1 MG/ML SYRINGE ONE (08:38)
[2019-04-18] MEDS: FAMOTIDINE 20 MG in SYRINGE 3 ML IV SCH ×2 (08:39→20:22)
--- NOTE | 2019-04-18 08:52 | Anesthesiology Consultation ---
Date of Service April 18, 2019 Assessment & Plan (1) Encounter for pre-operative examination: Chart Review Chart Review: Acceptable Risk for Surgery History Surgery Operation Date: 04/18/19 08:30 Proposed Procedures p Esophagogastroduodenoscopy Dr Mateo Presley Case, DO Height/Weight Height: 5 ft 10 in Weight: 70.8 kg Allergies Allergy/AdvReac Type Severity Reaction Status Date / Time Iodinated Contrast- Oral and Allergy Rash Verified 04/16/19 14:00 IV Dye Medications Home Medications Medication Instructions Recorded Confirmed Last Taken insulin degludec [Tresiba 10 unit SUBCUT HS 02/23/19 04/16/19 04/15/19 FlexTouch U-100] acetaminophen [Tylenol Extra 1,000 mg PO Q6H PRN 03/30/19 04/16/19 04/16/19 Strength] cholecalciferol (vitamin D3) 1,000 unit PO DAILY 03/30/19 04/16/19 04/16/19 [Vitamin D3] gabapentin 600 mg PO DIRECTED 03/30/19 04/16/19 04/16/19 ibuprofen [Advil] 800 mg PO Q8H PRN 03/30/19 04/16/19 04/16/19 insulin aspart U-100 [Novolog 0 units SC DIRECTED 03/30/19 04/16/19 04/16/19 Flexpen U-100 Insulin] insulin degludec [Tresiba 15 unit SUBCUT QAM 03/30/19 04/16/19 04/16/19 FlexTouch U-100] lisinopril 10 mg PO QAM 03/30/19 04/16/19 04/16/19 ergocalciferol (vitamin D2) 50,000 unit PO WK 04/16/19 04/16/19 Unknown [Vitamin D2] Active Medications Generic Name Dose Route Start Last Admin Trade Name Freq PRN Reason Stop Dose Admin Baclofen 10 mg 04/17/19 09:00 04/17/19 21:51 Lioresal PO 05/17/19 08:59 10 mg TID PATSY Administration Enoxaparin Sodium 40 mg 04/17/19 09:00 04/17/19 07:56 Lovenox SQ 05/17/19 08:59 40 mg DAILY PATSY Administration Glucose 4 - 8 tabs 04/16/19 16:16 04/17/19 17:05 Dex4 Glucose PO 05/16/19 16:15 3 tabs UD PRN Administration Hypoglycemia Protocol Protocol Parenteral Electrolytes 1,000 mls @ 80 mls/hr 04/17/19 11:30 04/18/19 00:23 Normosol-R IV 05/17/19 11:29 80 mls/hr .[id number] PATSY Administration Famotidine 20 mg/ Syringe 5 mls @ 2.5 mls/min 04/17/19 11:45 04/18/19 08:39 IV 05/17/19 11:44 2.5 mls/min BID PATSY Administration Insulin Aspart 0 units 04/16/19 16:30 04/18/19 08:22 Novolog Flexpen SC 05/16/19 16:29 Not Given ACHS PATSY Insulin Glargine 10 units 04/16/19 21:00 04/16/19 21:25 Lantus Solostar Pen SC 05/16/19 20:59 10 units PM PATSY Administration Insulin Glargine 15 units 04/17/19 09:00 04/17/19 09:16 Lantus Solostar Pen SC 05/17/19 08:59 15 units DAILY PATSY Administration Ioversol 94 ml 04/16/19 13:12 04/16/19 13:13 Optiray 320 125ml IV 04/20/19 13:11 94 ml ONCE PRN Administration Interaction Checking Lisinopril 10 mg 04/17/19 09:00 04/17/19 07:55 Zestril PO 05/17/19 08:59 10 mg QAM PATSY Administration Ondansetron HCl 4 mg 04/16/19 16:16 04/18/19 05:55 Zofran IV 05/16/19 16:15 4 mg Q6H PRN Administration Nausea Tamsulosin HCl 0.4 mg 04/16/19 21:00 04/17/19 21:52 Flomax PO 05/16/19 20:59 Not Given HS PATSY Vitamin D 1,000 units 04/17/19 09:00 04/17/19 07:55 Vitamin D3 PO 05/17/19 08:59 1,000 units DAILY PATSY Administration NPO Date Last Intake of Fluids: 04/17/19 Time Last Intake of Fluids: 22:00 Date Last Intake of Solids: 04/17/19 Time Last Intake of Solids: 22:00 Past Medical History Medical History DKA (diabetic ketoacidoses) DVT prophylaxis Diabetes Diabetes type 1, uncontrolled HTN (hypertension) Leukocytosis No significant past surgical history Thrombocythemia Past Family History Family History Father Heart disease PR Social History Smoking Status: Never smoker tobacco type: cigars Do You Dip or Chew Tobacco: No Hx Alcohol Use: Yes Alcohol type: beer and wine alcohol intake frequency: a few times a week Alcohol Intake Frequency Comment: no intake in more than 30 days r/t illness Hx Substance Use: No substance use type: does not use Physical Exam Vital Signs Last Vital Signs Temp 36.8 C 04/18/19 08:13 Pulse 86 04/18/19 08:13 Resp 20 04/18/19 08:13 BP 164/81 H 04/18/19 08:13 Pulse Ox 98 04/18/19 08:13 Testing Laboratory Results 04/18/19 05:39 04/18/19 05:39 Hemoglobin A1c 7.3 % (4.5-5.6) H 04/17/19 05:58 Urine Color Yellow 04/16/19 11:50 Urine Appearance Clear (Clear) 04/16/19 11:50 Urine pH 7.5 (4.5-7.5) 04/16/19 11:50 Ur Specific Western 1.011 (1.000-1.030) 04/16/19 11:50 Urine Protein Negative (Negative) 04/16/19 11:50 Urine Glucose (UA) Negative (Negative) 04/16/19 11:50 Urine Ketones Negative (Negative) 04/16/19 11:50 Urine Nitrite Negative (Negative) 04/16/19 11:50 Ur Leukocyte Esterase Negative (Negative) 04/16/19 11:50 04/18/19 04/18/19 08:01 04:08 POC Glucose 96 87
[2019-04-18] MEDS ORDERED: fentaNYL citrate 100 MCG/2 ML VIAL ONE (09:34)
[2019-04-18] MEDS ORDERED: PROPOFOL IV EMULSION 10 MG/ML 20 ML VIAL IV ONE (09:34)
[2019-04-18] MEDS ORDERED: LIDOCAINE HCL 2% 2 ML VIAL/AMP(20MG/ML) INFIL ONE (09:34)
[2019-04-18] MEDS ORDERED: ONDANSETRON INJ 2 MG/ML 2 ML VIAL ONE (10:30)
--- NOTE | 2019-04-18 10:31 | Consultation Report ---
DATE OF CONSULTATION: 04/18/2019 GASTROENTEROLOGY CONSULT RACE: . ATTENDING PHYSICIAN: Sherman Tony MD CONSULTING PHYSICIAN: Dangelo Galindo DO REASON FOR CONSULTATION: Abdominal pain in the right upper quadrant. 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 He described the pain as constant, severe, sharp, stabbing and radiating to the back. He denied alleviating factors. He did have associated nausea with vomiting on the morning of his admission, which he described as nonbloody and did have multiple episodes of explosive diarrhea. He did undergo testing in the Department of Emergency Medicine including a CBC which showed a normal white blood cell count with a hemoglobin of 14.5, hematocrit of 38.9. His liver panel was unremarkable as was his UA. He did undergo a CT scan of the abdomen and pelvis which showed fluid in the colon suggesting a diarrheal or cathartic state, chronic bladder outlet obstruction, no bowel obstruction, no colonic distention and right upper quadrant ultrasound which was performed early this morning that showed no acute findings. Repeat CBC from today did show a decrease in his H and H to 12.8 and 36.1. At the time that I saw the patient, he was sitting in his chair. He was extremely uncomfortable. He described a continued abdominal pain as 8/10 in intensity, radiating to his back. Again, described as chronic and stabbing without exacerbating factors, though he did state that it was alleviated by Dilaudid therapy slightly. He was asking for higher dose of Dilaudid as he stated that the dosage that he was prescribed throughout the night was not sufficient. He states that he has had a 15-pound weight loss over the past month due to persistent abdominal pain and states that he has been taking multiple doses of aspirin and ibuprofen for his back pain. He does have type 1 diabetes and did present in December for DKA, though has no evidence of DKA on this admission. He also has no evidence of pancreatitis on this admission, though he did have an elevated lipase level in the past. He denies any further complaints. PAST MEDICAL HISTORY: Significant for type 1 diabetes, hypertension, thrombocythemia, leukocytosis, history of DKA. PAST SURGICAL HISTORY: None. ALLERGIES: IVP DYE. MEDICATIONS AT PRESENT: Include baclofen 10 mg p.o. t.i.d., vitamin D3 1000 units p.o. daily, vitamin D2 50,000 units p.o. q. week, Pepcid 20 mg IV b.i.d., gabapentin 600 mg p.o. daily p.r.n., hydromorphone 1 mg IV q. 3 p.r.n., sliding scale insulin, Glargine 10 units subQ p.m., lisinopril 10 mg p.o. q.a.m., Zofran 4 mg IV q. 6 p.r.n., Flomax 0.4 mg p.o. at bedtime, hydromorphone 0.5 mg IV q. 3 hours p.r.n. pain, ibuprofen 800 mg p.o. q. 8 p.r.n., MiraLax 17 grams p.o. daily, Lovenox 40 mg subQ daily. SOCIAL HISTORY: He is . He denies any tobacco or illicit drug use. He does drink alcohol socially. FAMILY HISTORY: Positive for ulcerative colitis in his father who underwent a colectomy as well as heart disease. No other family history per the patient. REVIEW OF SYSTEMS: Negative [id number] review other than pertinent positives listed in the HPI. PHYSICAL EXAMINATION: VITAL SIGNS: Temp 36.8, pulse 86, respirations 20, blood pressure 164/81, pulse ox 98% on room air. GENERAL: He is awake, cooperative, in moderate distress. HEAD: Normocephalic, atraumatic. EYES: Pupils equal, round. Extraocular muscles are intact. ENT: External evaluation of ears and nose are normal. Oropharynx is clear. NECK: Soft, supple. No JVD or lymphadenopathy. CHEST: Clear to auscultation bilaterally. CARDIOVASCULAR SYSTEM: Regular rate and rhythm. ABDOMEN: Soft, tender throughout his abdominal wall. Nondistended. There are positive bowel sounds. There is no appreciable hepatosplenomegaly. EXTREMITIES: No clubbing, no cyanosis, no edema. SKIN: Soft, pink. Good turgor. LABORATORY STUDIES AND RADIOGRAPHIC STUDIES: Reviewed in the HPI. IMPRESSION: A 58-year-old male with severe abdominal pain with history of significant NSAID use with continued symptoms. PLAN: At the present time, I would recommend that the patient be kept n.p.o. He will undergo an upper endoscopy today. I will continue him on his current medical regimen at this time and make further recommendations following the above-noted testing. I do think it is imperative that he remain off NSAIDs as these are ulcerogenic and could lead to many of the symptoms that he is experiencing, though this will be further evaluated on upper endoscopy. Once again, thanks for allowing me to participate in the care of this patient. If you have any further questions, please do not hesitate in contacting me.
--- NOTE | 2019-04-18 11:27 | GI REPORT ---
Patient Name: Kavon Sanchez Procedure Date: 04/18/2019 9:34 AM Date of : 1960 Admit Type: Inpatient Age: 58 Gender: Male Attending MD: Dangelo Galindo DO Procedure: Upper GI endoscopy Providers: Dangelo Galindo DO Referring MD: Sherman Tony Indications: Generalized abdominal pain Medicines: Monitored Anesthesia Care Complications: No immediate complications. Estimated Blood Loss: Estimated blood loss: none. Procedure: Pre-Anesthesia Assessment: - Prior to the procedure, a History and Physical was performed, and patient medications and allergies were reviewed. The patient's tolerance of previous anesthesia was also reviewed. The risks and benefits of the procedure and the sedation options and risks were discussed with the patient. All questions were answered, and informed consent was obtained. Prior Anticoagulants: The patient has taken Lovenox (enoxaparin), last dose was 1 day prior to procedure. ASA Grade Assessment: III - A patient with severe systemic disease. After reviewing the risks and benefits, the patient was deemed in satisfactory condition to undergo the procedure. After obtaining informed consent, the endoscope was passed under direct vision. Throughout the procedure, the patient's blood pressure, pulse, and oxygen saturations were monitored continuously. The Endoscope was introduced through the mouth, and advanced to the second part of duodenum. The upper GI endoscopy was accomplished without difficulty. The patient tolerated the procedure well. Findings: The esophagus was normal. Localized mild inflammation characterized by erythema was found in the gastric antrum. Biopsies were taken with a cold forceps for histology. The examined duodenum was normal. Biopsies for histology were taken with a cold forceps for evaluation of celiac disease. Impression: - Normal esophagus. - Gastritis. Biopsied. - Normal examined duodenum. Biopsied. Recommendation: - Return patient to hospital vo for ongoing care. - Perform a colonoscopy tomorrow. - Clear liquid diet. - Continue present medications. Dangelo Galindo DO 04/18/2019 11:27:08 AM This report has been signed electronically. Note Initiated On: 04/18/2019 9:34 AM Number of Addenda: 0 I attest to the content of the Intraoperative Record and orders documented therein, exceptions below {[id number]}
[2019-04-18] MEDS: HYDROmorphone INJ 1 MG/ML SYRINGE IV PRN ×3 (11:54→20:50)
[2019-04-18] MEDS: BACLOFEN 10 MG TAB PO SCH ×3 (11:59→20:05)
--- NOTE | 2019-04-18 12:20 | Anesthesiology Progress Note ---
Date of Service April 18, 2019 Anesthesia Post Procedure Vital Signs Vital Signs: Temp Pulse Resp BP BP Pulse Ox 04/18/19 11:25 77 18 171/86 H 100 04/18/19 11:10 85 16 158/94 H 100 04/18/19 10:55 36.8 C 84 14 176/98 H 100 04/18/19 09:32 36.5 C 81 18 142/82 H 100 04/18/19 08:13 36.8 C 86 20 164/81 H 98 04/17/19 23:36 36.5 C 86 20 152/78 H 98 04/17/19 17:09 36.9 C 84 123/73 100 Pain Intensity Bilateral Abdomen: Pain Intensity: 8 Back: Pain Intensity: 8 Transfer of Care Handoff Completed per policy Notes Mental Status: alert / awake / arousable and participated in evaluation Patient Amnestic to Procedure: Yes Nausea / Vomiting: adequately controlled Pain: adequately controlled Airway Patency, RR, SpO2: stable & adequate BP & HR: stable & adequate Hydration State: stable & adequate Anesthetic Complications: no major complications apparent and Pt Satisfied with anesthetic care
[2019-04-18] MEDS: LISINOPRIL 10 MG TAB PO SCH (13:46)
[2019-04-18] MEDS: CHOLECALCIFEROL 1,000 UNITS TAB PO SCH (13:46)
[2019-04-18] MEDS ORDERED: KETOROLAC 30 MG/ML VIAL IV ONE (17:22)
[2019-04-18] MEDS ORDERED: ACETAMINOPHEN 1,000 MG/100 ML VIAL IV STA (17:22)
[2019-04-18] MEDS ORDERED: LAVAGE SOLUTION 4000ML PO SCH (18:00)
[2019-04-18] MEDS ORDERED: POLYETHYLENE GLYCOL 3350 238 GM BTL PO ONE (19:30)
[2019-04-18] MEDS: TAMSULOSIN HCL 0.4 MG CAP PO SCH (20:05)
[2019-04-18] MEDS: INSULIN GLARGINE SOLOSTAR 100 UNITS/ML 3 ML PEN SC SCH (20:52)
--- NOTE | 2019-04-18 22:00 | Hospitalist Progress Note ---
Date of Service April 18, 2019 Assessment & Plan (1) Back pain, thoracic: Extensive work-up to date without spine/bone etiology found. Most of his pain is myofascial in origin. Plan to check a lyme's, CPK, sed rate, crp, vitamin D level, and testosterone level. If labs are negative strongly consider pain management consult, trial of cymbalta or lyrica, etc. Present on Admission?: Yes (2) Abdominal pain, generalized: Extensive work-up thus far including CT abd/pelvis, liver u/s, EGD, etc all negative/normal. Cause? Prep for colonoscopy tonight, then c-scope tomorrow by Dr Galindo. If negative consider repeat cortisol level. TSH in recent past wnl. Recent constipation on imaging is resolved. Could consider IBS treatment with bentyl, etc. Await biopsies from EGD. Present on Admission?: Yes (3) Myalgia: see discussion above in "back pain" consider acupuncture. Present on Admission?: Yes (4) Vitamin D deficiency: recheck 25-OH vit D level - has been on replacement since December Present on Admission?: Yes (5) HTN (hypertension): BPs remaining high despite lisinopril. if still high by tomorrow then increase dose. Present on Admission?: Yes (6) Type 1 diabetes mellitus: with hypoglycemia. due to anorexia and weight loss his insulin requirements have dropped considerably. cont to adjust basal - bolus regimen. of note - cortisol level earlier this year was normal. Present on Admission?: Yes (7) Mood disorder: I believe that anxiety is playing some role in his symptoms or at least making them worse. Consider cymbalta. (8) Enlarged prostate: continue flomax (9) DVT prophylaxis: lovenox, but holding for colonoscopy tomorrow Subjective patient states that his myalgias date back to early January when he & his family were traveling in [place]. much of the myalgia pain is centered in the paraspinals of the upper back as wel l as his flanks bilaterally. he does have proximal muscle pain in the shoulder and hip girdle regions as well. mentions it hurts to move his arms upwards in the air. has morning stiffness lasting hours. pain wakes him up at night. abdominal pain is generalized but worst over the left side of his abdomen. he believes that the abdomen grossly looks assymetric. he has lost 15 pounds of late due to poor appetite. his insulin requirements have dropped tremendously due to the weight loss. he is quite anxious. mentions having to start work in [employer] on May 05 and that he can't imagine working with symptoms like this. has had subjective fevers/sweats. Review of Systems Constitutional: as per Subjective / HPI, + sweats, + fatigue, + anorexia and + weight loss Respiratory: no cough and no dyspnea Cardiovascular: no chest pain Gastrointestinal: + abdominal pain, + nausea, + vomiting and + constipation; no diarrhea/loose stools Musculoskeletal: as per Subjective / HPI; no radicular pain Integumentary: no rash Neurologic: no paralysis and no numbness Psychiatric: + anxiety Endocrine: + cold intolerance Physical Exam Constitutional: + acute distress (c/o soreness in numerous areas, very uncomfortable) and + frail appearing; no altered mental status ENMT: external ear and nose normal, oropharynx normal Neck: trachea midline, no thyromegaly Respiratory: normal respiratory effort, lungs clear to auscultation Cardiovascular: Rate/Rhythm: regular rate and regular rhythm Heart Sounds: normal S1 and normal S2; no murmur Vessels: posterior tibial pulses present and dorsalis pedis pulses present; no JVD Extremities: no edema Gastrointestinal (Abdomen): Inspection/Auscultation: abdomen not distended, no abdominal wall ecchymosis and no visible herniation Percussion/Palpation: + abdomen tender (left side of abdomen ) and abdomen soft; no hepatosplenomegaly Musculoskeletal: Spine: no thoracic spinal tenderness and no lumbar spinal tenderness proximal muscle weakness of shoulders and to a small degree the hips; he has paired tender points across the upper and mid back; has paired tender points upper anterior chest; he has multiple other areas of myofascial pain Skin: no rashes, warm and dry Psychiatric: Orientation: alert and oriented x 3 Affect: + anxious affect Results & Data Vital Signs (Past 12 Hours) Vital Signs Temp Pulse Resp BP BP Pulse Ox 04/18/19 17:42 36.8 C 87 19 189/92 H 97 04/18/19 11:25 77 18 171/86 H 100 04/18/19 11:10 85 16 158/94 H 100 04/18/19 10:55 36.8 C 84 14 176/98 H 100 Laboratory Results Laboratory Results - last 24 hr 04/17/19 04/18/19 04/18/19 05:58 04:08 05:39 WBC 5.81 RBC 4.07 L Hgb 12.8 L Hct 36.1 L MCV 88.7 MCH 31.4 MCHC 35.5 RDW Std Deviation 39.6 RDW Coeff of Mart 12.4 Plt Count 228 MPV 10.1 Sodium Potassium Chloride Carbon Dioxide Anion Gap BUN Creatinine Est Cr Clr Drug Dosing Est GFR ( Amer) Est GFR (Non-Af Amer) BUN/Creatinine Ratio Glucose POC Glucose 87 Estimat Average Glucose 163 Hemoglobin A1c 7.3 H Calcium 04/18/19 04/18/19 04/18/19 05:39 08:01 09:26 WBC RBC Hgb Hct MCV MCH MCHC RDW Std Deviation RDW Coeff of Mart Plt Count MPV Sodium 138 Potassium 3.9 Chloride 105 Carbon Dioxide 25 Anion Gap 8.0 BUN 13 Creatinine 0.82 Est Cr Clr Drug Dosing 97.1 Est GFR ( Amer) 112.2 Est GFR (Non-Af Amer) 96.8 BUN/Creatinine Ratio 15.5 Glucose 92 POC Glucose 96 112 H Estimat Average Glucose Hemoglobin A1c Calcium 9.1 04/18/19 04/18/19 04/18/19 11:33 14:40 17:13 WBC RBC Hgb Hct MCV MCH MCHC RDW Std Deviation RDW Coeff of Mart Plt Count MPV Sodium Potassium Chloride Carbon Dioxide Anion Gap BUN Creatinine Est Cr Clr Drug Dosing Est GFR ( Amer) Est GFR (Non-Af Amer) BUN/Creatinine Ratio Glucose POC Glucose 118 H 181 H 194 H Estimat Average Glucose Hemoglobin A1c Calcium 04/18/19 20:07 WBC RBC Hgb Hct MCV MCH MCHC RDW Std Deviation RDW Coeff of Mart Plt Count MPV Sodium Potassium Chloride Carbon Dioxide Anion Gap BUN Creatinine Est Cr Clr Drug Dosing Est GFR ( Amer) Est GFR (Non-Af Amer) BUN/Creatinine Ratio Glucose POC Glucose 159 H Estimat Average Glucose Hemoglobin A1c Calcium PG Care Time/CCT Total # of Minutes Spent Total Time Spent with Patient: Total time spent is greater than 50% in coordination of care (as documented) at patient's floor/unit and/or counseling patient: (1) Back pain, thoracic Back pain laterality: bilateral Chronicity: unspecified Qualified Code(s): M54.6 - Pain in thoracic spine (2) HTN (hypertension) Hypertension type: essential hypertension Qualified Code(s): I10 - Essential (primary) hypertension (3) Type 1 diabetes mellitus Diabetes mellitus complication status: with other specified complication Qualified Code(s): E10.69 - Type 1 diabetes mellitus with other specified c omplication
[2019-04-19] MEDS: HYDROmorphone INJ 1 MG/ML SYRINGE IV PRN ×6 (02:20→19:08)
[2019-04-19 06:45] LABS: BUN Creatinine Ratio 16.3 (10-20); Blood Urea Nitrogen 12 mg/dl (7-18); Calcium 9.4 mg/dl (8.5-10.1); Carbon Dioxide 26 mmol/L (21-32); Chloride 104 mmol/L (98-107); Creatinine Clr Calc Pharmacy 112.2 ml/min; Est GFR (Non-African American) 102.7; Glucose 128 mg/dl (70-99); Potassium 3.9 mmol/L (3.5-5.1); Sodium 137 mmol/L (136-145)
[2019-04-19 06:48] LABS: C Reactive Protein < 0.29 mg/dl (0-0.29); Creatine Kinase 29 U/L (39-308)
[2019-04-19 07:21] LABS: Lyme Ab IgG w/WB Rflx Negative (Negative); Lyme Ab IgM w/WB Rflx Negative (Negative)
[2019-04-19] MEDS: BACLOFEN 10 MG TAB PO SCH ×2 (08:07→14:12)
[2019-04-19] MEDS: LISINOPRIL 10 MG TAB PO SCH (08:07)
[2019-04-19] MEDS: FAMOTIDINE 20 MG in SYRINGE 3 ML IV SCH (08:12)
[2019-04-19] MEDS: CHOLECALCIFEROL 1,000 UNITS TAB PO SCH (08:12)
[2019-04-19] MEDS: INSULIN ASPART 100 UNITS/ML 3 ML PEN SC SCH ×4 (08:27→20:55)
[2019-04-19 08:33] LABS: Testosterone 313.7 ng/dl
--- NOTE | 2019-04-19 10:22 | History & Physical Bridge Note ---
Date of Service April 19, 2019 History & Physical Bridge Note I have examined the patient, reviewed the History & Physical and in the interval since the performance of the History & Physical I have noted the following changes of clinical significance: Patient reports having persistent, severe abdominal pain rated 9/10 at present with associated nausea. Poorly tolerated GoLytely bowel prep and was switched to a MiraLAX and Powerade prep. States he is passing some liquid brown stools this morning but "it's getting more yellow". A/P: Abdominal pain -Proceed with colonoscopy today with Dr. Galindo. -Additional recommendations pending results of testing. Supervising Physician Co-Signing Physician Notes Agree with JOSELUIS Nails as above Abd: Soft, tender throughout, ND, +BS Continue current therapy Proceed with colonoscopy today
[2019-04-19] MEDS ORDERED: LIDOCAINE HCL 2% 2 ML VIAL/AMP(20MG/ML) INFIL ONE (11:03)
[2019-04-19] MEDS ORDERED: MIDAZOLAM HCL 1 MG/ML 2ML VIAL ONE (11:03)
[2019-04-19] MEDS ORDERED: PROPOFOL IV EMULSION 10 MG/ML 20 ML VIAL IV ONE ×2 (11:03→11:38)
[2019-04-19] MEDS ORDERED: fentaNYL citrate 100 MCG/2 ML VIAL ONE (11:09)
[2019-04-19] MEDS ORDERED: ONDANSETRON INJ 2 MG/ML 2 ML VIAL ONE (11:11)
--- NOTE | 2019-04-19 11:52 | Anesthesiology Progress Note ---
Date of Service April 19, 2019 Anesthesia Post Procedure Vital Signs Vital Signs: Temp Pulse Pulse Resp BP Pulse Ox 04/19/19 11:44 81 16 141/94 H 100 04/19/19 10:40 36.4 C L 85 16 164/93 H 100 04/19/19 07:28 36.7 C 85 18 174/91 H 100 04/18/19 22:37 36.5 C 84 15 184/87 H 97 04/18/19 17:42 36.8 C 87 19 189/92 H 97 Pain Intensity Bilateral Abdomen: Pain Intensity: 8 Back: Pain Intensity: 7 Transfer of Care Handoff Completed per policy Notes Mental Status: alert / awake / arousable and participated in evaluation Patient Amnestic to Procedure: Yes Nausea / Vomiting: adequately controlled Pain: adequately controlled Airway Patency, RR, SpO2: stable & adequate BP & HR: stable & adequate Hydration State: stable & adequate Anesthetic Complications: no major complications apparent
--- NOTE | 2019-04-19 12:16 | GI REPORT ---
Patient Name: Kavon Sanchez Procedure Date: 04/19/2019 11:15 AM Date of : 1960 Admit Type: Inpatient Age: 58 Gender: Male Attending MD: Dangelo Galindo DO Procedure: Colonoscopy Providers: Dangelo Galindo DO Referring MD: Cuong Logan Indications: Generalized abdominal pain Medicines: Monitored Anesthesia Care Complications: No immediate complications. Estimated Blood Loss: Estimated blood loss: none. Procedure: Pre-Anesthesia Assessment: - Prior to the procedure, a History and Physical was performed, and patient medications and allergies were reviewed. The patient's tolerance of previous anesthesia was also reviewed. The risks and benefits of the procedure and the sedation options and risks were discussed with the patient. All questions were answered, and informed consent was obtained. Prior Anticoagulants: The patient has taken no previous anticoagulant or antiplatelet agents. ASA Grade Assessment: III - A patient with severe systemic disease. After reviewing the risks and benefits, the patient was deemed in satisfactory condition to undergo the procedure. After I obtained informed consent, the scope was passed under direct vision. Throughout the procedure, the patient's blood pressure, pulse, and oxygen saturations were monitored continuously. The scope was introduced through the anus and advanced to the terminal ileum. The colonoscopy was performed without difficulty. The patient tolerated the procedure well. The quality of the bowel preparation was good. The terminal ileum, ileocecal valve, appendiceal orifice, and rectum were photographed. Findings: The perianal and digital rectal examinations were normal. A 12 mm polyp was found in the ascending colon. The polyp was flat. The polyp was removed with a piecemeal technique using a hot snare. Resection and retrieval were complete. To prevent bleeding after the polypectomy, one hemostatic clip was successfully placed (MR conditional). There was no bleeding at the end of the procedure. Multiple small-mouthed diverticula were found in the sigmoid colon. Non-bleeding internal hemorrhoids were found during retroflexion. The hemorrhoids were small. Impression: - One 12 mm polyp in the ascending colon, removed piecemeal using a hot snare. Resected and retrieved. Clip (MR conditional) was placed. - Diverticulosis in the sigmoid colon. - Non-bleeding internal hemorrhoids. Recommendation: - Resume previous diet. - Continue present medications. - Repeat colonoscopy for surveillance based on pathology results. - Return to primary care physician as previously scheduled. Dangelo CamilaChaka Galindo, DO 04/19/2019 12:16:10 PM This report has been signed electronically. Note Initiated On: 04/19/2019 11:15 AM Number of Addenda: 0 I attest to the content of the Intraoperative Record and orders documented therein, exceptions below {[id number]}
[2019-04-19] MEDS: ONDANSETRON INJ 2 MG/ML 2 ML VIAL IV PRN (19:11)
[2019-04-19] MEDS ORDERED: DOXEPIN HCL 25 MG CAPSULE PO PRN (19:22)
[2019-04-19] MEDS ORDERED: DICYCLOMINE HCL 10 MG CAP PO PRN (19:22)
[2019-04-19] MEDS: TAMSULOSIN HCL 0.4 MG CAP PO SCH (20:54)
[2019-04-19] MEDS: BACLOFEN 10 MG TAB PO PRN (20:55)
[2019-04-19] MEDS: INSULIN GLARGINE SOLOSTAR 100 UNITS/ML 3 ML PEN SC SCH (20:55)
[2019-04-19] MEDS: HYDROmorphone INJ 0.5 MG/0.5 ML SYR IV PRN (22:54)
--- NOTE | 2019-04-19 23:02 | Hospitalist Progress Note ---
Date of Service April 19, 2019 Assessment & Plan (1) Back pain, thoracic: Present since January 2019. Extensive work-up to date without spine/bone etiology found. CTA chest w/o PEs or other intra-thoracic pathology. MRI t-spine with minimal DJD. Most of his pain is myofascial in origin. Repeat lyme's testing, CPK, sed rate, crp, vitamin D level, and testosterone level - all normal/negative. Total testosterone level is borderline low but doubt causing current symptomatology. See "myalgia" below. I counseled patient today we need to wean the narcotics off as this is not a long-term solution to his pain. He voiced understanding. Cut dilaudid dosing; minimal amount of norco in its place; but plan to stop all narcotics shortly. Present on Admission?: Yes (2) Abdominal pain, generalized: Present for about 2+ months. Extensive work-up thus far including CT abd/pelvis, liver u/s, EGD, colonoscopy etc all negative/normal and w/o specific etiology. TSH and cortisol in recent past normal. Had had severe constipation over last 1-2 months - radiographically and clinically resolved. Much of his pain is gas, cramps, etc. Try bentyl 10mg po q8h prn. Imaging shows thickening of his abdominal wall - this is likely from 30+ years of insulin injection (lipodystrophy?). Duodenal bx NEGATIVE for celiac. Gastric bx with gastritis only -- will Rx PPI x 1 month. 1 polyp seen on colonoscopy today; no other sinister pathology. Mental health issues could be contributing to his abd pains/GI symptoms. Wean narcotics off. Present on Admission?: Yes (3) Myalgia: Extensive w/u to date negative including CPK, sed rate, CRP, lyme's testing, vitamin D level, prior cortisol level, TSH, etc. Imaging w/o specific etiology. NO response to NSAIDs, tylenol, IV steroids. Temporary/fleeting response to narcotics reported by patient - but poor choice for this pain. LENGTHY discussion held with patient today that his pains seem to be myofascial in origin. Discussed pathophysiology of such and which meds actually treat this type of pain. Discussed alternative methods of Rx including accupuncture, massage, etc. I asked my partner Dr Borrego to perform accupuncture on him -- she plans to do such tomorrow. I spoke with Dr Ricks from neurology who will consult tomorrow to ensure there is no other neurological or muscular condition that could be at play here. Normal sed rate/crp argues against autoimmune disease and inflammatory diseases of the muscles. To be complete will send an BELTRAN and aldolase but suspect both will be normal. I also spoke with Dr Avila from pain management who will see him in consult tomorrow. I strongly recommended trial of cymbalta for mood and pain issues - adamantly opposed to such. Present on Admission?: Yes (4) Mood disorder: I believe that patient has severe depression - likely 6+ months in duration - compounded by significant insomnia and anxiety. I believe that these are playing some role in his physical symptoms. Consider cymbalta or SSRI if patient willing to take. He is linked with counselor as outpatient. Also has had marital counseling. Present on Admission?: Yes (5) Insomnia: Severe. Has tried NUMEROUS meds w/o efficacy. Would NOT use ambien, lunesta, etc. Has tried trazodone and elavil - both caused severe sedation. Trial of doxepin - 25mg HS. Present on Admission?: Yes (6) Vitamin D deficiency: resolved level 81 stop all replacement Present on Admission?: Yes (7) HTN (hypertension): BPs remaining high despite lisinopril. if still high next 1-2 days consider increasing dose. (8) Type 1 diabetes mellitus: with hypoglycemia. due to anorexia and weight loss his insulin requirements have dropped considerably. cont to adjust basal - bolus regimen. of note - cortisol level earlier this year was normal. control today was acceptable. (9) Enlarged prostate: symptoms are not disabling and thus he is declining his flomax (10) Colonic polyp: as seen on colonoscopy today - s/p removal await path (11) Gastritis: PPI x 1month (12) Diverticulosis: as seen on colonoscopy today fiber supplement daily (13) Cognitive impairment: as mentioned by . due to mood disorder/depression?? organic work-up - b12/tsh/etc - normal. send vitamin B1 level to be complete. consider neuropsych testing as outpatient. (14) DVT prophylaxis: lovenox was held for colonoscopy today if patient stays beyond tomorrow then resume the lovenox total time today about 75 minutes -- coordinated care with multiple consultants, spoke with , extensive conversation w/ patient, etc. Subjective Patient continues with the following complaints - * severe, diffuse pains in numerous muscle groups including mid-back, abdomen/flanks, thighs, lower legs, shoulders * pains are waking him at night * abdominal pain persists but NOT worsened by food intake * severe insomnia for "months" We had lengthy, heather conversation today about meds tried for pain and insomnia, treatment plan, etc. He previously took gabapentin at high doses (2000mg+) for diabetic neuropathy of feet. He felt that gabapentin made muscle pain worse and thus he stopped it. 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 He will not go back on gabapentin at this time. He has tried elavil and nortriptyline for sleep and neuropathy - both caused heavy sedation - does not want to try these again. 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 He continues to take the dilaudid nearly q3h scheduled; helps for 1-2 hours with pain then his pain returns to previous levels. Has had steroids on at least 2 occasions -- these did NOT help pains in back or other muscle groups. Had steroids last weekend when he had IV contrast reaction --- "did nothing for my pain." When asked about depression he would not endorse such but stated "wouldn't anyone be depressed with what I am going through." (loss of employment, poor health due to pain/DM/etc) He IS getting counseling through local counselor. Has had marital counseling as well. Denies practicing any specific jew. I spoke with Dr Ricks from neuro who saw him as outpatient earlier this year for his muscular complaints. Dr Ricks states he had NORMAL EMGs. He was dx with vitamin D deficiency and he placed him on replacement therapy with transient improvement in myalgias. Spoke with pt's -- voices concerns about leg pains with walking and asks if he could have PAD. She voices concerns about his memory and cognition -- it has been worse in the last year. She also states he spends NUMEROUS days laying in bed all day at home. Prior to him developing severe back pains in January of this year she states he had been very physically active (swimming, doing weight lifting) -- she inquires if this was enough to set off the cascade of events since January. She agrees that he is very depressed. Asks if he should be on antidepressant therapy. Mentions that massage would typically help his muscle pains in the past but lately massage has NOT helped. Review of Systems Constitutional: + fatigue, + malaise, + weakness and + anorexia; no fever and no chills Respiratory: no cough and no dyspnea Cardiovascular: no chest pain Gastrointestinal: + abdominal pain, + bloating and + cramping; no nausea, no vomiting, no constipation and no diarrhea/loose stools Genitourinary: + nocturia (1-2x's nightly); no difficulty urinating Musculoskeletal: as per Subjective / HPI; no radicular pain Integumentary: no rash Neurologic: + numbness (feet only); no headache(s) Psychiatric: + depression, + hopelessness, + abnormal sleep pattern and + anxiety Physical Exam Constitutional: + frail appearing; no acute distress (looks more comfortable today) and no altered mental status ENMT: external ear and nose normal, oropharynx normal Respiratory: normal respiratory effort, lungs clear to auscultation Cardiovascular: Rate/Rhythm: regular rate and regular rhythm Heart Sounds: normal S1 and normal S2; no murmur Vessels: posterior tibial pulses present and dorsalis pedis pulses present; no JVD Extremities: no edema Gastrointestinal (Abdomen): Inspection/Auscultation: abdomen not distended, no abdominal wall ecchymosis and no visible herniation Percussion/Palpation: + abdomen tender (diffusely with minimal palpation) and abdomen soft; no hepatosplenomegaly and no hernia Musculoskeletal: Spine: no thoracic spinal tenderness and no lumbar spinal tenderness diffuse tenderness to palpation over multiple muscle groups - paraspinals of back, muscles of shins, shoulders, etc. NO synovitis of any small or large joint upper or lower extremities. Skin: no rashes, warm and dry Neurologic: no focal motor deficits Motor/Sensory: no tremor Psychiatric: Orientation: alert and oriented x 3 Affect: + depressed affect and + anxious affect Results & Data Vital Signs (Past 12 Hours) Vital Signs Temp Pulse Resp BP Pulse Ox 04/19/19 19:13 36.2 C L 91 H 18 141/83 H 96 04/19/19 12:14 89 16 154/97 H 100 04/19/19 11:59 88 16 145/105 H 100 04/19/19 11:44 81 16 141/94 H 100 Laboratory Results Laboratory Results - last 24 hr 04/19/19 04/19/19 04/19/19 06:00 06:00 06:00 ESR 7 Sodium 137 Potassium 3.9 Chloride 104 Carbon Dioxide 26 Anion Gap 8.0 BUN 12 Creatinine 0.71 Est Cr Clr Drug Dosing 112.2 Est GFR ( Amer) 119.0 Est GFR (Non-Af Amer) 102.7 BUN/Creatinine Ratio 16.3 Glucose 128 H POC Glucose Calcium 9.4 Total Creatine Kinase 29 L C-Reactive Protein < 0.29 25-OH Vitamin D Total Testosterone Level Lyme Disease IgG Ab Negative Lyme Disease IgM Ab Negative 04/19/19 04/19/19 04/19/19 06:00 07:26 12:32 ESR Sodium Potassium Chloride Carbon Dioxide Anion Gap BUN Creatinine Est Cr Clr Drug Dosing Est GFR ( Amer) Est GFR (Non-Af Amer) BUN/Creatinine Ratio Glucose POC Glucose 126 H 106 H Calcium Total Creatine Kinase C-Reactive Protein 25-OH Vitamin D Total 81.0 Testosterone Level 313.7 Lyme Disease IgG Ab Lyme Disease IgM Ab 04/19/19 04/19/19 17:20 20:49 ESR Sodium Potassium Chloride Carbon Dioxide Anion Gap BUN Creatinine Est Cr Clr Drug Dosing Est GFR ( Amer) Est GFR (Non-Af Amer) BUN/Creatinine Ratio Glucose POC Glucose 104 H 122 H Calcium Total Creatine Kinase C-Reactive Protein 25-OH Vitamin D Total Testosterone Level Lyme Disease IgG Ab Lyme Disease IgM Ab PG Care Time/CCT Total # of Minutes Spent Total Time Spent with Patient: Total time spent is greater than 50% in coordination of care (as documented) at patient's floor/unit and/or counseling patient: (1) Type 1 diabetes mellitus Diabetes mellitus complication status: with other specified complication Qualified Code(s): E10.69 - Type 1 diabetes mellitus with other specified complication (2) Back pain, thoracic Back pain laterality: bilateral Chronicity: unspecified Qualified Code(s): M54.6 - Pain in thoracic spine (3) HTN (hypertension) Hypertension type: essential hypertension Qualified Code(s): I10 - Essential (primary) hypertension (4) Colonic polyp Colon polyp type: unspecified Colon location: unspecified part of colon Qualified Code(s): K63.5 - Polyp of colon (5) Gastritis Gastritis type: unspecified gastritis Chronicity: acute Gastritis bleeding: without bleeding Qualified Code(s): K29.00 - Acute gastritis without bleeding (6) Insomnia Insomnia type: unspecified Qualified Code(s): G47.00 - Insomnia, unspecified
[2019-04-20] MEDS: HYDROCODONE/ACETAMOPHEN 5/325MG TAB PO PRN ×2 (00:17→15:56)
[2019-04-20] MEDS: HYDROmorphone INJ 0.5 MG/0.5 ML SYR IV PRN ×4 (03:30→21:10)
[2019-04-20] MEDS: PANTOprazole 40 MG TAB PO SCH (08:01)
[2019-04-20] MEDS: LISINOPRIL 10 MG TAB PO SCH (08:01)
[2019-04-20] MEDS: INSULIN ASPART 100 UNITS/ML 3 ML PEN SC SCH ×4 (08:47→22:11)
--- NOTE | 2019-04-20 09:37 | Pain Management Consultation ---
Date of Consultation April 20, 2019 Assessment & Plan (1) Myalgia: * Has undergone extensive evaluation without including lymes, rheumatologic studies, imaging identifiable etiology. * Symptoms amplified due to underlying depression and anxiety. * Recommend trial of duloxetine 20 mg nightly and increase the dose gradually every weekly if no side effects noted. * Recommend discontinuing IV hydromorphone. If opiate is necessary, recommend hydrocodone 5/325 for no more than 3 to 5 days under supervision. * Recommend conditioning program and outpatient physical therapy to include soft tissue techniques, stretching, and yoga type exercises. * Recommend repeating rheumatologic work-up in the next 2 to 3 months. Present on Admission?: No (2) Depression with anxiety: * Patient agreeable to see psychiatrist on outpatient basis for medical therapy as well as cognitive/behavioral therapy. (3) Diabetic polyneuropathy: History of Present Illness Attending Physician: Cuong Logan History of Present Illness Giulia Germain is a 58-year-old male admitted to [facility] experiencing thoracic paraspinal pain that radiates into bilateral anterior abdominal region from the flanks. He reports experiencing his current symptoms sometime in March after he spent a weekend swimming. Reports the pain is located generally in his rhomboids and thoracic paraspinal regions and radiates distally and laterally into his flanks into the anterior abdominal wall bilaterally. Pain is symmetrical in both sides with slight increase intensity on the right side. Pain is characterized as a constant aching sensation with sharp, shooting episodes that occur in an unprovoked manner. Any physical activity, even minimal activity such as rolling from side to side when sleeping in bed, exacerbate his symptoms. He reports pain to go with minimal activities required for daily living. Pain is associated with significant insomnia where he is unable to fall asleep or is woken up from sleep when he moves. He reports he is not able to sleep more than hour of 2 every night since occurrence of his symptoms in March. He also admits to experiencing depression as result of multiple life stressors and from his current pain symptoms. Previous outpatient treatment included physical therapy (which exacerbated his symptoms), trial of OTC analgesics and NSAIDs, gabapentin, as well as currently he is receiving IV hydromorphone with good efficacy lasting to 3 hours, hydrocodone, as well as oral muscle relaxant therapy. He is also considering trial acupuncture treatment today. He denies any bowel bladder incontinence, any radicular symptoms, saddle anesthesia, night sweats, fevers, or constitutional symptoms associate with his pain. He has several medical comorbid conditions including diabetes type 1, diabetic polyneuropathy, and a previous history of experiencing DKA. Pain Assessment Full Body Front + Back: 1. 2. 3. [facility] Combined Pain Scale: 8-Debilitating - Impairs activity. Can't maintain a conversation. Pain scale - at its best (0-10): 4 Allergies Allergy/AdvReac Type Severity Reaction Status Date / Time Iodinated Contrast- Oral and Allergy Rash Verified 04/16/19 14:00 IV Dye Home Medications Home Medications Medication Instructions Recorded Confirmed Type insulin degludec [Tresiba 10 unit SUBCUT HS 02/23/19 04/16/19 History FlexTouch U-100] ibuprofen [Advil] 800 mg PO Q8H PRN 03/30/19 04/16/19 History insulin aspart U-100 [Novolog 0 units SC DIRECTED 03/30/19 04/16/19 History Flexpen U-100 Insulin] acetaminophen [Tylenol Extra 1,000 mg PO Q6H PRN #0 tab 04/21/19 04/16/19 Rx Strength] doxepin 25 mg PO HS PRN #30 cap 04/21/19 Rx duloxetine 20 mg PO QPM #30 cap 04/21/19 Rx lisinopril 20 mg PO DAILY #30 tab 04/21/19 Rx pantoprazole 40 mg PO QAM #30 tab 04/21/19 Rx thiamine HCl (vitamin B1) 200 mg PO BID #120 tab 04/21/19 Rx Pain History Pain Intensity Pain scale - at its best (0-10): 4 Cause Cause of Pain: Spontaneous Co-morbid Medical Conditions Co-morbid Medical Conditions: HTN Current Therapy Current Medication Therapy: Gabapentin (Self D/C) and other (baclofen) Current or Pending Litigation Current or Pending Litigation: No Patient History Medical History DKA (diabetic ketoacidoses) DVT prophylaxis Diabetes Diabetes type 1, uncontrolled HTN (hypertension) Leukocytosis No significant past surgical history Thrombocythemia Family History Father Heart disease OR Ulcerative colitis Mother Autoimmune disease Social History Preferred Language: Macedonian Communication Ability: Effective Beliefs That Will Affect Care: None marital status: Current Living Situation: Spouse current occupational status: unemployed and previously employed 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 That might be an issue." Hx Substance Use: No Physical Exam Constitutional: WD/WN, vitals as above + acute distress (Moderate with movement. Noted to ambulate from bed to bathroom without difficulty.) and healthy appearing Gastrointestinal (Abdomen): Inspection/Auscultation: + abdominal edema (Left lateral abdominal wall region); no abdominal wall ecchymosis Musculoskeletal: Spine: normal cervical lordosis, thoracic spine normal to inspection, lumbar spine normal to inspection and + paraspinal tenderness (Entire thoracic and upper lumbar spine); no cervical spinal tenderness, no step off deformity and no lumbar spinal tenderness Extremities: strength 5/5 throughout Gait: normal gait Spurling's maneuver negative Skin: no rashes, warm and dry no rashes and no ulcers Neurologic: No focal neurologic deficits noted. Psychiatric: Orientation: alert and oriented x 3 Apperance: + disheveled Eye Contact: good eye contact Motor Behavior: steady gait and station Affect: + depressed affect and + anxious affect Thought Process: goal directed thought process Suicidal Thoughts: denies suicidal thoughts Results Diagnostic Review MRI: enhanced and reports reviewed MRI Findings: [place], [place] [phone] Magnetic Resonance Report Patient: GIULIA LI Date: 04/16/19 MR#: [id number]: [address] Acct ID:[id number]: [facility] 1960[facility] [place] [address] Age: 58Location: 4E Sex: M Room/Bed: E4231 Att Phy: Sherman Tony, MDDiagnosis: intractable abdominal pain Susan Phy: Cuong Sgaeervice Date: 04/16/19 Fam Phy: Interpreting Phy: Edu Burk MD Admit Phy: Sherman Tony MD Ordering Phy: Fransisco Norwood MD cc: ~ MR thoracic spine wo con CLINICAL HISTORY: 58 years-old Male presenting with thoracic back pain, chronic mid back pain. TECHNIQUE: Multisequence, multiplanar MR imaging of the thoracic spine was performed without the use of intravenous contrast. IV contrast: None. COMPARISON: Correlation made to CTA chest from earlier today. FINDINGS: Localizer images: Unremarkable. Normal thoracic kyphosis. Vertebral bodies maintain normal height and alignment. Mild disc desiccation may be present in the thoracic spine. No intervertebral disc height loss. Small disc osteophyte complexes noted at T5-6 through T7-8, with mild effacement of the ventral thecal sac. Mild contouring of the anterior spinal cord along the paracentral right aspect at T6-7 and paracentral left aspect at T7-8. No significant neural foraminal narrowing. Thoracic spinal cord normal in morphology and signal intensity. No gross evidence of an epidural collection. No paraspinal muscle edema. T2 flow-voids within the vasculature preserved. Visualized soft tissues within normal limits. IMPRESSION: Mild degenerative changes in the midthoracic spine from T5-6 through T7-8 with mild contouring of the spinal cord. No evidence of spinal cord impingement. No neural foraminal narrowing. Electronically signed by: Edu Burk M.D. 04/16/2019 4:20 PM Dictated: 04/16/19 1615 Transcribed: 04/16/[address]: enhanced and reports reviewed CT Findings: [facility], [place] [phone] CT Scan Report Patient: GIULIA LI Date: 04/16/19 MR#: [id number]: [id number] Acct ID:[id number]: Date: 1960[facility] Zip: [place] [address] Age: 58Location: ED Sex: M Room/Bed: Att Phy: Diagnosis: BACK AND ABDOMINAL PAIN Susan Phy: Cuong Sageervice Date: 04/16/19 Fam Phy: Interpreting Phy: Edu Burk MD Admit Phy: Ordering Phy: Fransisco Norwood MD cc: ~ CT abd pelvis oral and IV con CLINICAL HISTORY: 58 years-old Male presenting with severe abd pain, recent dry CT with dilated cecum. TECHNIQUE: Multidetector CT of the abdomen and pelvis was performed after the administration of oral and intravenous contrast. IV contrast: 94 mL of Optiray 320. One or more dose lowering techniques were used consistent with the principles of ALARA (as low as reasonably achievable), including automatic exposure control, mA or kV adjustment to individual patient size, and/or use of iterative reconstruction. COMPARISON: 04/13/2019. CT DOSE (mGy.cm): The estimated cumulative dose is 604.06. FINDINGS: Meter Installer topogram: Unremarkable. Lung bases: Normal heart size. Coronary artery calcification. No pericardial or pleural effusion. Minimal dependent changes likely atelectasis. Liver: Normal morphology. Well-defined hypodense lesion in the left hepatic lobe likely hepatic cyst or hamartoma. Patent hepatic vasculature. Biliary: No intrahepatic or extrahepatic biliary ductal dilatation. Normal gallbladder. Pancreas: Mild parenchymal atrophy. Spleen: Normal. Splenule noted. Adrenal glands: Normal. Kidneys and ureters: Normal. No hydronephrosis. Bladder: Circumferential bladder wall thickening. Pelvic organs: Prostate enlargement likely secondary to benign prostatic hyperplasia. Bowel: Fluid in the colon suggests a diarrheal state. Resolution of prior stool burden. No colonic or small bowel distention. The appendix is normal. No bowel obstruction. Trace hiatal hernia may be present. Duodenal diverticulum anteriorly at the level of the descending portion. Peritoneal cavity: No free fluid or intraperitoneal gas. Lymph nodes: No enlarged lymph nodes in the abdomen or pelvis. Vasculature: Atherosclerosis of the normal caliber abdominal aorta. IVC patent. Abdominal wall: Skin thickening and subcutaneous fat infiltration in the lower abdominal wall more so on the left. Fat-containing umbilical hernia. Musculoskeletal: Normal. IMPRESSION: 1. Skin thickening and subcutaneous fat infiltration in the lower anterior abdominal wall more so on the left. This most likely relates to medication administration. Correlate clinically to exclude cellulitis. 2. Fluid in the colon suggests a diarrheal or cathartic state. No stool burden. No colonic distention. No bowel obstruction. 3. Chronic bladder outlet obstruction secondary to prostatomegaly. Electronically signed by: Edu Burk M.D. 04/16/2019 1:41 PM Dictated: 04/16/19 7003 Transcribed: 04/16/19 [id number]
[2019-04-20] MEDS ORDERED: LISINOPRIL 20 MG TAB PO ONE (09:45)
--- NOTE | 2019-04-20 11:20 | Neurology Consultation ---
Date of Consultation April 20, 2019 Assessment & Plan (1) Myalgia: Patient has had unusual , severe, persistent myalgias centered particularly around the thoracic spine bilaterally but also in other areas of his arms and legs. His muscles are tender to palpate. Neurologic examination reveals no focal findings, meningeal signs, or significant encephalopathy. EMG and nerve conduction studies February 24 of this year did not see any active myopathy. The was no radiculopathy but he did have some mild underlying polyneuropathy. Laboratory studies have been unrevealing so far and I do not have any good handle as to why he has this much myalgia and muscle tenderness (even to very light touch). I suppose I cannot entirely exclude an autoimmune disease. Interestingly, both of his parents have had problems with autoimmune diseases. He did refuse blood tests this morning. He does not specifically complain all arthralgias. He does have fatigue and weight loss. His has noted some tremors and gait issues intermittently in the past. I really do not see anything specifically consistent with Parkinson's disease today. He does not have overt bradykinesia, rigidity or cogwheeling comma resting tremor, or a specific Parkinson's gait. (2) Diabetic polyneuropathy: Patient has a very mild underlying generalized polyneuropathy by EMG testing. It involves sensory greater than motor fibers and is likely consistent with mild diabetic polyneuropathy. His hypersensitivity to touch in the feet has been a new phenomenon over the last 2 or 3 months. This exquisite hypersensitivity could be consistent with very about polyneuropathy. Honestly, however, from a neurologic standpoint in my experience I do not see this type of exquisite muscle tenderness or hypersensitivity to touch without other obvious changes on exam and on EMG. (3) Carpal tunnel syndrome, bilateral: Patient was noted to have mild carpal tunnel syndrome by EMG testing in February of this year. There were mild enough that we did not feel there was any additional testing or treatment warranted at this time. (4) Depression with anxiety: Although the patient downplays this (or admits to some mild depression because of his general condition and lack of sleep) I think he is significantly depressed and his symptomatology as noted above could be secondary to depression and anxiety. 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 He tells me today that he is made a decision not to pursue job [employer] that he was applying for. This is because of his physical condition. Overall, I suspect this could be his main problem from which the other issues stem. Interestingly, I have witnessed him going from misery like he is today with his symptoms to completely symptom-free 24 hours later. I cannot explain this neurologically otherwise. (5) Cognitive impairment: Patient has some mild cognitive impairment which is not readily appreciated with simple conversation. There may be a pseudodementia from depression present as well. Recommendations: 1. MRI of the brain with/without contrast. 2. ESR, BELTRAN 12, serum protein electrophoresis. 3. There is no indication for repeat EMG and nerve conduction study at this time. I do not see any indication for a lumbar puncture at this time either. 4. I think a medication such as duloxetine be very good for this patient as it may help pain, mood, and sleep. I would start with 30 milligrams in the evening and titrate from there. 5. Pain management will be making additional recommendations. Overall, I spent a total of 115 minutes with this case including review of records, review of MRI films, direct evaluation the patient at bedside, and discussion of the case with the patient at bedside, his who was at bedside, and Dr. Trini lama, including differential diagnosis and treatment options. History of Present Illness Reason for Consultation: The patient is a 58-year-old, who I was asked to see at the request of Dr. Logan, for neurologic consultation regarding chronic pain and other issues. Requesting Physician: Dr. Logan Attending Physician: Cuong Logan History of Present Illness I attempted to see the patient April 20 at 1100 but he was tied up with a procedure that would last about an hour. Patient has a history of type 1 diabetes for 40 years, having been not very well controlled over the last 3-5 years. There is no history of retinopathy or renal dysfunction. He also has a history of hypertension. In early December of 2018 he was admitted to the hospital for an episode of DKA. He was having chills and myalgias that time. His sugars were controlled better and his chills and myalgias improved considerably. By late January is myalgias returning in these were progressive over the course of February 2019. They consisted of tenderness and pain in the back both low and mid, neck, arms, thighs and calves. It was more myalgia/muscle than it was arthralgia. I performed an EMG and nerve conduction study on him February 24 and found a very mild underlying polyneuropathy involving predominantly sensory nerves. There were also some mild superimposed carpal tunnel syndromes. I did not find any active myopathy and no radiculopathy was seen. During the spring, CK, aldolase, CBC, Chem profile, TSH, Lyme antibody titers, and other tick-borne disease testing was all unremarkable. According to the patient's who I spoke with today by his hospital room, he has been having some cognitive issues of a mild, nonspecific nature it 1st starting at least 6 months ago but perhaps for the last year 2. He has clearly been worse since his episode of DKA. He stopped reading (was an avid reader) about 3 months ago. He is supposed to be searching for a new job in the [facility] [employer] [facility] [employer] but his would come home after work and find that he had not gotten anything accomplished throughout the day and using the computer was hard for him to do. She believes that he has been depressed and I felt that he was depressed when I saw him for the EMG February 24. The patient has been having some intermittent resting type tremor in his right upper extremity and some gait issues according to his . On a personal experience note: When I saw the patient for the EMG on February 24 he was in extreme pain and fatigue, hobbling and limping with his gait because of severe pains. He was very fatigued and the admitted to me he was in misery from the pain. When I saw him we went over his labs and saw that he had a low vitamin-D. I told him that vitamin-D replacement may make him feel little better and that may be contributing some to his achiness and fatigue. He apparently took 1 dose of vitamin-D later that day and spontaneously came in to see me in the office to tell me that he had no pain whatsoever, no limping or disabilities and was literally hopping around the waiting room showing me how all markedly he had improved on the vitamin-D. There was a complete dramatic change in about 24 hours. Patient has been hypersensitive to touch over the last couple of months even lig htly on certain areas of the skin on the shoulders, back, legs, or arms. This is inconsistent and variable date today and in different places. There is concerned that the patient has been depressed. At 1145 I did get to see the patient and interview and examine him. He believes that his hypersensitivity to touch is mainly in his feet and is getting progressively worse over the last 2 months. It is the tops and soles of his feet. He says he does not have hypersensitivity to touch in any where else but he does talk about his back and muscles being tender to palpate even lightly. He denies cervical and lumbar spine pain. It is his muscles that bother him not his joints (although his knees occasionally have some pain). He denies headache but does admit to having worse cognition over the last couple of months which she attributes to his lack of sleep. He is not sleeping well because of chronic pain mostly in his thoracic spine. He denies incontinence of urine, vision problems, tremor, stiffness, or balance problems. He refused blood test this morning because he felt that blood drawing is too painful for him. Patient was hospitalized on April 16 for generalized abdominal pain and muscle spasms in his mid back. CT scan of the abdomen and pelvis and chest were unremarkable. An MRI of the thoracic spine showed degenerative changes at C5-6 and C7-8 of a mild nature and not requiring surgery. No cord lesions and I reviewed these MRI films. Patient has had a polyp removed from a colonoscopy and found some gastritis on endoscopy. Laboratory studies revealed an unremarkable CBC and Chem profile, vitamin-D level of 81, CK of 29, TSH of 2.85, and an unremarkable Lyme antibody titer. Urinalysis was unremarkable also. Pain management saw the patient this morning but their recommendations are pending. Allergies Allergy/AdvReac Type Severity Reaction Status Date / Time Iodinated Contrast- Oral and Allergy Rash Verified 04/16/19 14:00 IV Dye Home Medications Home Medications Medication Instructions Recorded Confirmed Type insulin degludec [Tresiba 10 unit SUBCUT HS 02/23/19 04/16/19 History FlexTouch U-100] acetaminophen [Tylenol Extra 1,000 mg PO Q6H PRN 03/30/19 04/16/19 History Strength] cholecalciferol (vitamin D3) 1,000 unit PO DAILY 03/30/19 04/16/19 History [Vitamin D3] gabapentin 600 mg PO DIRECTED 03/30/19 04/16/19 History ibuprofen [Advil] 800 mg PO Q8H PRN 03/30/19 04/16/19 History insulin aspart U-100 [Novolog 0 units SC DIRECTED 03/30/19 04/16/19 History Flexpen U-100 Insulin] insulin degludec [Tresiba 15 unit SUBCUT QAM 03/30/19 04/16/19 History FlexTouch U-100] lisinopril 10 mg PO QAM 03/30/19 04/16/19 History ergocalciferol (vitamin D2) 50,000 unit PO WK 04/16/19 04/16/19 History [Vitamin D2] Patient History Medical History DKA (diabetic ketoacidoses) DVT prophylaxis Diabetes Diabetes type 1, uncontrolled HTN (hypertension) Leukocytosis No significant past surgical history Thrombocythemia Family History Father Heart disease [place] Ulcerative colitis Mother Autoimmune disease Social History Preferred Language: Serbian Communication Ability: Effective Beliefs That Will Affect Care: None marital status: Current Living Situation: Spouse current occupational status: unemployed and previously employed 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 That might be an issue." Hx Substance Use: No Review of Systems Constitutional: + chills, + body aches, + fatigue, + weakness, + anorexia and + weight loss; no fever Eyes: no diplopia, no eye pain and no worsening vision Ear, Nose, Mouth, Throat: no ear pain, no tinnitus, no hearing loss and no dysphagia Respiratory: no cough and no dyspnea Cardiovascular: no chest pain, no dyspnea and no palpitations Gastrointestinal: + abdominal pain, + nausea and + vomiting Genitourinary: no dysuria, no urinary frequency and no urinary incontinence Musculoskeletal: + back pain and + myalgia; no neck pain, no radicular pain, no muscle weakness and no muscle atrophy Integumentary: no rash and no lesions Neurologic: + generalized weakness and + numbness; no gait abnormality, no falls, no localized weakness, no tingling, no tremor(s), no abnormal movements, no dizziness, no headache(s), no abnormal speech, no behavioral changes, no confusion and no memory loss Psychiatric: + depression, + abnormal sleep pattern and + difficulty concentrating; no anxiety, no confusion and no hallucinations Endocrine: + fatigue; no flushing Hematologic / Lymphatic: no easy bleeding and no easy bruising Allergy / Immunological: no urticaria Physical Exam Physical Exam: The patient is right-handed. The patient is awake, alert, and attentive. Speech is normal without any aphasia or dysarthria. Mentation and thought processes are intact, with full orientation and normal fund of knowledge. Attention and concentration are normal. Mood is mildly down and affect is mildly flat. General appearance and grooming are reasonable but he is a little did show. Short and long-term memory are intact to conversation. Pupils are 4 mm bilaterally and reactive to light. Extraocular eye muscles are intact without nystagmus. Visual acuity and visual diaz seem normal grossly to confrontation. There are no deficits to sensation in the face in all 3 distributions of the fifth cranial nerve bilaterally. Corneal reflexes are positive bilaterally. Facial strength and symmetry was normal bilaterally. Hearing seems intact grossly to voice and finger rub bilaterally. Palate moves well without asymmetry. There is normal sternocleidomastoid and trapezius (shoulder shrug) strength bilaterally. Tongue is midline with good strength bilaterally. Neck has a full range of motion without discomfort. There are no cervical bruits bilaterally. There are no cranial or ocular bruits. Heart is without murmur. There is a regular rhythm and rate. Cervical and lumbar spine are nontender to palpation. Thoracic spine is markedly tender to very light palpation. Gait is narrow based with some arm swing, but he tends to walk cautiously and slowly. I would not say that it is an actual shuffle. I do not see the bradykinesia in general or specific masklike face. With outstretched arms there is no drift. There are no resting, postural, or action tremors. There is no ataxia with finger to nose testing. There is good facility in the hands. No other abnormal involuntary movements are noted. Motor strength is 5/5 diffusely in the arms bilaterally including deltoids, biceps, triceps, brachioradialis, wrist flexors and extensors, wet end helper, and intrinsic hand muscles. Motor strength is 5/5 diffusely in the legs bilaterally including hip flexors, quadriceps, hamstrings, gastrocnemius, tibialis anterior, tibialis posterior, and Peroneii muscles bilaterally. Toe extensors are normal and there is good bulk in the extensor digitorum brevis muscles bilaterally. The limbs have good tone without rigidity or spasticity. There is no atrophy noted in the muscles. Muscle bulk is normal, there is tenderness to palpation in most large muscles, no myotonia to percussion, and no fasciculations seen. Sensory examination reveals decreased sensation to touch in a stocking distribution to the mid lower legs bilaterally. Arms and face are spared Reflexes are 1/4 in the biceps, triceps, brachioradialis and quadriceps tendons bilaterally. Achilles tendon reflexes are absent bilaterally. Toes are downgoing with plantar stimulation bilaterally. Peripheral pulses are present and of normal quality distally in all 4 limbs. There is no peripheral edema noted in the limbs. Results & Data Vital Signs (Past 12 Hours) Vital Signs Temp Pulse Resp BP Pulse Ox 04/20/19 07:19 36.6 C 94 H 18 177/94 H 100 04/19/19 23:41 36.9 C 88 18 156/79 H 99
[2019-04-20] MEDS: BACLOFEN 10 MG TAB PO PRN (15:56)
[2019-04-20] MEDS ORDERED: HYDROmorphone INJ 0.5 MG/0.5 ML SYR IV STA (16:11)
[2019-04-20] MEDS ORDERED: GADOBUTROL 65ML VIAL IV PRN (17:13)
--- NOTE | 2019-04-20 17:28 | Magnetic Resonance Report ---
MRI OF THE BRAIN COMBO CLINICAL HISTORY: Gait disturbance. COMPARISON STUDY: No priors. TECHNIQUE: MRI of the brain was performed utilizing various T1 and T2-weighted sequences in the axial , sagittal, and coronal planes. Contrast-enhanced sequences were acquired following the administratio n of 7 cc of Gadavist. FINDINGS: Brain parenchyma: The brain parenchyma is normal in appearance. There is no hemorrhage or mass effect . There is no restricted diffusion to suggest acute ischemia. No enhancing mass lesion is identified on the postcontrast images. Hong-white matter differentiation is preserved. No extra-axial fluid isabela ection is seen. The cerebellar tonsils are normal in configuration. Ventricles, sulci, and cisterns: Normal in configuration. Pituitary and sella: Unremarkable. Intracranial vasculature: Normal flow voids are maintained at the skull base. Orbits: The bony orbits are grossly intact. Orbital contents are normal in appearance. Sinuses and mastoids: There is trace mucosal thickening within the ethmoid sinuses and the maxillary antra. The paranasal sinuses are otherwise clear. The mastoid air cells are well pneumatized. Calvarium: Unremarkable. Cervical cord: Partially visualized cervical spinal cord is normal in morphology and signal intensity . IMPRESSION: No intracranial abnormality is identified. Electronically signed by: Navjot Barriga M.D. 04/20/2019 5:27 PM
[2019-04-20] MEDS: TAPENTADOL HCL 50 MG TAB PO PRN (20:14)
[2019-04-20] MEDS: TAMSULOSIN HCL 0.4 MG CAP PO SCH (20:16)
[2019-04-20] MEDS ORDERED: DULOXETINE HCL 20 MG CAP PO SCH (21:00)
--- NOTE | 2019-04-20 21:12 | Hospitalist Progress Note ---
Date of Service April 20, 2019 Assessment & Plan (1) Back pain, thoracic: Present since January 2019. Extensive work-up to date without spine/bone etiology found. CTA chest w/o PEs or other intra-thoracic pathology. MRI t-spine with minimal DJD. Most of his pain is myofascial in origin. Repeat lyme's testing, CPK, sed rate, crp, vitamin D level, and testosterone level - all normal/negative. Total testosterone level is borderline low but doubt causing current symptomatology. Aldolase level in January 2019 was normal. NCS/EMGs were normal earlier this year. See "myalgia" below. Appreciate neurology, pain management, and accupuncture consultations today. Appreciat therapy consult. Dr Borrego performed accupuncture on patient w/o incident; patient experienced transient improvement in pain especially in back per Dr Borrego. Would really like to get a B1 level, iron studies and BELTRAN on patient if he would allow. WEAN OFF dilaudid and all narcotics. Start cymbalta 20mg HS. (2) Myalgia: Extensive w/u to date negative including CPK, sed rate, CRP, lyme's testing, vitamin D level, prior cortisol level, TSH, aldolase, etc. Imaging w/o specific etiology. NO response to NSAIDs, tylenol, IV steroids. Temporary/fleeting response to narcotics reported by patient - but poor choice for this pain. Normal sed rate/crp argues against autoimmune disease and inflammatory diseases of the muscles. To be complete will send an BELTRAN but patient refused this blood work today. Will try to get the BELTRAN along with B1 level and iron studies. Pain management, neurology, and PCP all recommended initiation of cymbalta. His pain appears to be myofascial in origin. Patient willing to do so. Start 20mg HS. MRI brain today w/ contrast was NORMAL. (3) Abdominal pain, generalized: Present for about 2+ months. Extensive work-up thus far including CT abd/pelvis, liver u/s, EGD, colonoscopy etc all negative/normal and w/o specific etiology. TSH and cortisol in recent past normal. Had had severe constipation over last 1-2 months - radiographically and clinically resolved. Much of his pain is gas, cramps, etc. Tried bentyl w/o improvement in symptoms. Imaging shows thickening of his abdominal wall - this is likely from 30+ years of insulin injection (lipodystrophy?). Duodenal bx NEGATIVE for celiac. Gastric bx with gastritis only -- will Rx PPI x 1 month. 1 polyp seen on colonoscopy today; no other sinister pathology. Mental health issues could be contributing to his abd pains/GI symptoms. Wean narcotics off. (4) Mood disorder: I believe that patient has severe depression - likely 6+ months in duration - compounded by significant insomnia and anxiety. I believe that these are playing some role in his physical symptoms. To start cymbalta 20mg tonight. He is linked with counselor as outpatient. Also has had marital counseling. May need psychiatry to follow him as well. (5) Insomnia: Severe. Has tried NUMEROUS meds w/o efficacy. Would NOT use ambien, lunesta, etc. Has tried trazodone and elavil - both caused severe sedation. Cont doxepin 25mg HS prn. Could increase if needed. (6) Vitamin D deficiency: resolved level 81 stop all replacement (7) HTN (hypertension): BPs remaining high despite lisinopril. Increase to 20mg/day. (8) Type 1 diabetes mellitus: with hypoglycemia but no further lows. due to anorexia and weight loss his insulin requirements have dropped considerably. of note - cortisol level earlier this year was normal. control today again acceptable. (9) Enlarged prostate: symptoms are not disabling and thus he is declining his flomax (10) Colonic polyp: as seen on colonoscopy today - s/p removal await path (11) Gastritis: PPI x 1month (12) Diverticulosis: as seen on colonoscopy today fiber supplement daily (13) Cognitive impairment: as mentioned by . due to mood disorder/depression?? organic work-up - b12/tsh/etc - normal. send vitamin B1 level to be complete. consider neuropsych testing as outpatient. MRI brain wnl today. (14) DVT prophylaxis: lovenox 40mg daily updated his multiple times today spoke with Dr Borrego, Dr Ricks multiple times today Subjective patient had accupuncture this am and he did experience some transient pain relief with such, especially in his back. seen by neurology, pain management, and his PCP. all recommending initiation of cymbalta. counseling and psychiatry consultation also recommended by PCP. patient still requesting IV dilaudid for pain. he IS willing to start cymbalta. states that doxepin did not help sleep but staff report he did sleep for several hours especially early on in the night. he reports having woken up about 4am with severe pain. Review of Systems Constitutional: no fever, no chills and no anorexia Respiratory: no dyspnea Cardiovascular: no chest pain Gastrointestinal: + abdominal pain (bentyl did not help abdominal discomfort); no nausea and no vomiting Physical Exam Constitutional: + frail appearing; no acute distress (was sleeping in bed upon my arrival), no altered mental status and + not well groomed Respiratory: normal respiratory effort, lungs clear to auscultation Cardiovascular: Rate/Rhythm: regular rate and regular rhythm Heart Sounds: normal S1 and normal S2; no murmur Vessels: posterior tibial pulses present and dorsalis pedis pulses present; no JVD Extremities: no edema Gastrointestinal (Abdomen): Inspection/Auscultation: abdomen not distended, no abdominal wall ecchymosis and no visible herniation Percussion/Palpation: + abdomen tender (diffusely with minimal palpation) and abdomen soft; no hepatosplenomegaly and no hernia Musculoskeletal: Spine: no thoracic spinal tenderness and no lumbar spinal tenderness Skin: no rashes, warm and dry Neurologic: no focal motor deficits Motor/Sensory: no tremor Psychiatric: Orientation: alert and oriented x 3 Affect: + depressed affect and + flat affect Results & Data Vital Signs (Past 12 Hours) Vital Signs Temp Pulse Resp BP Pulse Ox 04/20/19 19:55 37.0 C 86 18 174/81 H 99 Laboratory Results all BSGs <200 MRI brain - normal, no pathology seen. PG Care Time/CCT Total # of Minutes Spent Total Time Spent with Patient: Total time spent is greater than 50% in coordination of care (as documented) at patient's floor/unit and/or counseling patient: (1) Insomnia Insomnia type: unspecified Qualified Code(s): G47.00 - Insomnia, unspecified (2) Type 1 diabetes mellitus Diabetes mellitus complication status: with other specified complication Qualified Code(s): E10.69 - Type 1 diabetes mellitus with other specified complication (3) Gastritis Chronicity: acute Gastritis bleeding: without bleeding Gastritis type: unspecified gastritis Qualified Code(s): K29.00 - Acute gastritis without bleeding (4) Back pain, thoracic Back pain laterality: bilateral Chronicity: unspecified Qualified Code(s): M54.6 - Pain in thoracic spine (5) HTN (hypertension) Hypertension type: essential hypertension Qualified Code(s): I10 - Essential (primary) hypertension (6) Colonic polyp Colon location: unspecified part of colon Colon polyp type: unspecified Qualified Code(s): K63.5 - Polyp of colon
[2019-04-20] MEDS: INSULIN GLARGINE SOLOSTAR 100 UNITS/ML 3 ML PEN SC SCH (22:10)
[2019-04-20] MEDS: NORMOSOL-R 1,000 ML IV SCH (22:45)
[2019-04-21] MEDS: HYDROmorphone INJ 0.5 MG/0.5 ML SYR IV PRN ×2 (01:58→08:33)
[2019-04-21] MEDS: TAPENTADOL HCL 50 MG TAB PO PRN (06:53)
[2019-04-21] MEDS: ONDANSETRON INJ 2 MG/ML 2 ML VIAL IV PRN (08:40)
[2019-04-21] MEDS ORDERED: LISINOPRIL 20 MG TAB PO SCH (09:00)
[2019-04-21] MEDS: PANTOprazole 40 MG TAB PO SCH (09:20)
[2019-04-21] MEDS: INSULIN ASPART 100 UNITS/ML 3 ML PEN SC SCH ×2 (10:00→13:11)
--- NOTE | 2019-04-21 10:58 | Neurology Progress Note ---
Date of Service April 21, 2019 Assessment & Plan (1) Myalgia: Patient has had unusual , severe, persistent myalgias centered particularly around the thoracic spine bilaterally but also in other areas of his arms and legs. His muscles are tender to palpate. Today he is much improved compared to yesterday. Neurologic examination reveals no focal findings, meningeal signs, or significant encephalopathy. EMG and nerve conduction studies February 24 of this year did not see any active myopathy. The was no radiculopathy but he did have some mild underlying polyneuropathy. Laboratory studies have been unrevealing so far and I do not have any good handle as to why he has this much myalgia and muscle tenderness (even to very light touch). I suppose I cannot entirely exclude an autoimmune disease. Interestingly, both of his parents have had problems with autoimmune diseases. He did refuse blood tests this morning. He does not specifically complain all arthralgias. He does have fatigue and weight loss. His has noted some tremors and gait issues intermittently in the past. I martha lara do not see anything specifically consistent with Parkinson's disease today. He does not have overt bradykinesia, rigidity or cogwheeling comma resting tremor, or a specific Parkinson's gait. MRI of the brain was normal with no acute findings or old small vessel ischemic changes. (2) Diabetic polyneuropathy: Patient has a very mild underlying generalized polyneuropathy by EMG testing. It involves sensory greater than motor fibers and is likely consistent with mild diabetic polyneuropathy. His hypersensitivity to touch in the feet has been a new phenomenon over the last 2 or 3 months. This exquisite hypersensitivity could be consistent with very about polyneuropathy. Honestly, however, from a neurologic standpoint in my experience I do not see this type of exquisite muscle tenderness or hypersensitivity to touch without other obvious changes on exam and on EMG. (3) Carpal tunnel syndrome, bilateral: Patient was noted to have mild carpal tunnel syndrome by EMG testing in February of this year. There were mild enough that we did not feel there was any additional testing or treatment warranted at this time. (4) Depression with anxiety: Although the patient downplays this (or admits to some mild depression because of his general condition and lack of sleep) I think he is significantly depressed and his symptomatology as noted above could be secondary to depression and anxiety. 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 He tells me today that he is made a decision not to pursue job [employer] that he was applying for. This is because of his physical condition. Overall, I suspect this could be his main problem from which the other issues stem. Interestingly, I have witnessed him twice now going from misery like he was yesterday with his symptoms to completely symptom-free 24 hours later (or at least markedly better as he is today). I cannot explain this neurologically otherwise. (5) Cognitive impairment: Patient has some mild cognitive impairment which is not readily appreciated with simple conversation. There may be a pseudodementia from depression present as well. Recommendations: 1. ESR, BELTRAN 12, serum protein electrophoresis. 2. There is no indication for repeat EMG and nerve conduction study at this time. I do not see any indication for a lumbar puncture at this time either. 3. I think a medication such as duloxetine be very good for this patient as it may help pain, mood, and sleep. I would start with 30 milligrams in the evening and titrate from there. 4. Pain management will be making additional recommendations. Overall, I spent a total of 25 minutes with this case including review of records, review of MRI films, direct evaluation the patient at bedside, and discussion of the case with the patient at bedside, his who was at bedside, and Dr. Logan, including differential diagnosis and treatment options. Subjective The patient feels markedly better today with less aches and pains. He is able to walk and function much better. He is in a better mood. MRI of the brain was obtained and is unremarkable. I have reviewed these films with the patient at bedside. Physical Exam Physical Exam: He is awake and alert. Speech is without aphasia or dysarthria. Mood and affect seem somewhat improved today. Thought processes are intact. Extraocular eye muscles are intact without nystagmus and there is no facial droop. Gait is quite normal with good arm swing. Strength is symmetrical in the limbs the and there are no abnormal involuntary movements. Results & Data Vital Signs (Past 12 Hours) Vital Signs Temp Pulse Resp BP Pulse Ox 04/21/19 07:05 36.5 C 89 18 135/80 100 04/20/19 23:17 36.8 C 92 H 18 156/88 H 98 Diagnostic Findings MRI OF THE BRAIN COMBO CLINICAL HISTORY: Gait disturbance. COMPARISON STUDY: No priors. TECHNIQUE: MRI of the brain was performed utilizing various T1 and T2-weighted sequences in the axial, sagittal, and coronal planes. Contrast-enhanced sequences were acquired following the administration of 7 cc of Gadavist. FINDINGS: Brain parenchyma: The brain parenchyma is normal in appearance. There is no hemorrhage or mass effect. There is no restricted diffusion to suggest acute ischemia. No enhancing mass lesion is identified on the postcontrast images. Hong-white matter differentiation is preserved. No extra-axial fluid collection is seen. The cerebellar tonsils are normal in configuration. Ventricles, sulci, and cisterns: Normal in configuration. Pituitary and sella: Unremarkable. Intracranial vasculature: Normal flow voids are maintained at the skull base. Orbits: The bony orbits are grossly intact. Orbital contents are normal in appearance. Sinuses and mastoids: There is trace mucosal thickening within the ethmoid sinuses and the maxillary antra. The paranasal sinuses are otherwise clear. The mastoid air cells are well pneumatized. Calvarium: Unremarkable. Cervical cord: Partially visualized cervical spinal cord is normal in morphology and signal intensity. IMPRESSION: No intracranial abnormality is identified. Electronically signed by: Navjot Barriga M.D. 04/20/2019 5:27 PM
--- NOTE | 2019-04-21 18:21 | Pain Management Progress Note ---
Date of Service April 21, 2019 Assessment & Plan (1) Myalgia: * Continue Cymbalta 20 mg hs and increase dose as tolerated q weekly if no side effects. * Avoid opiates. * Repeat rheumatologic work up in 3 months. * Consider referral to rheumatology specialty with expertise in fibromyalgia. Present on Admission?: Yes (2) Depression with anxiety: * Keep follow up with psychiatry and councillor. Present on Admission?: Yes Subjective Seen for follow up today. Reports slightly less myofascial pain. Has been ambulatory. Still experiencing insomnia and waking up when changes position during sleep. Reports no side effects form Cymbalta 20 mg last night. Physical Exam 2 Constitutional: no acute distress Psychiatric: Orientation: alert and oriented x 3 Mood: + depressed mood and + anxious mood
[2019-04-22] MEDS ORDERED: ERGOCALCIFEROL 50,000 UNITS CAP PO SCH (09:00)
--- NOTE | 2019-04-26 07:10 | Discharge Summary ---
Date of Service date of admission - April 16, 2019 date of discharge - April 21, 2019 Admission HPI Per Admitting Provider 58-year-old male with long-standing Type 1 DM who presents to the ER with complaints of muscular paraspinous back pain and intense abdominal pain more left-sided than right. Patient's been wrestling with infrequent bowel habits as an outpatient and did have an outpatient CT scan on 13 April showing large cecum with moderate stool burden in his abdomen. No other intra-abdominal pathology was seen. Patient states that his back pain began as intrascapular thoracic axial back pain with then progressed towards muscular back pain of the latissimus dorsi and serratus. 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 He also feels left side of his abdomen is more distended or and tender even to light touch. In the emergency department the patient required parenteral opiate pain relief. Laboratories initially did not show any significant abnormalities. CT angiogram of his chest was without pulmonary embolism, or other significant pathology. CT scan of the abdomen pelvis with oral contrast shows skin thickening and subcutaneous fat infiltration of the lower anterior abdominal wall more so on the left most likely related to medication administration. Previous constipation was resolved. Patient is currently pending a MRI scan of his spine as ordered by emergency attending. Principal Diagnosis diffuse myofascial pain Discharge Exam Constitutional + frail appearing; no acute distress (was sleeping in bed upon my arrival) and no altered mental status ENMT external ear and nose normal, oropharynx normal Neck trachea midline, no thyromegaly Respiratory normal respiratory effort, lungs clear to auscultation Cardiovascular Rate/Rhythm: regular rate and regular rhythm Heart Sounds: normal S1 and normal S2; no murmur Vessels: posterior tibial pulses present and dorsalis pedis pulses present; no JVD Extremities: no edema Gastrointestinal (Abdomen) Inspection/Auscultation: abdomen not distended, no abdominal wall ecchymosis and no visible herniation Percussion/Palpation: + abdomen tender (diffuse, but discomfort not as severe as on previous exams) and abdomen soft; no hepatosplenomegaly and no hernia Musculoskeletal Spine: no thoracic spinal tenderness and no lumbar spinal tenderness there is still myofascial pain in the paraspinal muscles of the back, shoulders, thighs, etc but not as severe as previous exams Skin no rashes, warm and dry Neurologic no focal motor deficits Motor/Sensory: no tremor Psychiatric Orientation: alert and oriented x 3 Affect: + depressed affect and + flat affect Discharge Data Allergies Allergy/AdvReac Type Severity Reaction Status Date / Time Iodinated Contrast- Oral and Allergy Rash Verified 04/16/19 14:00 IV Dye Consultations 1. gastroenterology - Dangelo Galindo DO 2. neurology - Janes Ricks MD 3. pain management - Ben Avila MD 4. PT 5. OT 6. diabetes education Procedures Performed 1. EGD with Biopsy - Dangelo Presley Case, DO * mild gastritis seen - biopsied * normal esophagus * normal duodenum - biopsied to rule out celiac disease 2. Colonoscopy with Polypectomy - Dangelo Presley Case, DO - One 12 mm polyp in the ascending colon, removed piecemeal using a hot snare. Resected and retrieved. Clip (MR conditional) was placed. - Diverticulosis in the sigmoid colon. - Non-bleeding internal hemorrhoids. 3. acupuncture - Emily Borrego DO Ordered Studies 1. CT abd pelvis oral and IV contrast - IMPRESSION: 1. Skin thickening and subcutaneous fat infiltration in the lower anterior abdominal wall more so on the left. This most likely relates to medication administration. Correlate clinically to exclude cellulitis. 2. Fluid in the colon suggests a diarrheal or cathartic state. No stool burden. No colonic distention. No bowel obstruction. 3. Chronic bladder outlet obstruction secondary to prostatomegaly. 2. CTA chest - no PE; no pneumonia. 3. MRI thoracic spine - IMPRESSION: Mild degenerative changes in the midthoracic spine from T5-6 through T7-8 with mild contouring of the spinal cord. No evidence of spinal cord impingement. No neural foraminal narrowing. 4. u/s of the liver - no acute process. 5. MRI brain - normal, no intra-cranial pathology. Hospital Course (1) Back pain, thoracic: Present since January 2019 after he had been swimming and doing lots of physical activity. Extensive work-up to date without spine/bone etiology found. Only mild DJD on thoracic spine on imaging but this would not explain his symptoms. CTA chest w/o PEs or other intra-thoracic pathology. Most of his pain appears to be myofascial in origin. Multiple lyme's testing, CPK, sed rate, CRP, vitamin D level, and testosterone level - all normal/negative. Total testosterone level is borderline low but doubt causing current symptomatology. Aldolase level in January 2019 was normal. NCS/EMGs were normal earlier this year - completed at [facility] Neurology office. See "myalgia" below. Dr Borrego performed acupuncture on patient without incident; patient experienced transient improvement in pain especially in back per Dr Borrego. The patient had limited or incomplete relief of his pain with steroids, muscle relaxers, tylenol, NSAIDs, and narcotics. With respect to narcotics he would have 1-2 hours, at most, of pain relief and then pain would return. About 24 hours prior to discharge the patient was finally agreeable to taking cymbalta. He was initiated on 20mg once daily. This will need to be titrated as an outpatient by his PCP, pain management, or neurology. (2) Myalgia: Extensive w/u to date negative including CPK, sed rate, CRP, lyme's testing, vitamin D level, cortisol level, TSH, aldolase, etc. Imaging w/o specific etiology. NO response to NSAIDs, tylenol, IV steroids, etc. Temporary/fleeting response to narcotics reported by patient - but poor choice for this pain and not an option long-term. Normal sed rate/crp argues against autoimmune disease and inflammatory diseases of the muscles. Looking through his records it does not appear he has had an BELTRAN, vitamin B1 level, or iron studies. These were ordered late in his stay but he declined the blood draw for such. Pain management, neurology, and PCP all recommended initiation of cymbalta. His pain appears to be myofascial in origin. Patient initially did not want to initiate the cymbalta but finally was agreeable to such. Started cymbalta 20mg HS. MRI brain today w/ contrast was NORMAL. It appears that the patient is quite depressed and has anxiety as well. He also has had severe insomnia for several months. He was counseled that his depression & insomnia make his pains much worse and that treating the depression/insomnia were essential. He will continue with outpatient counseling, acupuncture, and physical therapy. (3) Abdominal pain, generalized: Present for about 2+ months. Extensive work-up thus far including CT abd/pelvis, liver u/s, EGD, colonoscopy etc all negative/normal and w/o specific etiology. TSH and cortisol in recent past normal. Had had severe constipation over last 1-2 months - radiographically and clinically resolved. Much of his pain is gas, cramps, etc. He also has pain across the abdominal wall in the musculature. The latter would wax/wane while hospitalized. He tried bentyl w/o improvement in symptoms. Imaging shows thickening of his abdominal wall - this is likely from 30+ years of insulin injections (lipodystrophy?). Duodenal bx NEGATIVE for celiac. Gastric bx with gastritis only -- will Rx PPI x 1 month. 1 polyp seen on colonoscopy; no other sinister pathology. Mental health issues could be contributing to his abd pains/GI symptoms. Hopefully the GI symptoms will improve with time. (4) Mood disorder: I believe that the patient has severe depression - likely 6+ months in duration - compounded by significant insomnia and anxiety. I believe that these are playing some role in his physical symptoms. Started cymbalta 20mg daily while hospitalized. He is linked with counselor as outpatient. Also has had marital counseling. May need psychiatry to follow him as well for medication management. (5) Insomnia: Severe. Has tried NUMEROUS meds w/o efficacy. Would NOT use ambien, lunesta, etc due to the potential for tolerance/dependence. Has tried trazodone and elavil - both caused severe sedation. Initiated on doxepin 25mg HS prn. He did not have untoward side effects. (6) Vitamin D deficiency: resolved. initial level was 15 in December 2018. Current level is 81. stop all replacement. (7) HTN (hypertension): BPs were high despite his usual dose of lisinopril. Increased to 20mg/day while hospitalized. (8) Type 1 diabetes mellitus: Due to anorexia and weight loss his insulin requirements have dropped considerably over the last 1-2 months. He had excellent control while here. He did experience an occasional low. Of note - cortisol level earlier this year was normal. He will continue on Tresiba 10 units HS and novolog w/ meals. (9) Enlarged prostate: symptoms are not disabling and thus he is declining his flomax for now. (10) Colonic polyp: as seen on colonoscopy - s/p removal path pending (11) Gastritis: PPI x 1 month biopsy did not show H. pylori (12) Diverticulosis: as seen on colonoscopy fiber supplement daily (13) Cognitive impairment: as mentioned by . due to mood disorder/depression?? organic work-up - b12/tsh/etc - normal. consider neuropsych testing as outpatient. MRI brain wnl. recommended 200mg twice daily of thiamine for 1 month. Total Time Total Time Spent Total Time Spent (In Minutes): 45 Total Time Includes: Examination of the Patient, Discharge Planning, Medication Reconciliation and Communication With Other Providers Discharge Plan Discharge Items Patient Disposition: Home - Self-Care Reason For Visit: intractable abdominal pain and back pain Discharge Diagnosis: abdominal pain. back pain. muscle pain of various other locations. Discharge Goals: Decrease discomfort, Diagnostic testing, Improve disease con trol, Improve function, Improve nutritional status, Learn about illness and Therapeutic intervention Activity: As commented below Activity Comment: activity as tolerated; avoid any activity that makes your symptoms worse Lifting: Gradually increase as tolerated Sexual Activity: When tolerated Exercise/Sports: Wait until after follow-up appointment Driving/Machine Use: Resume 3 days after discharge Non-emergency contact: Primary Care Provider, Specialist and Neurologist Call non-emergency contact if: you have any medication questions, your symptoms worsen, your pain is not controlled, your pain is worsening and your temperature is above 100.5 Follow-up/Referrals: Mike Sage MD [Primary Care Provider] - (Please, follow up with Dr. Sage. A nurse from this office will call you with the appointment information. If you have any questions, call the office at [phone].) Spenser Ricks III, MD [Physician] - (see Dr Ricks within 1 month) Ben Avila MD, [facility] [Anesthesiologist] - (see Dr Avila within 2 weeks (phone - [phone]) ) Diet: Carb Count or DM1 Addtl Provider Instructions: Dr Sanchez, You were admitted and treated for severe abdominal pain, back pain, and muscle pain in various locations. The following tests were done - MRI brain, MRI thoracic spine, CT scans of the chest / abdomen / pelvis, liver ultrasound, and numerous labs. The imaging tests were normal; they did not show any problems that would contribute to your pain. Your sed rate, crp, lyme's testing, cpk muscle test, and vitamin D levels returned normal. Prior testing of TSH level and cortisol were normal. Dr Mateo warren [facility] performed an upper endoscopy; this showed very minimal amount of gastritis (irritation) of your stomach. Biopsies ruled out celiac disease. Your colonoscopy showed internal hemorrhoids, mild diverticulosis, and a small polyp but NO cancer. Jeniffer Ricks, [place], and Elmo saw you in consult for your pain. Dr Borrego performed acupuncture with some relief of pain. It appears that your back pains and other muscle pains are due to myofascial pain. This is pain in the muscle itself causing them to be quite painful and sore. Myofascial pain can be severe and most times does NOT respond to steroids or narcotics. It often responds/improves with agents like gabapentin, lyrica, cymbalta, and others. The exact cause of your abdominal pain is uncertain at this time. At this time we recommend - 1. cymbalta (duloxetine) 20mg once daily at bedtime. Your muscle pain relief should hopefully begin in the next 1-2 weeks. This medication will also help your moods; that will take up to [address] Avila, Dr Ricks, or Dr Sage can titrate the dose for optimal relief of symptoms. 2. doxepin 25mg at bedtime for sleep. 3. ongoing acupuncture with Dr Borrego. Her office number is [phone]. 4. physical therapy at [facility] @ the [facility] office. For your type of ailments please consider seeing Mr Hermes Jackson. PT will really help your symptoms and help with your deconditioning. 5. continue the counseling that you have been receiving for your depression. 6. for the small amount of gastritis found on upper endoscopy please take pantoprazole 40mg once daily x 1 month. You can stop after that. 7. thiamine 200mg twice daily x 1 month in the event you have thiamine (vitamin B1) deficiency. Thiamine deficiency can cause memory/cognitive issues, various aches/pains, etc. 8. stop any vitamin D supplement as your vitamin D level was quite high at 81. 9. INCREASE your lisinopril to 20mg once a day for blood pressure control. 10. LOWER your Tresiba to 10 units once daily. Titrate back upwards if necessary for optimal diabetes control. 11. OK to use tylenol, motrin, and/or heat for any additional pain relief. 12. please take a fiber supplement and probiotic every day. These may help your digestive ailments / pain and also prevent constipation. Follow-up -- * please see Dr Sage within the next 5 days * see Dr Avila and Dr Ricks within the next 2-3 weeks at the latest * see Dr Borrego early next week for additional acupuncture * recommend physical therapy at [facility] Return to [facility] if -- * your pain is uncontrolled despite using all of the above modalities for pain relief * you have worsening abdominal pain, difficulty eating, vomiting, severe nausea * you have fevers over 100.5 degrees * any other concerns Prescriptions: New doxepin 25 mg Capsule 25 mg PO HS PRN (Reason: insomnia/sleep) Qty: 30 RF: 1 pantoprazole 40 mg Tablet,Delayed Release (Dr/Ec) 40 mg PO QAM Qty: 30 RF: 0 duloxetine 20 mg Capsule,Delayed Release(Dr/Ec) 20 mg PO QPM Qty: 30 RF: 2 thiamine HCl (vitamin B1) 100 mg tablet 200 mg PO BID Qty: 120 RF: 0 lisinopril 20 mg tablet 20 mg PO DAILY Qty: 30 RF: 5 Continued Tresiba FlexTouch U-100 100 unit/mL (3 mL) Insulin Pen 10 unit SUBCUT HS RF: 0 ibuprofen [Advil] 200 mg Tablet 800 mg PO Q8H PRN (Reason: Pain) RF: 0 Novolog Flexpen U-100 Insulin 100 unit/mL insulin pen SC DIRECTED RF: 0 acetaminophen [Tylenol Extra Strength] 500 mg Tablet 1,000 mg PO Q6H PRN (Reason: Pain) Qty: 0 RF: 0 Discontinued gabapentin 600 mg tablet 600 mg PO DIRECTED RF: 0 cholecalciferol (vitamin D3) [Vitamin D3] 1,000 unit Capsule 1,000 unit PO DAILY RF: 0 Tresiba FlexTouch U-100 100 unit/mL (3 mL) insulin pen 15 unit subcut QAM RF: 0 ergocalciferol (vitamin D2) [Vitamin D2] 50,000 unit capsule 50,000 unit PO WK RF: 0 Visit Report Forms: Smoking Cessation Stand-Alone Forms: My [facility], Opioid Pain Management, Work/School Release (Inpt) Krames/Other Patient Handouts: Safety Back Into and Out Bed Discharge Orders: Discharge Order (Routine); Ordered 04/21/19 Ordered By: Cuong Logan Admission Data Admit Date/Time: 04/16/19 14:32 Attending Provider: Cuong Logan Admit Provider: Sherman Tony Primary Care Provider: Mike Sage Other Providers: Dangelo Galindo ; Ben Avila Emile Pierre III Service: Surgical Services Other Interventions: Discharge Summary Assessment (RN) Last Done: 04/21/19 13:04 Pending Studies at Discharge: No DC Date/Time DO NOT enter until pt leaves facility: 04/21/19 14:10
== END 2019-04-21 14:10 | disposition home or self-care (01) | DRG 552 ==
LOC: ED 09:47 → SUATTDRO 14:32 → 4E 14:32 → 4W 04-20 14:13 → 3E 04-20 15:48

== ENCOUNTER 2019-07-11 13:22 | Observation (INO) ==
[2019-07-11] MEDS ORDERED: SODIUM CHLORIDE 0.9% 1000ML 1,000 ML IV SCH (13:45)
--- NOTE | 2019-07-11 13:54 | XRay Report ---
XR chest 1V portable CLINICAL HISTORY: weakness COMPARISON STUDY: 04/16/2019 FINDINGS: The cardiac and mediastinal contours are normal. There is no evidence of focal pulmonary co nsolidation. There is no evidence of failure. No pleural effusions are visualized.[ IMPRESSION: No active disease in the chest. Electronically signed by: Williams Jacques M.D. 07/11/2019 1:53 PM
[2019-07-11 14:07] LABS: Basophils # (auto) 0.02 K/uL (0-0.2); Basophils % (auto) 0.3 %; Eosinophils # (auto) 0.09 K/uL (0-0.5); Eosinophils % (auto) 1.5 %; Hematocrit (blood only) 39.6 % (42-52); Hemoglobin 13.9 g/dL (14.0-18.0); Immature Granulocytes # (auto) 0.02 K/uL (0.00-0.02); Immature Granulocytes % (auto) 0.3 %; Lymphocytes # (auto) 1.53 K/uL (1.2-3.4); Lymphocytes % (auto) 25.9 %; Mean Corpuscular Hemoglobin 31.1 pg (25-34); Mean Corpuscular Hgb Conc 35.1 g/dL (32-36); Mean Corpuscular Volume 88.6 fL (80-100); Mean Platelet Volume 10.2 fL (7.4-10.4); Monocytes # (auto) 0.83 K/uL (0.11-0.59); Neutrophils # (auto) 3.42 K/uL (1.4-6.5); Platelet Count 262 K/uL (130-400); RDW Coefficient of Variation 12.8 % (11.5-14.5); RDW Standard Deviation 41.5 fL (36.4-46.3); Red Blood Count 4.47 M/uL (4.7-6.1); White Blood Count 5.91 K/uL (4.8-10.8)
[2019-07-11 14:17] LABS: iSTAT Creatinine 1.1 mg/dl (0.6-1.3); iSTAT Hemoglobin 12.9 g/dl (14.0-18.0); iSTAT Ionized Calcium 1.23 mmol/l (1.12-1.32)
[2019-07-11 14:27] LABS: Alanine Aminotransferase 32 U/L (12-78); Albumin Level 3.6 gm/dl (3.4-5.0); Aspartate Aminotransferase 17 U/L (15-37); BUN Creatinine Ratio 12.1 (10-20); Blood Urea Nitrogen 14 mg/dl (7-18); Calcium 9.5 mg/dl (8.5-10.1); Carbon Dioxide 25 mmol/L (21-32); Chloride 102 mmol/L (98-107); Creatinine Clr Calc Pharmacy 69.2 ml/min; Est GFR (African American) 80.6; Est GFR (Non-African American) 69.5; Glucose 131 mg/dl (70-99); Sodium 136 mmol/L (136-145)
[2019-07-11 14:37] LABS: Albumin Globulin Ratio 1.2 (0.9-2); Alkaline Phosphatase 91 U/L (45-117); Bilirubin,Total 0.4 mg/dl (0.2-1); Creatine Kinase 29 U/L (39-308); Creatine Kinase MB < 1.0 ng/ml (0.5-3.6); Globulin 3.1 gm/dl (2.5-4.0); Total Protein 6.7 gm/dl (6.4-8.2); Troponin I < 0.015 ng/ml (0-0.045)
--- NOTE | 2019-07-11 14:46 | CT Scan Report ---
HEAD CT NONCONTRAST CT DOSE: 729.78 mGycm HISTORY: Altered mental status. TECHNIQUE: Multiaxial CT images of the head were performed without the use of intravenous contrast. A utomated exposure control was utilized for this study. A dose lowering technique was utilized adheri ng to the principles of ALARA. Comparison: Brain MRI 04/20/2019. Findings: Mild mucosal thickening within the ethmoid air cells and sphenoid sinuses.. The mastoid air cells are clear. The calvarium and skull base are intact. The ventricles and sulci are within normal limits. There is no mass, hematoma, midline shift, or acute infarct. Impression: No acute intracranial abnormality. Electronically signed by: Umair Stark M.D. 07/11/2019 2:45 PM
[2019-07-11] MEDS ORDERED: SODIUM CHLORIDE 0.9% 1000ML 1,000 ML IV ONE (15:28)
--- NOTE | 2019-07-11 16:52 | History & Physical Report ---
Date of Service July 11, 2019 Assessment & Plan (1) Hypotension: Patient with long-standing history of orthostatic hypotension. Most likely secondary to autonomic dysfunction in setting of type 1 diabetes as well as medication effects, Cymbalta, Remeron, gabapentin. Blood pressure presently 169/96. Also suspect small component of dehydration and patient with recent diarrheal illness and poor oral intake. -IV hydration. Normal saline at 125 mL/h x 2 L -Electrolyte repletion as needed -PT and OT assessment -Caution patient about standing up rapidly -Fall precautions -Medication adjustments as described below Present on Admission?: Yes (2) Diabetic polyneuropathy: Patient with approximately 6-month history of dysesthesias. Suspect that this may be secondary to treatment-induced diabetic neuropathy. Patient with previously poorly controlled type 1 diabetes with an A1c of 16.9% in December 2018. Most recent hemoglobin A1c 7.4% in April. Rapid correction of A1c as well as timing of symptom onset support treatment-induced diabetic neuropathy. Possible component of critical illness polyneuropathy as well. Must also consider medication effects as well as psychosocial factors contributing to overall clinical picture. Patient was previously on quite high doses of gabapentin and Cymbalta which is currently being weaned under the guidance of his primary care physician. If this is indeed treatment-induced diabetic neuropathy the symptoms should be self-limited. I am uncertain if any further diagnostic work-up should be pursued to confirm or refute this diagnosis. -Continue Cymbalta at decreased dose. 60 mg p.o. every morning and 30 mg p.o. nightly. Goal to decrease to 30 mg p.o. twice daily -Continue gabapentin 600 mg p.o. twice daily -Check gabapentin level -Continue Remeron 7.5 mg p.o. nightly. May consider changing to every other night with plans to ultimately discontinue. -Pain management consultation appreciated Present on Admission?: Yes (3) Type 1 diabetes mellitus: Blood sugar presently 131 -Continue Tresiba 15 mg twice daily -NovoLog sliding scale -Glycemic management consultation appreciated -Check hemoglobin A1c -Type 1 diabetes diet Present on Admission?: Yes (4) Depression with anxiety: Chronic. Stable. -Cymbalta and Remeron and adjust doses Present on Admission?: Yes (5) HTN (hypertension): Blood pressure variable, most likely secondary to autonomic dysfunction as well as medication effects. Presently not on any antihypertensive agents -Continue to monitor -Decreasing medications, Cymbalta and Remeron as above F/E/N - s/p 2L NSS in ER, will continue with NSS at 125mL/hr x 2 liters, monitor electrolytes and replete as needed, DM-I diet as tolerated Ppx - Low risk for DVT. Lovenox for DVT ppx, immobility Code - Full per discussion with patient Dispo - Observation to medical floor with telemetry History of Present Illness Chief Complaint: Dysesthesias Primary Care Provider: MD Dr. Kavon Keenan is a 59-year-old male presenting with dysesthesia of the anterior chest wall, abdomen, back and extremities as well as orthostatic hypotension. Patient's symptoms essentially began in December 2018. Daniel is a longtime type I diabetic diagnosed in 1970 at the age of 18, poorly controlled until recently. He was admitted to the hospital in December 2018 for severe DKA. Hemoglobin A1c at that time was 16.9%. He was started on insulin therapy. Shortly after insulin was initiated he developed excruciating neuropathic pain, hyperesthesia, and weakness. He has been treated with narcotic pain medication which was subsequently transitioned to Cymbalta and gabapentin for the symptoms. He follows routinely with Endocrinology as well as Pain Management. Patient also with significant orthostatic hypotension. Reports his blood pressure this morning was 80/50 associated with symptoms of dizziness and lightheadedness. Blood pressure variable, typically ranging from 80-160/50-100. Symptoms of dyse sthesia and hypotension have been ongoing for the past 6 months. Mostly manageable. However, they have been acutely worsening since June 29. Patient's reports multiple episodes of near syncope with positional changes and after the patient showers. Pain has also become unbearable, marked limitations to daily life. Patient suffered a mild diarrheal illness last week. He had multiple episodes of diarrhea on and Thursday as well as poor appetite and decreased p.o. intake. He reports a 7 pound unintentional weight loss over the last week Patient was being taken to an appointment earlier today. He was unable to get out of the car due to pain weakness and required assistance. He was reportedly quite hypotensive in the office with a blood pressure of 80/60 therefore he was transported to the ER. He does not recollect in full the details prior to arrival. He presently complains of severe dysesthesias involving the anterior chest wall, anterior abdominal wall as well as his back. He reports the pain is so severe that even the touch of his clothes causes him severe discomfort. Pain involves only the skin. He denies muscle pain, spasm or fasciculation. Denies bone pain. Patient sees Dr. Sage as his PCP. Currently in the process of weaning off his medications due to suspected side effects. He is presently taking Remeron 7.5 mg p.o. nightly and has been doing so for the last week. Also taking Cymbalta 60 mg p.o. every morning and 30 mg p.o. nightly for the last week and gabapentin 600 mg p.o. twice daily. ER course: Normal saline solution x2 L Allergies Allergy/AdvReac Type Severity Reaction Status Date / Time Iodinated Contrast Media Allergy Rash Verified 07/11/19 15:28 Home Medications Home Medications Medication Instructions Recorded Confirmed Type ibuprofen [Advil] 800 mg PO Q8H PRN 03/30/19 07/11/19 History thiamine HCl (vitamin B1) 200 mg PO BID #120 tab 04/21/19 07/11/19 Rx acetaminophen ER 650 mg 650 mg PO QID PRN tab 04/29/19 07/11/19 History tablet,extended release aspirin 325 mg tablet 325 mg PO BID PRN 04/29/19 07/11/19 History insulin aspart (U-100) 100 unit/mL See Rx Instructions SC .COMPLEX ml 04/29/19 07/11/19 History (3 mL) subcutaneous pen multivitamin tablet 1 tab PO DAILY 04/29/19 07/11/19 History insulin degludec (U-100) 100 15 units SUBCUT BID #15 ml 06/02/19 07/11/19 Rx unit/mL (3 mL) subcutaneous pen gabapentin 600 mg tablet 600 mg PO BID #120 tab 06/13/19 07/11/19 History duloxetine [Cymbalta] 30 mg PO QPM 07/11/19 07/11/19 History duloxetine [Cymbalta] 60 mg PO QAM 07/11/19 07/11/19 History mirtazapine [Remeron] 7.5 mg PO HS 07/11/19 07/11/19 History Past Med/Surg History Medical History Orthostatic hypotension Polyneuropathy DKA (diabetic ketoacidoses) Diabetes Type I HTN (hypertension) No significant past surgical history Thrombocythemia Family History Father Heart disease [place] Ulcerative colitis Mother Autoimmune disease Other Lymphoma Social History Preferred Language: Gu[place]ian Communication Ability: Effective Job Forwarder Required: No Beliefs That Will Affect Care: None marital status: Current Living Situation: Spouse current occupational status: unemployed and previously employed 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 That might be an issue." Hx Substance Use: No Review of Systems Review of Systems: All systems reviewed & are unremarkable except as noted in HPI & below + Nausea + Chills + Poor appetite + Weight loss Physical Exam Physical Exam: General: patient quite uncomfortable secondary to pain, NAD, non-toxic in appearance, AA&O x 4 Skin: warm, dry, intact, no rashes or lesions, diffuse tenderness with light touch of the skin of the arms, anterior chest, anterior abdomen as well as pretibial bilaterally HEENT: NC/AT, PERRL, EOMI, anicteric sclera, conjunctiva without injection, external ear normal to inspection and nontender, nares patent, moist mucus membranes, dentition intact, no oropharyngeal lesions, neck supple, trachea midline, no LAD, no thyromegaly, no JVD Heart: +S1/S2, regular, no m/r/g Lungs: With anterior auscultation equal air entry bilaterally, no rales/rhonchi/wheezes Abd: +BS, soft, NT/ND, no masses/organomegaly/ascites Ext: warm, 2+ pulses in UE/LE bilaterally, no clubbing/cyanosis or edema Neuro: nonfocal, patient AA&O x 4, speech intact, no facial droop, moving all extremities on command with equal strength 5/5 Results & Data Vital Signs (Past 12 Hours) Vital Signs Temp Pulse Pulse Resp BP BP Pulse Ox 07/11/19 16:29 94 H 18 169/96 H 99 07/11/19 13:34 96 H 25 H 100 07/11/19 13:26 36 C L 95 H 25 H 103/63 100 Laboratory Results Lab Results 07/11/19 07/11/19 07/11/19 Range/Units 13:34 13:34 14:03 WBC 5.91 (4.8-10.8) K/uL RBC 4.47 L (4.7-6.1) M/uL Hgb 13.9 L (14.0-18.0) g/dL POC Hgb 12.9 L (14.0-18.0) g/dl Hct 39.6 L (42-52) % POC Hct 38 L (42-52) % MCV 88.6 (80-100) fL MCH 31.1 (25-34) pg MCHC 35.1 (32-36) g/dL RDW Std Deviation 41.5 (36.4-46.3) fL RDW Coeff of Mart 12.8 (11.5-14.5) % Plt Count 262 (130-400) K/uL MPV 10.2 (7.4-10.4) fL Immature Gran % (Auto) 0.3 % Neut % (Auto) 58.0 % Lymph % (Auto) 25.9 % [place] % (Auto) 14.0 % Eos % (Auto) 1.5 % Baso % (Auto) 0.3 % Immature Gran # (Auto) 0.02 (0.00-0.02) K/uL Neut # (Auto) 3.42 (1.4-6.5) K/uL Lymph # (Auto) 1.53 (1.2-3.4) K/uL [place] # (Auto) 0.83 H (0.11-0.59) K/uL Eos # (Auto) 0.09 (0-0.5) K/uL Baso # (Auto) 0.02 (0-0.2) K/uL POC Sodium 136 (135-144) mEq/L Sodium 136 (136-145) mmol/L POC Potassium 4.0 (3.3-5.0) mEq/L Potassium 4.0 (3.5-5.1) mmol/L POC Chloride 99 L (101-112) mEq/L Chloride 102 (98-107) mmol/L Carbon Dioxide 25 (21-32) mmol/L POC Total CO2 23 L (24-31) mEq/l Anion Gap 9.0 (3-11) POC Anion Gap 18.0 (16-25) mmol/L POC BUN 13 (7-18) mg/dl BUN 14 (7-18) mg/dl Creatinine 1.14 (0.6-1.4) mg/dl POC Creatinine 1.1 (0.6-1.3) mg/dl Est Cr Clr Drug Dosing 69.2 ml/min Est GFR ( Amer) 80.6 Est GFR (Non-Af Amer) 69.5 BUN/Creatinine Ratio 12.1 (10-20) Glucose 131 H (70-99) mg/dl POC Glucose (other) 131 H (70-99) mg/dl Calcium 9.5 (8.5-10.1) mg/dl POC Ioniz Calcium Vivi 1.23 (1.12-1.32) mmol/l Total Bilirubin 0.4 (0.2-1) mg/dl AST 17 (15-37) U/L ALT 32 (12-78) U/L Alkaline Phosphatase 91 (45-117) U/L Total Creatine Kinase 29 L (39-308) U/L CK-MB (CK-2) < 1.0 (0.5-3.6) ng/ml CK/CKMB % Calc TNP Troponin I < 0.015 (0-0.045) ng/ml Total Protein 6.7 (6.4-8.2) gm/dl Albumin 3.6 (3.4-5.0) gm/dl Globulin 3.1 (2.5-4.0) gm/dl Albumin/Globulin Ratio 1.2 (0.9-2) TSH 4.260 (0.300-4.500) uIu/ml Urine Color Urine Appearance (Clear) Urine pH (4.5-7.5) Ur Specific [place] (1.000-1.030) Urine Protein (Negative) Urine Glucose (UA) (Negative) Urine Ketones (Negative) Urine Blood (Negative) Urine Nitrite (Negative) Urine Bilirubin (Negative) Urine Urobilinogen (Negative) Ur Leukocyte Esterase (Negative) 07/11/19 Range/Units 16:50 WBC (4.8-10.8) K/uL RBC (4.7-6.1) M/uL Hgb (14.0-18.0) g/dL POC Hgb (14.0-18.0) g/dl Hct (42-52) % POC Hct (42-52) % MCV (80-100) fL MCH (25-34) pg MCHC (32-36) g/dL RDW Std Deviation (36.4-46.3) fL RDW Coeff of Mart (11.5-14.5) % Plt Count (130-400) K/uL MPV (7.4-10.4) fL Immature Gran % (Auto) % Neut % (Auto) % Lymph % (Auto) % [place] % (Auto) % Eos % (Auto) % Baso % (Auto) % Immature Gran # (Auto) (0.00-0.02) K/uL Neut # (Auto) (1.4-6.5) K/uL Lymph # (Auto) (1.2-3.4) K/uL [place] # (Auto) (0.11-0.59) K/uL Eos # (Auto) (0-0.5) K/uL Baso # (Auto) (0-0.2) K/uL POC Sodium (135-144) mEq/L Sodium (136-145) mmol/L POC Potassium (3.3-5.0) mEq/L Potassium (3.5-5.1) mmol/L POC Chloride (101-112) mEq/L Chloride (98-107) mmol/L Carbon Dioxide (21-32) mmol/L POC Total CO2 (24-31) mEq/l Anion Gap (3-11) POC Anion Gap (16-25) mmol/L POC BUN (7-18) mg/dl BUN (7-18) mg/dl Creatinine (0.6-1.4) mg/dl POC Creatinine (0.6-1.3) mg/dl Est Cr Clr Drug Dosing ml/min Est GFR ( Amer) Est GFR (Non-Af Amer) BUN/Creatinine Ratio (10-20) Glucose (70-99) mg/dl POC Glucose (other) (70-99) mg/dl Calcium (8.5-10.1) mg/dl POC Ioniz Calcium Vivi (1.12-1.32) mmol/l Total Bilirubin (0.2-1) mg/dl AST (15-37) U/L ALT (12-78) U/L Alkaline Phosphatase (45-117) U/L Total Creatine Kinase (39-308) U/L CK-MB (CK-2) (0.5-3.6) ng/ml CK/CKMB % Calc Troponin I (0-0.045) ng/ml Total Protein (6.4-8.2) gm/dl Albumin (3.4-5.0) gm/dl Globulin (2.5-4.0) gm/dl Albumin/Globulin Ratio (0.9-2) TSH (0.300-4.500) uIu/ml Urine Color Yellow Urine Appearance Clear (Clear) Urine pH 6.5 (4.5-7.5) Ur Specific [place] 1.014 (1.000-1.030) Urine Protein Negative (Negative) Urine Glucose (UA) Negative (Negative) Urine Ketones Negative (Negative) Urine Blood Negative (Negative) Urine Nitrite Negative (Negative) Urine Bilirubin Negative (Negative) Urine Urobilinogen Negative (Negative) Ur Leukocyte Esterase Negative (Negative) Diagnostic Findings HEAD CT NONCONTRAST CT DOSE: 729.78 mGycm HISTORY: Altered mental status. TECHNIQUE: Multiaxial CT images of the head were performed without the use of intravenous contrast. Automated exposure control was utilized for this study. A dose lowering technique was utilized adhering to the principles of ALARA. Comparison: Brain MRI 04/20/2019. Findings: Mild mucosal thickening within the ethmoid air cells and sphenoid sinuses.. The mastoid air cells are clear. The calvarium and skull base are intact. The ventricles and sulci are within normal limits. There is no mass, hematoma, midline shift, or acute infarct. Impression: No acute intracranial abnormality. Electronically signed by: Umair Stark M.D. 07/11/2019 2:45 PM Dictated: 07/11/19 1439 Transcribed: 07/11/19 1439 XR chest 1V portable CLINICAL HISTORY: weakness COMPARISON STUDY: 04/16/2019 FINDINGS: The cardiac and mediastinal contours are normal. There is no evidence of focal pulmonary consolidation. There is no evidence of failure. No pleural effusions are visualized.[ IMPRESSION: No active disease in the chest. Electronically signed by: Williams Jacques M.D. 07/11/2019 1:53 PM Dictated: [id number]/11/[id number] Transcribed: 07/11/191352 MRI brain04/20/2019: No intracranial abnormality identified MRI lumbar spine05/23/2019: Disc degeneration and small central disc protrusion at the L5-S1 level. Otherwise unremarkable study MRI thoracic spine04/16/2019: Mild degenerative changes in the mid thoracic spine from T5-6 through T7-8 with mild contouring of the spinal cord. No evidence of spinal cord impingement. No neural foraminal narrowing ECG Additional Comments: Study shows normal sinus rhythm at 100 bpm, normal axis, [place] = 154, QRS = 72, QTc = 433. No acute ischemic changes Code Status & VTE Plan Code Status Full code PG Care Time/CCT Total # of Minutes Spent Total Time Spent with Patient: Total time spent is greater than 50% in coordination of care (as documented) at patient's floor/unit and/or counseling patient: (1) Hypotension Hypotension type: unspecified hypotension type Qualified Code(s): I95.9 - Hypotension, unspecified (2) Diabetic polyneuropathy Diabetes mellitus type: type 1 Qualified Code(s): E10.42 - Type 1 diabetes mellitus with diabetic polyneuropathy (3) Type 1 diabetes mellitus Diabetes mellitus complication status: with other specified complication Qualified Code(s): E10.69 - Type 1 diabetes mellitus with other specified complication (4) HTN (hypertension) Hypertension type: essential hypertension Qualified Code(s): I10 - Essential (primary) hypertension
[2019-07-11 17:13] LABS: Appearance Urine Clear (Clear); Bilirubin Urine Negative (Negative); Blood Urine Negative (Negative); Color Urine Yellow; Glucose Urine UA Negative (Negative); Ketones Urine Negative (Negative); Leukocyte Esterase Urine Negative (Negative); Nitrite Urine Negative (Negative); Protein Urine Negative (Negative); Specific Gravity Urine 1.014 (1.000-1.030); Urobilinogen Urine Negative (Negative); pH Urine 6.5 (4.5-7.5)
--- NOTE | 2019-07-11 18:08 | Emergency Department Note ---
Entered by Sheba Phillips acting as a scribe for History of Present Illness General Chief complaint: Hypotension Time Seen by Provider: 07/11/19 13:25 Source: patient and EMS Limitations: altered mental status History of Present Illness Onset (ago): minute(s) (prior to arrival) Location: head Severity: moderate (90/50) Pain Consistency: + other (episode) Maximum Pain Intensity: 10 Quality: + other (hypotension) Associated symptoms: + other (altered, hands bunring, skin "hurting") The patient is a 59 year old male who presents to the Emergency Room with complaints of an episode of hypotension starting prior to arrival. Per EMS, the patient was at orthopedics office and was lying on the floor asking where he was. They report that when they took his blood pressure it was 90/50. They state that the patient appeared to be altered and complains of pain even at the slightest touch. The patient complains of his hands burning and his skin hurting. HPI and ROS are limited secondary to altered mental status. Home Medications Home Medications Medication Instructions Recorded Confirmed Type ibuprofen [Advil] 800 mg PO Q8H PRN 03/30/19 07/11/19 History thiamine HCl (vitamin B1) 200 mg PO BID #120 tab 04/21/19 07/11/19 Rx acetaminophen ER 650 mg 650 mg PO QID PRN tab 04/29/19 07/11/19 History tablet,extended release aspirin 325 mg tablet 325 mg PO BID PRN 04/29/19 07/11/19 History insulin aspart (U-100) 100 unit/mL See Rx Instructions SC .COMPLEX ml 04/29/19 07/11/19 History (3 mL) subcutaneous pen multivitamin tablet 1 tab PO DAILY 04/29/19 07/11/19 History insulin degludec (U-100) 100 15 units SUBCUT BID #15 ml 06/02/19 07/11/19 Rx unit/mL (3 mL) subcutaneous pen gabapentin 600 mg tablet 600 mg PO BID #120 tab 06/13/19 07/11/19 History duloxetine [Cymbalta] 30 mg PO QPM 07/11/19 07/11/19 History duloxetine [Cymbalta] 60 mg PO QAM 07/11/19 07/11/19 History mirtazapine [Remeron] 7.5 mg PO HS 07/11/19 07/11/19 History Allergies Allergy/AdvReac Type Severity Reaction Status Date / Time Iodinated Contrast Media Allergy Rash Verified 07/11/19 15:28 Past Med/Surg History Medical History Orthostatic hypotension Polyneuropathy DKA (diabetic ketoacidoses) Diabetes Type I HTN (hypertension) No significant past surgical history Thrombocythemia Family History Father Heart disease ID Ulcerative colitis Mother Autoimmune disease Other Lymphoma Social History Preferred Language: Egyptian Communication Ability: Effective 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 That might be an issue." Hx Substance Use: No Review of Systems HPI and ROS are limited secondary to altered mental status. Physical Exam Vital Signs Vital Signs - 24 hr 07/11/19 13:26 07/11/19 13:34 07/11/19 16:29 Temperature 36 C L Temperature Source Oral Sepsis Recent Fever Within 48 Hours No Sepsis Action Taken by Nursing No Action Required Pulse Rate 95 H 96 H Pulse Rate [Apical] 94 H Pulse Rhythm Regular Regular Pulse Strength Normal Respiratory Rate 25 H 25 H 18 Respiratory Effort / Characteristics Non-Labored Spontaneous Non-Labored Spontaneous Respiratory Depth Normal Normal Respiratory Pattern Regular Blood Pressure 103/63 Blood Pressure [Left Arm] 169/96 H Blood Pressure Mean 76 Blood Pressure Mean [Left Arm] 120 Blood Pressure Position Sitting Pulse Oximetry 100 100 99 Oxygen Delivery Method Room Air Room Air Room Air GENERAL: Awake, alert, in no acute distress. Answers questions inappropriately/ incorrectly. HENT: Normocephalic, atraumatic. Oropharynx unremarkable. EYES: Normal conjunctiva. Sclera non-icteric. NECK: Supple. No nuchal rigidity. FROM. No JVD. RESPIRATORY: Clear to auscultation. CARDIAC: Regular rate, normal rhythm. Extremities warm and well perfused. Pulses equal. ABDOMEN: Soft, non-distended. No tenderness to palpation. No rebound or gua rding. No masses. RECTAL: Deferred. MUSCULOSKELETAL: Chest examination reveals no tenderness. The back is symmetrical on inspection without obvious abnormality. There is no CVA tenderness to palpation. No joint edema. LOWER EXTREMITIES: Calves are equal size bilaterally and non-tender. No edema. No discoloration. NEURO: Answers questions inappropriately/ incorrectly. Doesn't know where he is. No sensory or motor deficits noted. SKIN: No rash or jaundice noted. Course 1326: Past medical records reviewed. The patient was evaluated in room B7. A complete history and physical exam was performed. 1408: I reevaluated the patient and his is at bedside. The patient is requesting IV fluids and then to be discharged home. His states that she is not comfortable with him coming home as she thinks he is in delirium. 1526: I reevaluated the patient and updated him and his on his test results. I discussed the treatment plan with them. They verbally agree and understand. 1534: I discussed the patient's case with Dr. Suresh RUBALCAVA Hospitalist. She will evaluate the patient of further management. Consultations Consultation #1: I discussed the patient's case with Dr. Suresh RUBALCAVA Hospitalist. She will evaluate the patient of further management. Time: 15:34 Administered Medications Discontinued Medications Sodium Chloride (Nss 1000ml) 1,000 mls @ 999 mls/hr IV .Q1H1M PATSY Stop: 07/11/19 14:45 Last Infusion: 07/11/19 15:43 Dose: 0 mls/hr Documented by: [id number] Admin: 07/11/19 14:09 Dose: 999 mls/hr Documented by: [id number] Sodium Chloride (Nss 1000ml) 1,000 mls @ 999 mls/hr IV .Q1H1M ONE Stop: 07/11/19 16:28 Last Infusion: 07/11/19 17:11 Dose: 0 mls/hr Documented by: [id number] Admin: 07/11/19 15:43 Dose: 999 mls/hr Documented by: [id number] Medical Decision Making Differential Diagnosis Differential diagnoses includes but is not limited to toxic, metabolic, infectious, traumatic, cardiac, neurologic, hematologic, psychiatric and infl ammatory etiologies. Medical Records Attestation: I reviewed the patient's medical records. Home Medications Current Medication List: was personally reviewed by me Laboratory Data Attestation: I reviewed the patient's lab results. Result diagrams: 07/11/19 13:34 10/07/19 13:34 Lab Results 07/11/19 07/11/19 07/11/19 Range/Units 13:34 13:34 14:03 WBC 5.91 (4.8-10.8) K/uL RBC 4.47 L (4.7-6.1) M/uL Hgb 13.9 L (14.0-18.0) g/dL POC Hgb 12.9 L (14.0-18.0) g/dl Hct 39.6 L (42-52) % POC Hct 38 L (42-52) % MCV 88.6 (80-100) fL MCH 31.1 (25-34) pg MCHC 35.1 (32-36) g/dL RDW Std Deviation 41.5 (36.4-46.3) fL RDW Coeff of Mart 12.8 (11.5-14.5) % Plt Count 262 (130-400) K/uL MPV 10.2 (7.4-10.4) fL Immature Gran % (Auto) 0.3 % Neut % (Auto) 58.0 % Lymph % (Auto) 25.9 % [place] % (Auto) 14.0 % Eos % (Auto) 1.5 % Baso % (Auto) 0.3 % Immature Gran # (Auto) 0.02 (0.00-0.02) K/uL Neut # (Auto) 3.42 (1.4-6.5) K/uL Lymph # (Auto) 1.53 (1.2-3.4) K/uL [place] # (Auto) 0.83 H (0.11-0.59) K/uL Eos # (Auto) 0.09 (0-0.5) K/uL Baso # (Auto) 0.02 (0-0.2) K/uL POC Sodium 136 (135-144) mEq/L Sodium 136 (136-145) mmol/L POC Potassium 4.0 (3.3-5.0) mEq/L Potassium 4.0 (3.5-5.1) mmol/L POC Chloride 99 L (101-112) mEq/L Chloride 102 (98-107) mmol/L Carbon Dioxide 25 (21-32) mmol/L POC Total CO2 23 L (24-31) mEq/l Anion Gap 9.0 (3-11) POC Anion Gap 18.0 (16-25) mmol/L POC BUN 13 (7-18) mg/dl BUN 14 (7-18) mg/dl Creatinine 1.14 (0.6-1.4) mg/dl POC Creatinine 1.1 (0.6-1.3) mg/dl Est Cr Clr Drug Dosing 69.2 ml/min Est GFR ( Amer) 80.6 Est GFR (Non-Af Amer) 69.5 BUN/Creatinine Ratio 12.1 (10-20) Glucose 131 H (70-99) mg/dl POC Glucose (other) 131 H (70-99) mg/dl Calcium 9.5 (8.5-10.1) mg/dl POC Ioniz Calcium Vivi 1.23 (1.12-1.32) mmol/l Total Bilirubin 0.4 (0.2-1) mg/dl AST 17 (15-37) U/L ALT 32 (12-78) U/L Alkaline Phosphatase 91 (45-117) U/L Total Creatine Kinase 29 L (39-308) U/L CK-MB (CK-2) < 1.0 (0.5-3.6) ng/ml CK/CKMB % Calc TNP Troponin I < 0.015 (0-0.045) ng/ml Total Protein 6.7 (6.4-8.2) gm/dl Albumin 3.6 (3.4-5.0) gm/dl Globulin 3.1 (2.5-4.0) gm/dl Albumin/Globulin Ratio 1.2 (0.9-2) TSH 4.260 (0.300-4.500) uIu/ml Imaging Data Radiologist's Impression: Radiology results as stated below per my review and the radiologist's interpretation: XR chest 1V portable CLINICAL HISTORY: weakness COMPARISON STUDY: 04/16/2019 FINDINGS: The cardiac and mediastinal contours are normal. There is no evidence of focal pulmonary consolidation. There is no evidence of failure. No pleural effusions are visualized.[ IMPRESSION: No active disease in the chest. Electronically signed by: Williams Jacques M.D. 07/11/2019 1:[address] NON[address]AST CT DOSE: 729.78 mGycm HISTORY: Altered mental status. TECHNIQUE: Multiaxial CT images of the head were performed without the use of intravenous contrast. Automated exposure control was utilized for this study. A dose lowering technique was utilized adhering to the principles of ALARA. Comparison: Brain MRI 04/20/2019. Findings: Mild mucosal thickening within the ethmoid air cells and sphenoid sinu ses.. The mastoid air cells are clear. The calvarium and skull base are intact. The ventricles and sulci are within normal limits. There is no mass, hematoma, midline shift, or acute infarct. Impression: No acute intracranial abnormality. Electronically signed by: Umair Stark M.D. 07/11/2019 2:45 PM ECG Data Attestation: I personally reviewed and interpreted this ECG as follows: Indication: altered mental status Rate (beats per minute): 100 Rhythm: normal sinus Findings: + other (normal EKG, normal axis, QT 336); no ST depression and no ST elevation Blood Pressure Blood Pressure Findings: Low blood pressure Blood Pressure Disposition: further management by hospitalist MDM Narrative This is a 59-year-old male who presents emergency department hypotensive and over concerns that the patient may have inadvertently taken his medication incorrectly. Upon arrival to the emergency department patient is hypotensive he was given a 2 L bolus fluid x2. Patient does appear altered to me does appear to be confused. I did discuss this with his who is also agrees with this. Because of this we did discuss the case with the hospitalist service who agreed to admit the patient. Patient family were in agreement with the treatment plan. Impression & Plan Hypotension, Altered mental status Discharge Plan Visit Data Chief Complaint: Hypotension ED Provider: Hamzah Eli Discharge Problem: Hypotension, Altered mental status Patient Disposition: Being Evaluated by Hospitalist Discharge Instructions Interventions: ED Discharge Assessment Last Done: 07/11/19 16:50 Discharge Problem: Hypotension Qualifiers: Hypotension type: unspecified hypotension type Qualified Code(s): I95.9 - Hypotension, unspecified Altered mental status Qualifiers: Altered mental status type: unspecified Qualified Code(s): R41.82 - Altered mental status, unspecified The scribe's documentation has been prepared under my direction and personally reviewed by me in its entirety. I confirm that the note above accurately reflects all work, treatment, procedures, and medical decision making performed by me.
[2019-07-11] MEDS ORDERED: ACETAMINOPHEN 325 MG TAB PO PRN (18:17)
[2019-07-11] MEDS ORDERED: GLUCOSE 10 TABS/TUBE PO PRN (18:17)
[2019-07-11] MEDS ORDERED: ONDANSETRON INJ 2 MG/ML 2 ML VIAL IV PRN (18:17)
[2019-07-11] MEDS ORDERED: GLUCAGON FOR INJ 1 MG VIAL SQ PRN (18:17)
[2019-07-11] MEDS ORDERED: DEXTROSE 50% 50 ML SYRINGE IV PRN (18:17)
[2019-07-11] MEDS ORDERED: GLUCOSE 40% GEL 15 GM TUBE PO PRN (18:17)
[2019-07-11] MEDS ORDERED: CARBOHYDRATES FOR HYPOGLYCEMIA PO PRN (18:17)
[2019-07-11] MEDS ORDERED: PHARMACY GLYCEMIC MGMT CONSULT PRN (18:35)
[2019-07-11 18:48] LABS: Phosphorus 2.5 mg/dl (2.5-4.9)
[2019-07-11] MEDS: SODIUM CHLORIDE 0.9% 1000ML 1,000 ML IV SCH (19:12)
[2019-07-11] MEDS: INSULIN ASPART 100 UNITS/ML 3 ML PEN SC SCH (19:23)
[2019-07-11] MEDS: GABAPENTIN 600 MG TAB PO SCH (20:27)
[2019-07-11] MEDS ORDERED: DULOXETINE HCL 30 MG CAP PO SCH (21:00)
[2019-07-11] MEDS ORDERED: MIRTAZAPINE TAB 15 MG TAB PO SCH (21:00)
[2019-07-11] MEDS ORDERED: INSULIN DEGLUDEC 15 UNIT SQ SCH (21:00)
[2019-07-11] MEDS ORDERED: INSULIN GLARGINE SOLOSTAR 100 UNITS/ML 3 ML PEN SC ONE (21:30)
[2019-07-12] MEDS: INSULIN ASPART 100 UNITS/ML 3 ML PEN SC SCH ×5 (00:02→16:57)
[2019-07-12] MEDS: SODIUM CHLORIDE 0.9% 1000ML 1,000 ML IV SCH (02:16)
[2019-07-12 07:20] LABS: Basophils # (auto) 0.02 K/uL (0-0.2); Basophils % (auto) 0.4 %; Eosinophils # (auto) 0.12 K/uL (0-0.5); Eosinophils % (auto) 2.2 %; Hematocrit (blood only) 35.9 % (42-52); Hemoglobin 12.7 g/dL (14.0-18.0); Immature Granulocytes # (auto) 0.01 K/uL (0.00-0.02); Immature Granulocytes % (auto) 0.2 %; Lymphocytes # (auto) 1.47 K/uL (1.2-3.4); Lymphocytes % (auto) 26.6 %; Mean Corpuscular Hgb Conc 35.4 g/dL (32-36); Mean Corpuscular Volume 87.6 fL (80-100); Mean Platelet Volume 9.6 fL (7.4-10.4); Monocytes # (auto) 0.66 K/uL (0.11-0.59); Neutrophils # (auto) 3.24 K/uL (1.4-6.5); Neutrophils % (auto) 58.6 %; Platelet Count 217 K/uL (130-400); RDW Coefficient of Variation 12.8 % (11.5-14.5); RDW Standard Deviation 41.1 fL (36.4-46.3); White Blood Count 5.52 K/uL (4.8-10.8)
[2019-07-12 07:52] LABS: BUN Creatinine Ratio 14.4 (10-20); Creatinine Clr Calc Pharmacy 131.3 ml/min; Est GFR (African American) 127.5; Potassium 3.9 mmol/L (3.5-5.1)
[2019-07-12 08:08] LABS: Estimated Average Glucose 151 mg/dl; Hemoglobin A1C 6.9 % (4.5-5.6)
[2019-07-12] MEDS ORDERED: INSULIN GLARGINE SOLOSTAR 100 UNITS/ML 3 ML PEN SC STA (08:43)
--- NOTE | 2019-07-12 08:50 | Pharmacy Report ---
Glycemic Control Consultation - Date of Service July 12, 2019 - Scope Scope: Glycemic Pharmacist consulted for glycemic control and to write orders per [facility] inpatient glycemic control protocol - Objective Weight: 69.7 kg Accuchecks BSG (last 24hrs): 07/11/19 07/11/19 07/11/19 13:30 13:34 14:03 Glucose 131 H POC Glucose 145 H POC Glucose (other) 131 H 07/11/19 07/12/19 07/12/19 19:09 03:48 04:25 Glucose POC Glucose 76 60 L* 85 POC Glucose (other) 07/12/19 07/12/19 06:58 07:48 Glucose 104 H POC Glucose 103 H POC Glucose (other) Laboratory Data (last 24hrs): 07/11/19 07/12/19 13:34 06:58 Potassium 4.0 3.9 Carbon Dioxide 25 24 Anion Gap 9.0 7.0 Creatinine 1.14 0.59 L D Est Cr Clr Drug Dosing 69.2 131.3 HbA1c: Hemoglobin A1c 6.9 % (4.5-5.6) H 07/12/19 06:58 - Recent Pertinent Medications Outpatient Anti-diabetic Regimen: * Tresiba 15 units SC BID * Novolog * Total daily dose noted to be 60 units * A1c = 6.9 % on 07/12/19 The patient is currently receiving: * No insulin [id number] has been administered as an inpatient thus far Risk Factors for Insulin Resistance: * Diet: T1DM ordered although poor po intake anticipated - Assessment & Plan Assessment & Plan: ASSESSMENT: * 59 yo M with TYPE 1 diabetes that was poorly controlled until recently. * Patient was admitted in December 2018 for DKA and HbA1c >16.9%. Patient was also admitted April 2019 for intractable pain and HbA1c with significant noted improvement to 7.3% at that time. HbA1c this visit remains at/near goal at 6.9%. * Will not reference inpatient management during December admission as patient's requirements during that time were likely significantly higher 2nd insulin- resistant state induced by DKA. * Extensively reviewed glycemic control and regimen from admission in April 2019 * Patient's PO intake was extraordinarily limited, with many days with no PO intake documented * Patient experienced hypoglycemic event with BSG of 49 mg/dL in the evening of 04/17 after 10 units Lantus 7/13 PM and 15 units Lantus 04/17 AM (25 units total on board at time of event) * After this event, Lantus 10 units daily initiated (no po intake continued) which produced fasting BSG's ranging 104-126 mg/dL (sustained over 5 individual BSG checks over >24 hours) * Adequacy of Novolog parameters cannot be easily assessed with data from this admission as patient received only low-dose correctional insulin totaling 7 units over his first 3-4 days and po intake remained poor prior to discharge * Patient's outpatient regimen is likely too aggressive for current inpatient management with poor po intake, as evidenced both by minimal insulin requirements during April admission and noted hypoglycemic event overnight last night * BSG of 60 mg/dL overnight despite no insulin administered at [facility] yet this visit. Hypoglycemic event likely 2nd home Tresiba 15 unit dose administered 07/11 AM prior to arrival - this is consistent with the patient requiring only 10 units Lantus daily last visit with no/minimal po intake * Will base current inpatient Lantus doses on previous inpatient requirements instead of utilizing outpatient dose. Acknowledge that going from basal insulin of 15 units BID to 10 units daily is a very aggressive decrease, especially for a patient with type 1 diabetes, but this is supported by previous admission data and current BSG trend this admission * Novolog parameters loosened to weight-based moderate stress estimate given hypoglycemic event overnight. This is less aggressive than than Novolog parameters used on 04/21/19, but difficult to assess adequacy of previous regimen given po intake remaining poor prior to discharge last admission. PLAN FOR INPATIENT GLYCEMIC CONTROL: * Basal insulin * Lantus 10 units SQ qAM * Bolus insulin * NovoLog per scale ACHS or Q6hrs while NPO * Goal Range: 120-150 mg/dL * Correction Factor: 35 mg/dL/unit * Nutritional / Prandial insulin per carb ratio of 1 unit per 11 grams CHO consumed * Please note that the plan above was derived based on current level of insulin resistance and hospital stress. These recommendations are appropriate for inpatient admission only. Plan of care upon discharge will need to be reassessed to avoid potential outpatient hypo/hyperglycemia. Thank you.
[2019-07-12] MEDS: GABAPENTIN 600 MG TAB PO SCH (08:52)
[2019-07-12] MEDS ORDERED: DULOXETINE HCL 60 MG CAP PO SCH (09:00)
[2019-07-12] MEDS ORDERED: ENOXAPARIN INJ 40 MG/0.4 ML SYR SQ SCH (09:00)
--- NOTE | 2019-07-12 09:04 | Pain Management Consultation ---
Date of Consultation July 12, 2019 Assessment & Plan (1) Diabetic polyneuropathy: 1. Patient states that he wishes to continue the wean of his Cymbalta, gabapentin, Remeron as an outpatient under the direction of his primary care physician Dr. Sage. I advised him for a slow wean of medications to avoid any unintended consequences of abrupt discontinuation. He understands that his pain will likely recur as he is weaning his medications. Patient states that he is comfortable with recurrence of pain and should pain recur he would resume Cymbalta at that time. 2. He reports that he has been sleeping well and wishes to discontinue Remeron at this time. 3. Recommend that the patient continue to work with behavioral health as an outpatient for depression and anxiety. 4. Thank you for this consultation please call if you have any questions. Diabetes mellitus type: type 1 Qualified Code(s): E10.42 - Type 1 diabetes mellitus with diabetic polyneuropathy (2) Depression with anxiety: (3) Uncontrolled type 1 diabetes mellitus: Glycemic state: with hyperglycemia Qualified Code(s): E10.65 - Type 1 diabetes mellitus with hyperglycemia (4) Hypotension: Hypotension type: unspecified hypotension type Qualified Code(s): I95.9 - Hypotension, unspecified History of Present Illness Attending Physician: Cuong Logan History of Present Illness 59-year-old male with history of thoracic dysesthesias around his entire chest wall and a coexisting diagnosis of type 1 diabetes. Reports that he was at a physician appointment yesterday and felt lightheaded requiring him lying down in the supine position. He was subsequently brought to the emergency room for further evaluation. He reports that his symptoms have improved since initiation of Cymbalta, gabapentin, Remeron. He continues to work with behavioral health through the [facility] pain management office for adjuvant pain treatment. He states that he has been sleeping well at night and wishes for discontinuation of Remeron at this time as he believes this may be the source of his orthostatic hypotension. He reports that he has been weaning his Cymbalta and gabapentin dosing under the direction of his primary care physician Dr. Sage. He states that he has not noticed a significant change in the magnitude of his symptoms since the wean began. He reports ultimately he would like to discontinue all of these medications. He denies significant pain on today's examination though a specific pain number was not provided. He is sitting up on examination he denies orthostatic symptoms at this time. He offers no other constitutional complaints, bowel or bladder incontinence, motor weakness, footdrop, fever chills or night sweats at today's visit. Allergies Allergy/AdvReac Type Severity Reaction Status Date / Time Iodinated Contrast Media Allergy Rash Verified 07/11/19 15:28 Home Medications Home Medications Medication Instructions Recorded Confirmed Type ibuprofen [Advil] 800 mg PO Q8H PRN 03/30/19 07/11/19 History thiamine HCl (vitamin B1) 200 mg PO BID #120 tab 04/21/19 07/11/19 Rx acetaminophen ER 650 mg 650 mg PO QID PRN tab 04/29/19 07/11/19 History tablet,extended release aspirin 325 mg tablet 325 mg PO BID PRN 04/29/19 07/11/19 History insulin aspart (U-100) 100 unit/mL See Rx Instructions SC .COMPLEX ml 04/29/19 07/11/19 History (3 mL) subcutaneous pen multivitamin tablet 1 tab PO DAILY 04/29/19 07/11/19 History insulin degludec (U-100) 100 15 units SUBCUT BID #15 ml 06/02/19 07/11/19 Rx unit/mL (3 mL) subcutaneous pen gabapentin 600 mg tablet 600 mg PO BID #120 tab 06/13/19 07/11/19 History duloxetine [Cymbalta] 30 mg PO QPM 07/11/19 07/11/19 History duloxetine [Cymbalta] 60 mg PO QAM 07/11/19 07/11/19 History mirtazapine [Remeron] 7.5 mg PO HS 07/11/19 07/11/19 History Pain History Pain Location Full Body Front + Back: 1. entire chest wall dysesthesias 2. Cause Cause of Pain: Spontaneous Timing Timing: all day Character Pain character: burning Activity Factors Exacerbated by: other (nothing makes pain worse other than lack of sleep) Improved by: other (nothing makes pain better other than sleep and meds) Previous Treatment Medications: Cymbalta, Gabapentin, Narcotics and TCA Previous Evaluations and Results Evaluations by other providers: endocrine/neurology/PCP Current Therapy Current Medication Therapy: Cymbalta, Gabapentin and TCA Current or Pending Litigation Current or Pending Litigation: Unknown Patient History Medical History Orthostatic hypotension Polyneuropathy DKA (diabetic ketoacidoses) Diabetes Type I HTN (hypertension) No significant past surgical history Thrombocythemia Family History Father Heart disease CA Ulcerative colitis Mother Autoimmune disease Other Lymphoma Social History Preferred Language: Kyr[place] Communication Ability: Effective 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 Psych: Awake, alert, and oriented 3 with normal affect and mood. Recent memory appears grossly intact. Cooperative and pleasant on examination Eyes: Pupils are equally round and reactive to light with normal size pupils, eyelids appear normal Ear, nose, mouth, and throat: Moist nasal and oral membranes, lips and tongues appear normal, no external ear abnormalities are noted Neck: The trachea is midline without deviation and no thyromegaly is noted Respiratory: Normal respiratory effort without distress, no audible wheezes or rhonchi CV: Normal S1 and S2 Musculoskeletal: Head is normocephalic and atraumatic, gait not observed Cervical: Lordotic curve: Normal Range of motion is normal with extension, flexion, side-bending, rotation Strength: Strength is grossly equal bilaterally with 5 out of 5 strength in all planes Thoracic: Kyphotic curve: Normal Range of motion is normal with extension, flexion, side-bending, rotation Lumbar: Lordotic curve: Normal Range of motion is normal with extension, flexion, side-bending, rotation Strength: Strength is grossly equal bilaterally with 5 out of 5 strength in all planes Skin: No rashes, lesions, ulcers, or induration noted Neuro: No nystagmus noted, the tongue is midline, the patient is able to rotate their head bilaterally : Deferred Results Diagnostic Review MRI: non enhanced and reports reviewed MRI Findings: MRI OF THE BRAIN COMBO 04/20/19 Brain parenchyma: The brain parenchyma is normal in appearance. There is no hemorrhage or mass effect. There is no restricted diffusion to suggest acute ischemia. No enhancing mass lesion is identified on the postcontrast images. Hong-white matter differentiation is preserved. No extra-axial fluid collection is seen. The cerebellar tonsils are normal in configuration. Ventricles, sulci, and cisterns: Normal in configuration. Pituitary and sella: Unremarkable. Intracranial vasculature: Normal flow voids are maintained at the skull base. Orbits: The bony orbits are grossly intact. Orbital contents are normal in appearance. Sinuses and mastoids: There is trace mucosal thickening within the ethmoid sinuses and the maxillary antra. The paranasal sinuses are otherwise clear. The mastoid air cells are well pneumatized. Calvarium: Unremarkable. Cervical cord: Partially visualized cervical spinal cord is normal in morphology and signal intensity. IMPRESSION: No intracranial abnormality is identified. MR thoracic spine wo con 04/16/19 Normal thoracic kyphosis. Vertebral bodies maintain normal height and alignment. Mild disc desiccation may be present in the thoracic spine. No intervertebral disc height loss. Small disc osteophyte complexes noted at T5-6 through T7-8, with mild effacement of the ventral thecal sac. Mild contouring of the anterior spinal cord along the paracentral right aspect at T6-7 and paracentral left aspect at T7-8. No significant neural foraminal narrowing. Thoracic spinal cord normal in morphology and signal intensity. No gross evidence of an epidural collection. No paraspinal muscle edema. T2 flow-voids within the vasculature preserved. Visualized soft tissues within normal limits. IMPRESSION: Mild degenerative changes in the midthoracic spine from T5-6 through T7-8 with mild contouring of the spinal cord. No evidence of spinal cord impingement. No neural foraminal narrowing. MR lumbar spine wo con 05/23/19 CLINICAL HISTORY: Low back pain with bilateral leg weakness. TECHNIQUE: Sagittal and axial T1, T2 and STIR images were obtained. COMPARISON STUDY: No previous studies for comparison. OBSERVATIONS: The vertebral bodies and posterior elements appear intact. There is no abnormal bony signal present to suggest a marrow replacement process. L1-2: No disc protrusions or extrusions. No evidence of spinal canal or neural foraminal compromise. L2-3: No disc protrusions or extrusions. No evidence of spinal canal or neural foraminal compromise. L3-4: No disc protrusions or extrusions. No evidence of spinal canal or neural foraminal compromise. L4-5: No disc protrusions or extrusions. No evidence of spinal canal or neural foraminal compromise. L5-S1: There is a small central disc protrusion. There is no thecal sac deformity. There is no foraminal stenosis. The conus medullaris and cauda equina appear normal. IMPRESSION: Disc degeneration and small central disc protrusion at the L5-S1 level. Otherwise unremarkable study. CT: non enhanced and reports reviewed CT Findings: Head CT dated 07/11/2019 shows no acute intracranial abnormality.
--- NOTE | 2019-07-18 21:36 | Discharge Summary ---
Date of Service date of admission - 07/11/19 date of discharge - 07/12/19 Admission HPI Per Admitting Provider Kavon Sanchez is a 59-year-old male presenting with dysesthesia of the anterior chest wall, abdomen, back and extremities as well as orthostatic hypotension. Patient's symptoms essentially began in December 2018. 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 He was admitted to the hospital in December 2018 for severe DKA. Hemoglobin A1c at that time was 16.9%. He was started on insulin therapy. Shortly after insulin was initiated he developed excruciating neuropathic pain, hyperesthesia, and weakness. He has been treated with narcotic pain medication which was subsequently transitioned to Cymbalta and gabapentin for the symptoms. He follows routinely with Endocrinology as well as Pain Management. Patient also with significant orthostatic hypotension. Reports his blood pressure this morning was 80/50 associated with symptoms of dizziness and lightheadedness. Blood pressure variable, typically ranging from 80-160/50-100. Symptoms of dysesthesia and hypotension have been ongoing for the past 6 months. Mostly manageable. However, they have been acutely worsening since June 29. Patient's reports multiple episodes of near syncope with positional changes and after the patient showers. Pain has also become unbearable, marked limitations to daily life. Patient suffered a mild diarrheal illness last week. He had multiple episodes of diarrhea on and Thursday as well as poor appetite and decreased p.o. intake. He reports a 7 pound unintentional weight loss over the last week Patient was being taken to an appointment earlier today. He was unable to get out of the car due to pain weakness and required assistance. He was reportedly quite hypotensive in the office with a blood pressure of 80/60 therefore he was transported to the ER. He does not recollect in full the details prior to arrival. He presently complains of severe dysesthesias involving the anterior chest wall, anterior abdominal wall as well as his back. He reports the pain is so severe that even the touch of his clothes causes him severe discomfort. Pain involves only the skin. He denies muscle pain, spasm or fasciculation. Denies bone pain. Patient sees Dr. Sage as his PCP. Currently in the process of weaning off his medications due to suspected side effects. He is presently taking Remeron 7.5 mg p.o. nightly and has been doing so for the last week. Also taking Cymbalta 60 mg p.o. every morning and 30 mg p.o. nightly for the last week and gabapentin 600 mg p.o. twice daily. ER course: Normal saline solution x2 L Principal Diagnosis syncope 2nd to hypotension/severe orthostasis Discharge Exam Constitutional average body habitus; no acute distress and no altered mental status [facility] external ear and nose normal, oropharynx normal Respiratory normal respiratory effort, lungs clear to auscultation Cardiovascular Rate/Rhythm: regular rate and regular rhythm Heart Sounds: normal S1 and normal S2; no murmur Vessels: posterior tibial pulses present and dorsalis pedis pulses present; no JVD Extremities: no edema Gastrointestinal (Abdomen) normal bowel sounds, soft, nontender, no hepatosplenomegaly Skin no rashes, warm and dry Psychiatric Orientation: alert and oriented x 3 Affect: + blunted affect Discharge Data Allergies Allergy/AdvReac Type Severity Reaction Status Date / Time Iodinated Contrast Media Allergy Rash Verified 07/11/19 15:28 Consultations [facility] Pain Management Procedures Performed CT head - negative for acute process. Hospital Course (1) Syncope: While at the doctor's office prior to admission he had very low blood pressure, became altered, and likely had an episode of syncope as Dr Sanchez doesn't recall all of the details that occurred at that time. Indeed his presenting BP was 103/63 in the [facility] ER. Dr Sanchez reports he had had a GI illness in the days leading up to this admission. Further, he reported numerous low readings in the last few weeks/months at his home. Many of his lowest readings were typically after taking a hot shower. He often feels very dizzy/lightheaded when his BPs are low. I suspect he was volume contracted from the recent GI illness. This, coupled with diabetic neuropathy leading to autonomic insufficiency, likely are the causes of his pre-syncope/syncope/dizziness/lightheadedness. Of note - cortisol level on 12/16/18 was 17. Additionally he had a normal echo in June 2019 with preserved EF and normal valve function. The patient had no further dizziness/lightheaded following IV fluids. In fact his BPs remained high for the remainder of his stay. Orthostatics checked on the afternoon of discharge showed <20 point BP drop with standing. (2) Altered mental status: see "syncope" above likely was due to presyncope/syncope (3) Hypotension: Patient reported long-standing history of orthostatic hypotension. This is most likely secondary to autonomic dysfunction from type 1 diabetes. Cannot rule out medication side effects from Cymbalta, Remeron, gabapentin. He also had a GI illness (diarrhea, etc) and poor appetite in the days leading up to this admission. Again his hypotension resolved with IV fluids. (4) Diabetic polyneuropathy: Patient with approximately 6-month history of dysesthesias. These have been quite severe leading to significant pain & dysfunction in his life. He did have a decent response to cymbalta for these symptoms. He follows with the diabetes clinic and there is some suspicion that this may be secondary to "treatment-induced diabetic neuropathy." Patient with previously poorly controlled type 1 diabetes with an A1c of 16.9% in December 2018. Most recent hemoglobin A1c 7.4% in April. Rapid correction of A1c as well as timing of symptom onset support a diagnosis of treatment-induced diabetic neuropathy. Consider psychosocial factors contributing to overall clinical picture as well. Patient is currently trying to wean off cymbalta and gabapentin. He was seen by pain management this admission who strongly recommended to remain on the above medications (in light of severe pain) but again the patient has a desire to wean off. Patient was asked to follow-up with his PCP and pain management for further guidance on the above issues. (5) Type 1 diabetes mellitus: Excellent control at home of late and also during this brief hospitalization. (6) Depression with anxiety: Continues on Cymbalta and Remeron but patient voiced he wants to wean off these as an outpatient, (7) HTN (hypertension): Was hypotensive and orthostatic at presentation. Following resolution of such his BPs then went the opposite direction with SBPs ranging from 140s to 170s. I asked him to check his BPs at home 1-2x's daily and follow-up with his PCP for this. I did not institute any BP medications while here. Total Time Total Time Spent Total Time Spent (In Minutes): 30 Total Time Includes: Examination of the Patient, Discharge Planning, Medication Reconciliation and Communication With Other Providers Discharge Plan Discharge Items Patient Disposition: Home - Self-Care Reason For Visit: Low blood pressure, dehydration, severe pain Discharge Diagnosis: 1. dehydration - resolved 2. low blood pressure - resolved 3. severe pain in multiple locations - pain modestly better today Goals: 1. improve pain 2. eliminate the low blood pressure 3. resolve the dehydration Activity: Resume your previous activity Exercise/Sports: Gradually increase as tolerated Driving/Machine Use: Resume 3 days after discharge Non-emergency contact: Primary Care Provider and Specialist Call non-emergency contact if: you have any medication questions, your symptoms worsen, your pain is not controlled, your pain is worsening, your pain is unusual for you, your pain is concerning for you and you have a fever Follow-up/Referrals: Cuong Sage MD [Primary Care Provider] - (please see Dr Sage within 5-7 days) Diet: Carb Count or DM1 Addtl Attending Provider Instructions: You were treated for dizziness/lightheadedness, near-syncope, low blood pressure, and dehydration. Your labs and history all suggest that you were dehydrated upon presentation to the Emergency Room. The low blood pressure was additional evidence of your dehydration. With IV fluids the dehydration and low blood pressure resolved. Your creatinine (kidney function level) was 1.1, improving to 0.5 with IV fluids - again evidence of dehydration. I suspect the recent diarrhea illness and poor appetite contributed to this. Your CT scan of the head did not show any abnormalities such as stroke. Your chest x-ray was free of pneumonia. The urinalysis was clear and free of UTI. Your hemoglobin a1c was 6.9% - excellent job with your diabetes. I will defer to you whether to wean off the cymbalta and/or mirtazapine. Your pain management physician and I feel that you should continue on these as they are likely helping your pain significantly. If you elect to wean off of these medications please speak to Dr Sage about a weaning schedule to avoid rebound symptoms. If your episodes of dizziness, low blood pressure, etc continue please consider an outpatient "cosyntropin stimulation blood test" to ensure you do not have adrenal insufficiency. Dr Sage could arrange for this if necessary. You could consider wearing compression hose on your legs if your dizziness continues. Please stay hydrated on a day-to-day basis at home to avoid dehydration. Continue to check your blood pressures once or twice a day at home. You may stop the thiamine supplement at this time as you have had several months of this. Follow-up -- see Dr Sage within 1 week Return to [facility] if -- * you have fevers over 100.5 degrees * you have worsening pain in any location * you have severe dizziness/lightheadedness * any other concerns Pending Studies at Discharge: No Stand-Alone Forms: [facility] Medications and DC Order Prescriptions: Continued gabapentin 600 mg tablet 600 mg PO BID Qty: 120 RF: 0 Tresiba FlexTouch U-100 100 unit/mL (3 mL) insulin pen 15 units SUBCUT BID Qty: 15 RF: 3 acetaminophen 650 mg tablet extended release 650 mg PO QID PRN (Reason: Pain) RF: 0 aspirin 325 mg tablet 325 mg PO BID PRN (Reason: Unknown) RF: 0 multivitamin tablet 1 tab PO DAILY RF: 0 duloxetine [Cymbalta] 60 mg capsule,delayed release(DR/EC) 60 mg PO QAM RF: 0 duloxetine [Cymbalta] 30 mg capsule,delayed release(DR/EC) 30 mg PO QPM RF: 0 mirtazapine [Remeron] 15 mg tablet 7.5 mg PO HS RF: 0 ibuprofen [Advil] 200 mg Tablet 800 mg PO Q8H PRN (Reason: Pain) RF: 0 Novolog Flexpen U-100 Insulin 100 unit/mL (3 mL) insulin pen See Patient Comments SC .COMPLEX RF: 0 Discontinued thiamine HCl (vitamin B1) 100 mg tablet 200 mg PO BID Qty: 120 RF: 0 Discharge Orders: Discharge Order (Routine); Ordered 07/12/19 Ordered By: Cuong Logan Admission Data Admit Date/Time: 07/11/19 16:42 Attending Provider: Cuong Logan Admit Provider: Salma Cr Primary Care Provider: Cuong Sage Other Providers: Salma Cr ; Ben Avila Other Interventions: Discharge Summary Assessment (RN) Last Done: 07/12/19 17:15 DC Date/Time DO NOT enter until pt leaves facility: 07/12/19 18:24
== END 2019-07-12 18:24 | disposition home or self-care (01) ==
LOC: 2W 13:22 → ED 13:22 → SUATTDRO 16:42 → 2W 16:50
DX: D47.3 Essential (hemorrhagic) thrombocythemia; E11.10 Type 2 diabetes mellitus with ketoacidosis without coma; Z79.899 Other long term (current) drug therapy; I10 Essential (primary) hypertension; Z91.041 Radiographic dye allergy status; I95.9 Hypotension, unspecified; Z79.4 Long term (current) use of insulin; I95.1 Orthostatic hypotension

== ENCOUNTER 2021-05-16 10:25 | Observation (INO) ==
[2021-05-16] MEDS ORDERED: AMPICILLIN/SULBACTAM SOD 3,000 MG in 0.9 % SODIUM CHLORIDE 100 ML IV STA (11:22)
--- NOTE | 2021-05-16 11:36 | Emergency Department Note ---
Impression & Plan Cat bite, Cellulitis of hand, left, Cellulitis of right hand ED Provider Note INFORMANT: Patient ED PROVIDER(S): Fransisco Norwood MD CHIEF COMPLAINT: Cat bite PLAN: Disposition: Admitted Condition: Good Outpatient prescription management: none Referral: None MEDICAL DECISION MAKING: Patient presented because of concerns for infection secondary to cat bites received on both hands. He has significant swelling and limited range of motion of the index fingers bilaterally. Blood work was obtained. Wound culture was done. He had an unremarkable CBC and chemistry panel. The patient received IV Unasyn. Because of his impairment and rapidly worsening infection despite initiation of first-line treatment with Augmentin further management in the hospital is necessary. Consultation was placed with [facility]. I did discuss the case with Akbar Nolan PA-C. The patient will be seen in consultation by Dr. Osito Mccall this evening. Consultation was made wi Dr. Amanuel Henry of the [facility] service. Patient was evaluated in the ER for further management. Triage Nursing notes reviewed and agree them. Vital Signs: reviewed and remarkable for hypertension Differential diagnosis: Cellulitis, abscess, foreign body, MRSA infection, DVT, necrotizing fasciitis, dermatitis, drug eruption, allergic reaction, as well as other pathologies. Diagnostics interpreted by me: ECG: none Cardiac Monitoring: none Imaging studies: X-ray imaging of the bilateral hands did not reveal any evidence of radiopaque foreign body. I refer you to the EMR for further details. HPI: The patient is a 60 year old diabetic male who presents to the Emergency Room with complaints of hand infection from cat bite. This started yesterday evening and is worsening. He notes bites on both hands and swelling of both index fingers. He is having trouble bending his finger. The patient also notes the following associated symptoms, drainage from both bite wounds. The patient has started Augmentin last night and took another dose this morning for relieving factors. Current pain is rated as 0/10. Pt denies LOC, headache, fevers, chills,chest pain, breathing difficulties, numbness, weakness, or other complaints. ROS: See above HPI for pertinent positives & negatives. A total of 8 systems reviewed and were otherwise negative. 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 EYES: Normal conjunctiva. Sclera non-icteric. NECK: Inspection normal. Non-tender. Supple. No nuchal rigidity. FROM. No masses. RESPIRATORY: Clear to auscultation. No wheezes. No rales. Normal respiratory effort. CARDIAC: Normal rate. Normal rhythm. No murmurs. No rubs. Extremities warm and well perfused. Pulses equal. No JVD. MUSCULOSKELETAL: There is swelling to both index fingers bilaterally. Range of motion is somewhat impaired secondary to the swelling. There is drainage from bite wound over the left proximal index finger and over the PIP of the right index finger. Cellulitis is streaking up both hands to past the wrist. NEURO: Normal sensorium. No sensory or motor deficits noted. SKIN: No rash or jaundice noted. 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 Safe at Home: Yes Assistive Devices: Glasses Allergies Allergies Allergy/AdvReac Type Severity Reaction Status Date / Time Iodinated Contrast Media Allergy Rash Verified 05/16/21 12:01 Home Meds Home Medications Medication Instructions Recorded Confirmed multivitamin 1 tab PO QAM 04/29/19 05/16/21 amoxicillin 875 mg-potassium 1 tab PO BID 05/16/21 05/16/21 clavulanate 125 mg tablet insulin aspart U-100 100 unit/mL 22 unit SUBCUT TID 05/16/21 05/16/21 (3 mL) subcutaneous pen (Novolog Flexpen U-100 Insulin aspart) insulin degludec 100 unit/mL (3 15 unit SUBCUT QAM 05/16/21 05/16/21 mL) subcutaneous pen (Tresiba FlexTouch U-100 insulin) Previous Rx's Medication Instructions Recorded FreeStyle Stefani 2 Sensor (flash #2 ea NS 11/19/20 glucose sensor) Results & Data (ED) Vital Signs Vital Signs - 24 hr 05/16/21 10:43 05/16/21 13:26 Temperature 36.4 C L Temperature Source Temporal Artery Scan Pulse Rate 91 H Pulse Rate [Finger] 72 Respiratory Rate 18 18 Blood Pressure 160/95 H Blood Pressure [Left Arm] 190/94 H Blood Pressure Mean 116 Blood Pressure Mean [Left Arm] 126 Pulse Oximetry 97 99 Oxygen Delivery Method Room Air Room Air Sepsis Recent Fever Within 48 Hours No Sepsis New/Unexplained Change in Mental Status N/A Sepsis Action Taken by Nursing No Action Required Laboratory Data Result diagrams: 05/16/21 13:49 05/16/21 13:49 Lab Results 05/16/21 05/16/21 05/16/21 Range/Units 13:49 13:49 14:47 WBC 9.65 (4.8-10.8) K/uL RBC 4.73 (4.7-6.1) M/uL Hgb 14.6 (14.0-18.0) g/dL Hct 43.9 (42-52) % MCV 92.8 (80-100) fL MCH 30.9 (25-34) pg MCHC 33.3 (32-36) g/dL RDW Std Deviation 47.4 H (36.4-46.3) fL RDW Coeff of Mart 13.9 (11.5-14.5) % Plt Count 221 (130-400) K/uL MPV 10.7 H (7.4-10.4) fL Immature Gran % (Auto) 0.1 % Neut % (Auto) 68.0 % Lymph % (Auto) 15.9 % Robeson % (Auto) 11.9 % Eos % (Auto) 3.6 % Baso % (Auto) 0.5 % Neut # (Auto) 6.56 H (1.4-6.5) K/uL Lymph # (Auto) 1.53 (1.2-3.4) K/uL Robeson # (Auto) 1.15 H (0.11-0.59) K/uL Eos # (Auto) 0.35 (0-0.5) K/uL Baso # (Auto) 0.05 (0-0.2) K/uL Immature Gran # (Auto) 0.01 (0.00-0.02) K/uL Sodium 138 (136-145) mmol/L Potassium 3.9 (3.5-5.1) mmol/L Chloride 108 H (98-107) mmol/L Carbon Dioxide 25 (21-32) mmol/L Anion Gap 5.0 (3-11) BUN 15 (7-18) mg/dl Creatinine 0.66 (0.6-1.4) mg/dl Est Cr Clr Drug Dosing 121.4 ml/min Est GFR ( Amer) 120.9 ml/min Est GFR (Non-Af Amer) 104.3 ml/min BUN/Creatinine Ratio 23.0 H (10-20) Glucose 102 H (70-99) mg/dl Calcium 8.8 (8.5-10.1) mg/dl COVID-19 Eval Order Covid19 at [facility] SARS-CoV-2 (PCR) (Negative) 05/16/21 Range/Units 14:47 WBC (4.8-10.8) K/uL RBC (4.7-6.1) M/uL Hgb (14.0-18.0) g/dL Hct (42-52) % MCV (80-100) fL MCH (25-34) pg MCHC (32-36) g/dL RDW Std Deviation (36.4-46.3) fL RDW Coeff of Mart (11.5-14.5) % Plt Count (130-400) K/uL MPV (7.4-10.4) fL Immature Gran % (Auto) % Neut % (Auto) % Lymph % (Auto) % Robeson % (Auto) % Eos % (Auto) % Baso % (Auto) % Neut # (Auto) (1.4-6.5) K/uL Lymph # (Auto) (1.2-3.4) K/uL Robeson # (Auto) (0.11-0.59) K/uL Eos # (Auto) (0-0.5) K/uL Baso # (Auto) (0-0.2) K/uL Immature Gran # (Auto) (0.00-0.02) K/uL Sodium (136-145) mmol/L Potassium (3.5-5.1) mmol/L Chloride (98-107) mmol/L Carbon Dioxide (21-32) mmol/L Anion Gap (3-11) BUN (7-18) mg/dl Creatinine (0.6-1.4) mg/dl Est Cr Clr Drug Dosing ml/min Est GFR ( Amer) ml/min Est GFR (Non-Af Amer) ml/min BUN/Creatinine Ratio (10-20) Glucose (70-99) mg/dl Calcium (8.5-10.1) mg/dl COVID-19 Eval Order SARS-CoV-2 (PCR) NEGATIVE (Negative) Administered Medications Discontinued Medications Ampicillin Sodium/Sulbactam Sodium 3,000 mg/ Sodium Chloride 108 mls @ 200 mls/hr IV NOW STA Stop: 05/16/21 11:54 Last Infusion: 05/16/21 13:25 Dose: 0 mls/hr Documented by: [id number] Admin: 05/16/21 12:42 Dose: 200 mls/hr Documented by: [id number] Imaging Data Radiologist's Impression: Hand X-Ray 05/16/21 11:23 XR hand LT min 3V routine, XR hand RT min 3V routine CLINICAL HISTORY: cat bite bilateral hands, cellulitis, ? Foreign body COMPARISON STUDY: None. FINDINGS: No fracture or dislocation within the right or left hand. No radiopaque foreign bodies. Mild soft tissue swelling within the bilateral hands. IMPRESSION: Mild soft tissue swelling within the bilateral hands. No fractures. ACT 112: Negative or not required by law. Electronically signed by: Umair Stark M.D. 05/16/2021 12:09 PM Hand X-Ray 05/16/21 11:23 XR hand LT min 3V routine, XR hand RT min 3V routine CLINICAL HISTORY: cat bite bilateral hands, cellulitis, ? Foreign body COMPARISON STUDY: None. FINDINGS: No fracture or dislocation within the right or left hand. No radiopaque foreign bodies. Mild soft tissue swelling within the bilateral hands. IMPRESSION: Mild soft tissue swelling within the bilateral hands. No fractures. ACT 112: Negative or not required by law. Electronically signed by: Umair Stark M.D. 05/16/2021 12:09 PM Discharge Plan Visit Data Chief Complaint: Animal Bite Stated Complaint: CAT BITES TO BOTH HANDS,RED AND SWELLING ED Provider: Fransisco Norwood Discharge Problem: Cat bite, Cellulitis of hand, left, Cellulitis of right hand Forms Stand Alone Forms: [facility] [place] Self Representation Document Preparation Prescriptions Prescriptions: No Action (DME) FreeStyle Stefani 2 Sensor Kit See Rx Instructions .ROUTE .MEDSUPPLY Qty: 2 RF: 11 multivitamin tablet 1 tab PO QAM RF: 0 amoxicillin-pot clavulanate 875-125 mg tablet 1 tab PO BID RF: 0 insulin aspart U-100 [Novolog Flexpen U-100 Insulin] 100 unit/mL (3 mL) insulin pen 22 unit subcut TID RF: 0 Tresiba FlexTouch U-100 100 unit/mL (3 mL) insulin pen 15 unit SUBCUT QAM RF: 0 Referrals Referrals: Cuong Sage MD [Primary Care Provider] -
--- NOTE | 2021-05-16 12:11 | XRay Report ---
XR hand LT min 3V routine, XR hand RT min 3V routine CLINICAL HISTORY: cat bite bilateral hands, cellulitis, ? Foreign body COMPARISON STUDY: None. FINDINGS: No fracture or dislocation within the right or left hand. No radiopaque foreign bodies. Mil d soft tissue swelling within the bilateral hands. IMPRESSION: Mild soft tissue swelling within the bilateral hands. No fractures. ACT 112: Negative or not required by law. Electronically signed by: Umair Stark M.D. 05/16/2021 12:09 PM
[2021-05-16 13:59] LABS: Basophils # (auto) 0.05 K/uL (0-0.2); Basophils % (auto) 0.5 %; Eosinophils # (auto) 0.35 K/uL (0-0.5); Eosinophils % (auto) 3.6 %; Hematocrit (blood only) 43.9 % (42-52); Hemoglobin 14.6 g/dL (14.0-18.0); Immature Granulocytes # (auto) 0.01 K/uL (0.00-0.02); Immature Granulocytes % (auto) 0.1 %; Lymphocytes # (auto) 1.53 K/uL (1.2-3.4); Lymphocytes % (auto) 15.9 %; Mean Corpuscular Hemoglobin 30.9 pg (25-34); Mean Corpuscular Hgb Conc 33.3 g/dL (32-36); Mean Corpuscular Volume 92.8 fL (80-100); Mean Platelet Volume 10.7 fL (7.4-10.4); Monocytes # (auto) 1.15 K/uL (0.11-0.59); Monocytes % (auto) 11.9 %; Neutrophils # (auto) 6.56 K/uL (1.4-6.5); Platelet Count 221 K/uL (130-400); RDW Coefficient of Variation 13.9 % (11.5-14.5); RDW Standard Deviation 47.4 fL (36.4-46.3); Red Blood Count 4.73 M/uL (4.7-6.1); White Blood Count 9.65 K/uL (4.8-10.8)
[2021-05-16 14:19] LABS: Calcium 8.8 mg/dl (8.5-10.1); Creatinine Clr Calc Pharmacy 121.4 ml/min; Est GFR (African American) 120.9 ml/min; Est GFR (Non-African American) 104.3 ml/min; Potassium 3.9 mmol/L (3.5-5.1)
[2021-05-16] MEDS ORDERED: hydrALAZINE HCL 20 MG/ML VIAL IV PRN (16:37)
--- NOTE | 2021-05-16 16:39 | History & Physical Report ---
Date of Service May 16, 2021 Assessment & Plan (1) Cat bite: Plan: Cat bite cellulitis of bilateral hands- Unasyn 3 g IV every 6 hours. Acetaminophen 650 mg p.o. every 6 hours as needed pain or fever Consult to orthopedic surgery (2) Cellulitis of right hand: Plan: See above (3) Cellulitis of hand, left: Plan: See above (4) Controlled type 1 diabetes mellitus, with long-term current use of insulin: Plan: Continue Tresiba 15 units subcu every morning Patient to use own testing apparatus NovoLog coverage per patient. Holding his outpatient dosing of NovoLo units before breakfast, 5 units before lunch and 5 units before supper Check hemoglobin A1c (5) Hypertension: Plan: Blood pressure with volatility in the ED On no specific regimen as an outpatient We will place on hydralazine 10 mg IV every 4 hours as needed systolic blood pressure greater than 160 History of Present Illness Chief Complaint: The patient presents to the emergency department with complaint of worsening stiffness, redness and warmth of bilateral hands after cat bite yesterday despite taking Augmentin. Primary Care Provider: Cuong Sage MD The patient is a 60-year-old male with a past medical history including diabetes mellitus with long-term insulin use, hypertension, dyslipidemia, vitamin D deficiency and BPH. He presents to the emergency department with worsening symptoms as noted above. He was given initial dose of Unasyn 3 g IV by the ED, had x-rays performed, and a consult has been made to orthopedic surgery for assessment. Allergies Allergy/AdvReac Type Severity Reaction Status Date / Time Iodinated Contrast Media Allergy Rash Verified 05/16/21 12:01 Home Medications Medication Instructions Recorded Confirmed Type multivitamin 1 tab PO QAM 04/29/19 05/16/21 History FreeStyle Stefani 2 Sensor (flash #2 ea NS 11/19/20 03/19/21 Rx glucose sensor) amoxicillin 875 mg-potassium 1 tab PO BID 05/16/21 05/16/21 History clavulanate 125 mg tablet insulin aspart U-100 100 unit/mL 22 unit SUBCUT TID 05/16/21 05/16/21 History (3 mL) subcutaneous pen (Novolog Flexpen U-100 Insulin aspart) insulin degludec 100 unit/mL (3 15 unit SUBCUT QAM 05/16/21 05/16/21 History mL) subcutaneous pen (Tresiba FlexTouch U-100 insulin) Past Med/Surg History Medical History (Updated 05/16/21 @ 11:36 by Fransisco Norwood MD) Colonic polyp Diverticulosis DKA (diabetic ketoacidoses) Dysesthesia Gastritis Hypertension Neuritis 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 Safe at Home: Yes Assistive Devices: Glasses Review of Systems Review of Systems: The patient denies chest pain, palpitations, shortness of breath, dyspnea on exertion, cough, lower extremity swelling, sore throat, fevers, chills, sweats, weight change, fatigue, nausea, vomiting, diarrhea , constipation, abdominal pain, pelvic pain, blood in urine or stool, dysuria, urinary frequency or urgency, lightheadedness, dizziness, headache, abnormal bruising or bleeding, imbalance, focal or generalized weakness, numbness or tingling in legs, generalized arthralgias or myalgias, back or neck pain, or night sweats. The review of systems is otherwise negative other than for that already noted above, and at least 10 systems have been reviewed. Physical Exam Physical Exam: The patient is awake, alert and oriented 3, well developed and well nourished, normocephalic and atraumatic, lying in bed and in no acute distress. HEENT--PERRL, EOMI, mucous membranes and oropharynx normal Neck--supple. No JVD. No bruits. Thyroid normal, trachea midline, no adenopathy. Heart--normal S1 and S2. No murmurs, rubs or gallops. Lungs--clear bilaterally, no respiratory distress, no accessory muscle use. Abdomen--normal bowel sounds and soft. Nontender. Nondistended. Extremities/Dermatologic--index finger and thumb bilaterally with swelling, erythema and warmth, and decreased range of motion, worse on right side compared to left Neurologic--cranial nerves II through XII grossly intact. Rheumatologic--decreased range of motion of index finger and thumb bilaterally Psychiatric--normal affect. Results & Data Results & Data ([facility]) Vital Signs (Past 12 Hours) Vital Signs Temp Pulse Pulse Resp BP BP Pulse Ox 05/16/21 13:26 72 18 190/94 H 99 05/16/21 10:43 97.5 F L 91 H 18 160/95 H 97 Laboratory Results Laboratory Results WBC 9.65 K/uL (4.8-10.8) 05/16/21 13:49 RBC 4.73 M/uL (4.7-6.1) 05/16/21 13:49 Hgb 14.6 g/dL (14.0-18.0) 05/16/21 13:49 Hct 43.9 % (42-52) 05/16/21 13:49 MCV 92.8 fL (80-100) 05/16/21 13:49 MCH 30.9 pg (25-34) 05/16/21 13:49 MCHC 33.3 g/dL (32-36) 05/16/21 13:49 RDW Std Deviation 47.4 fL (36.4-46.3) H 05/16/21 13:49 RDW Coeff of Mart 13.9 % (11.5-14.5) 05/16/21 13:49 Plt Count 221 K/uL (130-400) 05/16/21 13:49 MPV 10.7 fL (7.4-10.4) H 05/16/21 13:49 Immature Gran % (Auto) 0.1 % 05/16/21 13:49 Neut % (Auto) 68.0 % 05/16/21 13:49 Lymph % (Auto) 15.9 % 05/16/21 13:49 Canadian % (Auto) 11.9 % 05/16/21 13:49 Eos % (Auto) 3.6 % 05/16/21 13:49 Baso % (Auto) 0.5 % 05/16/21 13:49 Neut # (Auto) 6.56 K/uL (1.4-6.5) H 05/16/21 13:49 Lymph # (Auto) 1.53 K/uL (1.2-3.4) 05/16/21 13:49 Canadian # (Auto) 1.15 K/uL (0.11-0.59) H 05/16/21 13:49 Eos # (Auto) 0.35 K/uL (0-0.5) 05/16/21 13:49 Baso # (Auto) 0.05 K/uL (0-0.2) 05/16/21 13:49 Immature Gran # (Auto) 0.01 K/uL (0.00-0.02) 05/16/21 13:49 Sodium 138 mmol/L (136-145) 05/16/21 13:49 Potassium 3.9 mmol/L (3.5-5.1) 05/16/21 13:49 Chloride 108 mmol/L (98-107) H 05/16/21 13:49 Carbon Dioxide 25 mmol/L (21-32) 05/16/21 13:49 Anion Gap 5.0 (3-11) 05/16/21 13:49 BUN 15 mg/dl (7-18) 05/16/21 13:49 Creatinine 0.66 mg/dl (0.6-1.4) 05/16/21 13:49 Est Cr Clr Drug Dosing 121.4 ml/min 05/16/21 13:49 Est GFR ( Amer) 120.9 ml/min 05/16/21 13:49 Est GFR (Non-Af Amer) 104.3 ml/min 05/16/21 13:49 BUN/Creatinine Ratio 23.0 (10-20) H 05/16/21 13:49 Glucose 102 mg/dl (70-99) H 05/16/21 13:49 Calcium 8.8 mg/dl (8.5-10.1) 05/16/21 13:49 COVID-19 Eval Order Covid19 at [facility] 05/16/21 14:47 Impressions Hand X-Ray 05/16/21 11:23 XR hand LT min 3V routine, XR hand RT min 3V routine CLINICAL HISTORY: cat bite bilateral hands, cellulitis, ? Foreign body COMPARISON STUDY: None. FINDINGS: No fracture or dislocation within the right or left hand. No radiopaque foreign bodies. Mild soft tissue swelling within the bilateral hands. IMPRESSION: Mild soft tissue swelling within the bilateral hands. No fractures. ACT 112: Negative or not required by law. Electronically signed by: Umair Stark M.D. 05/16/2021 12:09 PM Code Status & VTE Plan Code Status Full code VTE Prophylaxis Plan VTE Prophylaxis will be ordered: Yes PG Care Time/CCT Total # of Minutes Spent Total Time Spent with Patient: Total time spent is greater than 50% in coordination of care (as documented) at patient's floor/unit and/or counseling patient: Coding Level of Care Code INT OBSERVATION CARE 70M LVL 3 Diagnoses Cat bite W55.01XA Cellulitis of right hand L03.113 Cellulitis of hand, left L03.114 Controlled type 1 diabetes mellitus, with long-term current use of insulin E10.9 Hypertension I10
[2021-05-16] MEDS ORDERED: ACETAMINOPHEN 325 MG TAB PO PRN (19:59)
[2021-05-16] MEDS ORDERED: GLUCAGON FOR INJ 1 MG VIAL SQ PRN (19:59)
[2021-05-16] MEDS ORDERED: DEXTROSE 50% 50 ML SYRINGE IV PRN (19:59)
[2021-05-16] MEDS ORDERED: GLUCOSE 10 TABS/TUBE PO PRN (19:59)
[2021-05-16] MEDS ORDERED: CARBOHYDRATES FOR HYPOGLYCEMIA PO PRN (19:59)
[2021-05-16] MEDS ORDERED: GLUCOSE 40% GEL 15 GM TUBE PO PRN (19:59)
[2021-05-16] MEDS ORDERED: ONDANSETRON INJ 2 MG/ML 2 ML VIAL IV PRN (19:59)
[2021-05-16] MEDS ORDERED: AMPICILLIN/SULBACTAM SOD 3,000 MG in 0.9 % SODIUM CHLORIDE 100 ML IV SCH (20:00)
[2021-05-16] MEDS ORDERED: INSULIN ASPART 100 UNITS/ML 3 ML PEN SC SCH (21:00)
--- NOTE | 2021-05-16 21:02 | Consultation Report ---
ORTHOPEDIC HAND SURGERY CONSULTATION Special attention to bilateral hand infection status post cat bite. 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 He placed himself on Augmentin immediately after the injury. He not es increasing pain, redness, and swelling with complaints of the worse symptoms in bilateral index fi ngers. He was given 3 grams of Unasyn in the Emergency Department. Radiographs were taken. PAST MEDICAL HISTORY: 1. Diabetes, insulin-dependent. 2. Hypertension 3. Dyslipidemia. 4. BPH. ALLERGIES: CONTRAST DYE. MEDICATIONS: Insulin, amoxicillin. PHYSICAL EXAMINATION: Right hand exam shows a superficial-appearing laceration over the carpal tunne l without significant erythema. He has supple motion of the wrist on the right without significant e rythema. He has negative Kanavel sign in the hand. He has full range of motion of the digits with t he exception of the index finger, which is stiff and swollen. He has tenderness at the PIP joint and mild swelling surrounding the PIP joint of the index finger. Right index finger examination: Right index finger shows stiffness and swelling with decreased range of motion. He has tenderness over the PIP joint to a mild degree. He has negative Kanavel sign. MP joint shows mild erythema and swelling, but no evidence of septic joint. Both the MP and PIP joints , I could easily range without difficulty or pain. He has a puncture wound over the dorsal aspect of the PIP joint. Left index finger examination: He has a puncture wound over the radial aspect of the finger. There is scant serous drainage. He has surrounding erythema in the region. He has a negative Kanavel sign . He has no pain with passive extension of the digit. He has a moderately swollen finger, but no si gnificant tenderness of the flexor tendon sheath. 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 Bilateral hand cellulitis, status post cat bite. 2. Rule out early left index finger septic flexor tenosynovitis. 3. Rule out right index finger early septic PIP joint. PLAN: I discussed findings and treatment. At this point in time, his exam is fairly benign and I do not see any surgical indications, but we will continue to follow very closely to see if he develops a ny evidence of septic joint or flexor tenosynovitis. Should his status worsen, we would consider irr igation and debridement. Follow clinical course for approximately 24-48 hours. Job ID: [id number]
--- NOTE | 2021-05-16 21:03 | Discharge Summary ---
Date of Service May 16, 2021 Admission HPI Per Admitting Provider The patient is a 60-year-old male with a past medical history including diabetes mellitus with long-term insulin use, hypertension, dyslipidemia, vitamin D deficiency and BPH. He presents to the emergency department with worsening symptoms as noted above. He was given initial dose of Unasyn 3 g IV by the ED, had x-rays performed, and a consult has been made to orthopedic surgery for assessment. Admission Exam Per Admitting Provider The patient is awake, alert and oriented 3, well developed and well nourished, normocephalic and atraumatic, lying in bed and in no acute distress. HEENT--PERRL, EOMI, mucous membranes and oropharynx normal Neck--supple. No JVD. No bruits. Thyroid normal, trachea midline, no adenopathy. Heart--normal S1 and S2. No murmurs, rubs or gallops. Lungs--clear bilaterally, no respiratory distress, no accessory muscle use. Abdomen--normal bowel sounds and soft. Nontender. Nondistended. Extremities/Dermatologic--index finger and thumb bilaterally with swelling, erythema and warmth, and decreased range of motion, worse on right side compared to left Neurologic--cranial nerves II through XII grossly intact. Rheumatologic--decreased range of motion of index finger and thumb bilaterally Psychiatric--normal affect. Principal Diagnosis Cat bite Discharge Exam exam unable to be performed - patient left AMA without informing anyone of departure. Discharge Data Allergies Allergy/AdvReac Type Severity Reaction Status Date / Time Iodinated Contrast Media Allergy Rash Verified 05/16/21 12:01 Consultations 05/16/21 14:08 ED Decision to Admit Stat Hospital Course (1) Cat bite: Patient left AMA and did not wait to get discharge paperwork or instructions. Orthopedic surgery was unable to see him for evaluation of cellulitis vs deeper skin infection. Cat bite cellulitis of bilateral hands- Unasyn 3 g IV every 6 hours. Acetaminophen 650 mg p.o. every 6 hours as needed pain or fever Consult to orthopedic surgery (2) Cellulitis of right hand: See above (3) Cellulitis of hand, left: See above (4) Controlled type 1 diabetes mellitus, with long-term current use of insulin: Continue Tresiba 15 units subcu every morning Patient to use own testing apparatus NovoLog coverage per patient. Holding his outpatient dosing of NovoLo units before breakfast, 5 units before lunch and 5 units before supper Check hemoglobin A1c (5) Hypertension: Blood pressure with volatility in the ED On no specific regimen as an outpatient We will place on hydralazine 10 mg IV every 4 hours as needed systolic blood pressure greater than 160 Total Time Total Time Spent Total Time Spent (In Minutes): 15 minutes Discharge Plan Discharge Items Patient Disposition: Against Medical Advice Reason For Visit: CAT BITE, B/L HAND CELLULITIS Activity: Per Instructions section Non-emergency contact: Primary Care Provider Follow-up/Referrals: Cuong Sage MD [Primary Care Provider] - Pending Studies at Discharge: No Stand-Alone Forms: People Power, Smoking Cessation Skilled Items Patient informed of condition?: No Medications and DC Order Prescriptions: Continued (DME) FreeStyle Stefani 2 Sensor Kit See Rx Instructions .ROUTE .MEDSUPPLY Qty: 2 RF: 11 multivitamin tablet 1 tab PO QAM RF: 0 amoxicillin-pot clavulanate 875-125 mg tablet 1 tab PO BID RF: 0 insulin aspart U-100 [Novolog Flexpen U-100 Insulin] 100 unit/mL (3 mL) insulin pen 22 unit subcut TID RF: 0 Tresiba FlexTouch U-100 100 unit/mL (3 mL) insulin pen 15 unit SUBCUT QAM RF: 0 Discharge Orders: Left Against Medical Advice (Routine); Ordered 05/16/21 Ordered By: Dash Crane Admission Data Admit Date/Time: 05/16/21 16:20 Attending Provider: Amanuel Henry Admit Provider: Amanuel Henry Primary Care Provider: Cuong Sage Other Providers: Amanuel Henry Resident Activity Tracking Resident Involvement: Resident Care Provided Care Provided: Adult Hospital Medicine
[2021-05-17] MEDS ORDERED: NON-FORMULARY MEDICATION (Insulin Degludec [Tresiba Flextouch U-100] 100 unit/mL (3 mL) in SQ SCH (09:00)
[2021-05-17] MEDS ORDERED: MULTIVITAMIN TAB PO SCH (09:00)
== END 2021-05-16 20:20 | disposition left against medical advice (07) | DRG 603 ==
LOC: ED 10:25 → 3N 16:20 → INTOOBSV 16:20 → 3N 19:33
DX: Z20.822 Contact with and (suspected) exposure to COVID-19; E10.9 Type 1 diabetes mellitus without complications; Z91.041 Radiographic dye allergy status; W55.01XA Bitten by cat, initial encounter; I10 Essential (primary) hypertension; Z82.49 Family history of ischemic heart disease and other diseases of the circulatory system; L03.113 Cellulitis of right upper limb; L03.114 Cellulitis of left upper limb